=== PATIENT | female | born 1940 | race Caucasian/White ===

== ENCOUNTER 2017-02-15 06:31 | Inpatient (IN) | payer BC, OTHER ==
[2017-01-24 10:45] VITALS: BMI 41.0
--- NOTE | 2017-01-24 11:21 | PAT Medication Instructions ---
Service Date Jan 24, 2017. Current Home Medication List Atorvastatin (Lipitor), 10 MG PO QAM Levothyroxine (Synthroid *), 100 MCG PO QAM Lisinopril (Zestril), 2.5 MG PO QAM Meloxicam (Mobic), 7.5 MG PO QAM Metoprolol Succ (Toprol Xl) (Toprol-Xl), 50 MG PO QAM Warfarin Sod (Coumadin), 2.5 MG PO UD Warfarin Sod (Coumadin), 5 MG PO WED [Pulmicort], 2 PUFFS INH QAM Medication Instructions For Your Scheduled Surgery - Hold the following medications per prescribing physician/surgeon's instructions: Warfarin Sod (Coumadin), 2.5 MG PO UD Warfarin Sod (Coumadin), 5 MG PO WED - Hold the following medications the morning of surgery: Lisinopril (Zestril), 2.5 MG PO QAM Meloxicam (Mobic), 7.5 MG PO QAM - Take the following medications the morning of surgery with a sip of water OTHERWISE NOTHING TO EAT OR DRINK AFTER MIDNIGHT: [Pulmicort], 2 PUFFS INH QAM Metoprolol Succ (Toprol Xl) (Toprol-Xl), 50 MG PO QAM Atorvastatin (Lipitor), 10 MG PO QAM Levothyroxine (Synthroid *), 100 MCG PO QAM If you have any questions please call us at [phone] or [phone] or [phone]
[2017-01-24 12:08] LABS: BASO % 0.4 %; BASO ABS # 0.03 K/uL (0-0.2); COMPLETE YES; EOS % 2.2 %; HEMATOCRIT 43.3 % (37-47); IG% 0.3 %; LYMPH % 18.6 %; LYMPH ABS # 1.26 K/uL (1.2-3.4); MEAN CORPUSCULAR HEMOGLOBIN 32.9 pg (25-34); MEAN CORPUSCULAR HGB CONC 34.6 g/dl (32-36); MEAN PLATELET VOLUME 9.1 fL (7.4-10.4); MONO % 9.5 %; PLATELET COUNT 221 K/uL (130-400); RED BLOOD COUNT 4.56 M/uL (4.2-5.4); WHITE BLOOD COUNT 6.76 K/uL (4.8-10.8)
[2017-01-24 12:23] LABS: INR 2.3 (0.9-1.1); PARTIAL THROMBOPLASTIN RATIO 1.4; PROTHROMBIN TIME (PATIENT) 25.2 SECONDS (9.0-12.0)
[2017-01-24 13:33] LABS: BUN/CREATININE RATIO 16.1 (10-20); C-REACTIVE PROTEIN 0.69 mg/dl (0-0.29); CREATININE 0.69 mg/dl (0.60-1.20); POTASSIUM 4.3 mmol/L (3.5-5.1)
[2017-01-24 13:36] LABS: CALCIUM 9.4 mg/dl (8.5-10.1)
--- NOTE | 2017-02-12 22:54 | HISTORY & PHYSICAL EXAMINATION ---
DATE OF ADMISSION: 02/15/2017 CHIEF COMPLAINT: Right knee pain and discomfort. HISTORY OF PRESENT ILLNESS: A 76-year-old female who is now about 8 months out from a left knee replacement, doing well. She has a long history of bilateral knee pain and discomfort. The left knee is now doing well. She is really being held back by the right knee. She continues to have to use a cane due to right knee pain and discomfort. She has been through extensive conservative treatment by my partner Dr. Godoy without adequate relief. She cannot take anti-inflammatories due to Coumadin use. The shots gave her minimal relief and she would like to proceed with right knee replacement. PAST MEDICAL HISTORY: 1. Atrial fibrillation, followed by Dr. Palumbo, on Coumadin. 2. Elevated cholesterol. 3. Asthma. 4. Obesity with a BMI of 41.8. 5. Hypothyroidism. 6. Endometrial cancer. PAST SURGICAL HISTORY: 1. Hysterectomy. 2. Bilateral cyst excision. 3. Right knee arthroscopy. 4. Tonsillectomy. 5. Skin cancer. 6. Bartholin cyst abscess. 7. Left total knee replacement done on 06/08/2016. ALLERGIES: PENICILLIN WHICH CAUSES RASH. No respiratory problems. CURRENT MEDICINES: 1. Meloxicam 7.5 mg daily. 2. Metoprolol 50 mg a day. 3. Lisinopril 2.5 mg a day. 4. Atorvastatin 10 mg a day. 5. Levothyroxine 100 mcg a day. SOCIAL HISTORY: A 76-year-old white female, lives by herself. Does not smoke. FAMILY HISTORY: Noncontributory. REVIEW OF SYSTEMS: Significant for atrial fibrillation, on Coumadin. Denies any current chest pain or shortness of breath. No bleeding problems. No history of DVT or PE. PHYSICAL EXAMINATION: GENERAL: Reveals a healthy pleasant elderly female. She looks to be in reasonably good health. HEENT: Benign. NECK: Supple. No lymphadenopathy. LUNGS: Clear to auscultation. HEART: Has an irregularly irregular rhythm. ABDOMEN: Soft, nontender, nondistended. EXTREMITIES: Grossly neurovascularly intact except as follows: Examination of the right knee reveals slight varus alignment. She has got bony hypertrophy. Some mild edema distally. Range of motion is 10 degrees short of full extension to 110 degrees of flexion. No instability. No pain with hip motion. Examination of the left knee reveals well-healed incision. Range of motion is just a couple degrees short of full extension to 120 degrees of flexion. No instability. X-RAYS: X-ray of the right knee reviewed. It shows advanced right knee DJD. She has got complete loss of medial joint space. She has loose bodies around the knee. A little bit of tibiofemoral subluxation. ASSESSMENT: A 76-year-old white female 8 months out from a left knee replacement with advanced right knee degenerative joint disease. She has failed conservative treatment and would like to have her right knee replaced. PLAN: We are going to take her to the operating room and do a right total knee replacement. The risks and benefits of this procedure were explained to patient including but not limited to DVT, PE, , infection, neurologic injury, vascular injury, bleeding problems, pain, limited range of motion, stiffness, failure to relieve her symptoms, incomplete relief of symptoms, need for further surgery in the future, fracture, leg length inequality, nerve palsy, etc. The patient understands and desires to proceed. Informed consent was obtained. She knows to stop her Coumadin 5 days preop. She will hold lisinopril the morning of surgery and make sure she takes her metoprolol. We will need to check a PT and INR the morning of surgery. As far as discharge plans, she is hoping to be discharged to home. Her family is going to help and assist in her care as she does live by herself. She states that there will be somebody available for her and living with her 24 hours a day for the first 2 weeks. As far as DVT prophylaxis, we will plan to just use TEDs, SCDs, and Coumadin. We will start her on Coumadin postoperatively immediately. PALAK
[2017-02-15] VITALS (8 sets, daily range): BP systolic 102–157; BP diastolic 67–84; PULSE 70–91; TEMP 36.3–36.8; O2SAT 92–98; Ht 170.2 cm; Wt 121.2 kg
[~2017-02-15] VITALS: Ht 170.2 cm; Wt 121.2 kg
[~2017-02-15 06:31] MED LIST: ACETAMINOPHEN 500 MG TAB PO SCH; ATOR10TA82 PO; BUPIVACAINE 0.5 % 5 MG/1 ML PF 10ML VIAL ONE; BUPIVACAINE LIPOSOME 266 MG, BUPIVACAINE/EPINEPHRINE INJ 50 ML, SODIUM CHLORIDE 0.9% PF... INFIL SCH; BUPIVACAINE/EPINEPHRINE 0.25% 1:200,000 30 ML VIAL ONE; CEFAZOLIN 3000 MG/65 ML D5W 65 ML IV SCH; CLINDAMYCIN 600 MG/54 ML D5W 54 ML IV SCH; CMD25 PO; CMD5 PO; FAMOTIDINE 20 MG TAB PO SCH; GABAPENTIN 300 MG CAP PO SCH; LACTATED RINGER'S 1000ML 1,000 ML IV SCH; LACTATED RINGER'S 1000ML IV SCH; LACTATED RINGER'S 500 ML IV SCH; LISI-789 PO; MELO7.5T5 PO; METO50TA7 PO; METOCLOPRAMIDE HCL 10 MG TAB PO SCH; PULMICORT INH; SCOPOLAMINE 1.5 MG TDSY TD SCH; SYN100 PO; TRAMADOL HCL 50 MG TAB PO SCH; TRANEXAMIC ACID INJ 1,000 MG in SODIUM CHLORIDE 0.9% 100ML 100 ML IV SCH
--- NOTE | 2017-02-15 06:47 | History & Physical Bridge Note ---
H&P Re-Evaluation Bridge Note: I have examined the patient, reviewed the History & Physical and in the interval since the performance of the History & Physical I have noted the following changes of clinical significance: No changes noted
[2017-02-15 07:16] LABS: INR 1.2 (0.9-1.1); PARTIAL THROMBOPLASTIN RATIO 1.2; PROTHROMBIN TIME (PATIENT) 12.6 SECONDS (9.0-12.0)
[2017-02-15] MEDS ORDERED: MIDAZOLAM HCL 1 MG/ML 2ML VIAL ONE ×2 (07:24→09:10)
[2017-02-15] MEDS ORDERED: PROPOFOL IV EMULSION 10 MG/ML 20 ML VIAL IV ONE (07:32)
[2017-02-15] MEDS ORDERED: ATROPINE SULFATE 0.1 MG/ML 5ML SYR IV PRN (07:45)
[2017-02-15] MEDS ORDERED: NALOXONE HCL 0.4 MG/1 ML VIAL/CARP IV PRN (07:45)
[2017-02-15] MEDS ORDERED: FLUMAZENIL 0.1 MG/1 ML 10 ML VIAL IV PRN (07:45)
[2017-02-15] MEDS ORDERED: EpHEDrine SULFATE INJ 50 MG/ML AMP IV PRN (07:45)
[2017-02-15] MEDS ORDERED: LABETALOL HCL IV 5 MG/ML 20ML IV PRN (07:45)
[2017-02-15] MEDS ORDERED: ONDANSETRON INJ 2 MG/ML 2 ML VIAL IV PRN ×2 (07:45→10:45)
[2017-02-15] MEDS ORDERED: MEPERIDINE HCL 25 MG/ML CARP IV PRN (07:45)
[2017-02-15] MEDS ORDERED: PHENYLEPHRINE 100MCG/ML 5ML SYR IV PRN (07:45)
[2017-02-15] MEDS ORDERED: HYDROmorphone INJ 2 MG/ML SYR/VIAL IV PRN (07:45)
[2017-02-15] MEDS ORDERED: FENTANYL CITRATE INJ 50 MCG/1 ML 2 ML VIAL IV PRN (07:45)
[2017-02-15] MEDS ORDERED: BACITRACIN 50000 UNIT VIAL ONE (08:45)
[2017-02-15] MEDS ORDERED: SODIUM CHLORIDE 0.9% PF 50 ML VIAL ONE (08:45)
[2017-02-15] MEDS ORDERED: BUPIVACAINE/EPINEPHRINE 0.25% 1:200,000 30 ML VIAL ONE (08:45)
[2017-02-15] MEDS ORDERED: BUPIVACAINE LIPOSOME 1/3% 266 MG/20 ML VIAL INFIL ONE (08:45)
[2017-02-15] MEDS ORDERED: VANCOMYCIN 1GM/270ML NSS IV ONE (09:45)
--- NOTE | 2017-02-15 10:40 | [facility] Post Operative Brief Note ---
Immediate Operative Summary Operative Date February 15, 2017. Pre-Operative Diagnosis Advanced Right Knee Degenerative Joint Disease Post-Operative Diagnosis Advanced Right Knee Degenerative Joint Disease Procedure(s) Performed Right Total Knee Arthroplasty, Cemented Surgeon Dr. Montague Parachute Folder Surgeon(s) Farooq Black PA-C Estimated Blood Loss 50 mL Findings Right Knee DJD Fluids (cc crystalloids) 1300 cc Specimens A: Right Knee Bone and Tissue Drains None Anesthesia Spinal Complication(s) None Disposition Recovery Room / PACU
[2017-02-15] MEDS ORDERED: BISACODYL 10 MG SUPP PR PRN (10:45)
[2017-02-15] MEDS ORDERED: MAGNESIUM HYDROXIDE SUSP 30 ML UDC PO PRN (10:45)
[2017-02-15] MEDS ORDERED: ZOLPIDEM TARTRATE 5 MG TAB PO PRN (10:45)
[2017-02-15] MEDS ORDERED: HYDROmorphone INJ 1 MG/ML SYR IV PRN (10:45)
[2017-02-15] MEDS ORDERED: METOCLOPRAMIDE HCL INJ 5 MG/ML 2 ML VIAL IV PRN (10:45)
[2017-02-15] MEDS ORDERED: SILVER SULFADIAZINE 1% CR 50 GM JAR EXT PRN (10:45)
[2017-02-15] MEDS ORDERED: ALUMINUM/MAGNESIUM/SIMETH (MAALOX MAX) 30 ML UDC PO PRN (10:45)
--- NOTE | 2017-02-15 11:21 | DIAGNOSTIC IMAGING REPORT ---
RIGHT KNEE 1 OR 2 VIEWS ROUTINE CLINICAL HISTORY: AP/LATERAL IN PACU RIGHT KNEE Right postoperative evaluation COMPARISON: None. DISCUSSION: Anatomic alignment status post total right knee replacement. Surgical drains are in position. There is no evidence for soft tissue swelling. IMPRESSION: Anatomic alignment status post total right knee replacement Electronically signed by: Aroldo Kaba M.D. 02/15/2017 11:20 AM Dictated Date/Time: 02/15/2017 11:20 AM
--- NOTE | 2017-02-15 12:02 | Anesthesiology Progress Note ---
Anesthesia Post Op Note Date & Time February 15, 2017 at 12:02 Vital Signs Pain Intensity: 0 Vital Signs Past 12 Hours Date Time Temp Pulse Resp B/P Pulse Ox O2 Delivery O2 Flow Rate FiO2 02/15/17 11:55 69 19 114/51 97 Nasal Cannula 2 02/15/17 11:45 69 14 113/55 98 Nasal Cannula 2 02/15/17 11:35 70 20 104/55 98 Nasal Cannula 2 02/15/17 11:25 72 17 117/67 97 Nasal Cannula 2 02/15/17 11:15 66 18 128/65 99 Nasal Cannula 2 02/15/17 11:05 71 17 125/51 99 Nasal Cannula 2 02/15/17 10:55 82 17 136/75 97 Nasal Cannula 2 02/15/17 10:47 36.0 83 15 141/74 98 Nasal Cannula 2 02/15/17 07:00 36.8 91 22 157/78 96 Room Air Notes Mental Status: alert / awake / arousable, participated in evaluation Pt Amnestic to Procedure: Yes Nausea / Vomiting: adequately controlled Pain: adequately controlled Airway Patency, RR, SpO2: stable & adequate BP & HR: stable & adequate Hydration State: stable & adequate Neuraxial Anesthesia: was administered, sensory block is resolving Anesthetic Complications: no major complications apparent
[2017-02-15] MEDS: D5W AND 1/2NSS + 20MEQ KCL 1,000 ML IV SCH (14:07)
[2017-02-15] MEDS: ACETAMINOPHEN 500 MG TAB PO SCH ×2 (14:38→21:28)
--- NOTE | 2017-02-15 15:50 | OPERATIVE REPORT ---
DATE OF OPERATION: 02/15/2017 SURGEON: Jovan Montague MD STRATEGIES ANALYST: JESÚS Page PREOPERATIVE DIAGNOSIS: Right knee degenerative joint disease. POSTOPERATIVE DIAGNOSIS: Same. PROCEDURE PERFORMED: Right cemented posterior stabilized total knee arthroplasty. COMPLICATIONS: None. ESTIMATED BLOOD LOSS: 50 mL. FLUID REPLACEMENT: 1300 mL crystalloid fluid replacement. ANESTHESIA: Spinal with adductor canal block. DRAINS: None. SPECIMENS: Right knee sent for pathology. TOURNIQUET TIME: 53 minutes at 300 mmHg. OPERATIVE INDICATIONS: The patient is a 76-year-old female who has had a long history of bilateral knee pain and discomfort. The patient has been through extensive conservative care without adequate relief. She underwent a left knee replacement about 8 months ago and has done extremely well from this. She has elected to proceed with the right knee replacement. OPERATIVE FINDINGS: Operative findings revealed advanced right knee DJD. She had grade 4 [id number] disease in all 3 compartments are pretty extensive. She had a flexion contracture of 10 degrees. Moderate size joint effusion. OPERATIVE IMPLANTS: Operative implants consisted of: 1. Biomet Vanguard size 70 right posterior stabilized femoral component. 2. Biomet size 67 tibial tray. 3. A 10-mm posterior stabilized polyethylene insert. 4. A 31 x 8 all poly patella. OPERATIVE PROCEDURE: The patient taken to the operating room, identified and placed on the operating table in supine position. All contact areas were appropriately padded. IV antibiotics were provided by the anesthesia team. A spinal anesthetic had been implemented in the holding area. Avila catheter was placed in sterile fashion. A right thigh tourniquet was then placed and the right lower extremity was then prepped and draped in usual sterile fashion. The right leg was elevated and exsanguinated with Esmarch and tourniquet was placed at 300 mmHg. An anterior approach to the right knee was then performed through a longitudinal incision centered over the patella. Sharp dissection was carried out through the subcutaneous tissues down to the level of the extensor mechanism. A medial parapatellar arthrotomy incision was made. Some subperiosteal dissection was carried out medially. The fat pad was resected from beneath the patellar tendon. The lateral patellofemoral ligament was released. The patella was everted and knee was flexed. The osteophytes were taken off the distal femur. The ACL was chronically absent. The PCL was released from the distal femur and the tibia subluxated anteriorly. The external tibial alignment jig was then placed in the anterior face of the tibia and adjusted 14 mm medially. Proximal tibial cut was made about a millimeter of bone from the most deficient aspect of the medial tibial plateau. Tibia was then sized to a size 67. Some osteophytes were taken off medial and posteromedially. Attention was then drawn to the femur. The distal femur was entered with a sharp drill bit. Intramedullary canal was suctioned. A right 5 degree valgus cutting guide was placed. Distal femoral cutting block was pinned in place. Distal femoral cut was made to take an additional 3 mm of bone off the distal femur. Femur was then sized to a size 70. We did downsize this almost the whole size. The AP cutting block was pinned parallel to the epicondylar axis, which was 5 degrees of external rotation. The anterior cut, anterior chamfer, posterior cut, posterior chamfer cuts were made. Box cutting guide was placed and adjusted slightly lateral and the box cut was made. The knee was flexed. The remnants of the medial and lateral menisci were excised. The osteophytes were taken off the posterior aspect of the femur. Trial femoral component was placed. Tibial tray was pinned in maximum external rotation. Drill and stem punch were used to create defect in proximal tibia for the tibial tray. The knee was then trialed and the 10-mm insert fit most appropriately. Attention was then drawn to the patella. The patella was cleaned of all soft tissues. Patella thickness measured 22 mm in thickness and was cut down to 13. It was sized to a size 31 patella. Lug holes were drilled for the 31 patella. Lateral osteophyte was removed. Patella button was placed. Knee was taken through range of motion. The patella did track a little bit laterally with the tourniquet up. Once the tourniquet was down, it did track more appropriately. We elected to use these implants. All trial implants were removed. Bone plug was placed in the distal femur plate. A double batch of Palacos G cement was mixed. A right size 70 posterior stabilized femoral component, size 67 tibial tray, a 10-mm posterior stabilized polyethylene insert, and a 31 x 8 all poly patella were then cemented in place. Knee was brought out into full extension until cement hardened. A final cement check was then performed. Pericapsular tissues were injected with 100 mL of a combination of 20 mL of Exparel, 30 mL of normal saline, 50 mL of 0.25% Marcaine. The tourniquet was then let down for a tourniquet time of 53 minutes. Hemostasis was assured with use of electrocautery. The wound was once again irrigated. I then examined the knee again and the patella tracked appropriately with no thumbs test. Attention was then drawn towards closing. The extensor mechanism was then closed with a combination of #1 PDS suture and #1 Vicryl suture in a [id number] fashion. Extensor mechanism was checked and found to be intact. The subcutaneous tissues were then closed with 2-0 Dexon suture in a buried interrupted fashion. Skin was closed with skin tanja. Leg was then cleaned and dried and a sterile dressing of Xeroform, 4 x 4, sterile, cast padding and Kameron bandage was applied. The patient then transferred to the recovery room in stable condition. The patient tolerated the procedure well, no complications. All needle and sponge counts were correct at the end of the operation. I attest to the content of the Intraoperative Record and any orders documented therein. Any exceptio ns are noted below.
[2017-02-15] MEDS ORDERED: WARFARIN SOD 7.5 MG TAB PO ONE (16:00)
[2017-02-15] MEDS: CHECK SCOPOLAMINE PATCH PLACEMENT SCH (16:06)
[2017-02-15] MEDS: KETOROLAC TROMETHAMINE 15 MG/ML VIAL IV. SCH ×2 (16:06→21:27)
[2017-02-15] MEDS: CLINDAMYCIN IV 600 MG in DEXTROSE 5% ADD-VANTAGE 50ML 50 ML IV SCH (18:03)
[2017-02-15] MEDS: FERROUS GLUCONATE 324 MG TAB PO SCH (18:04)
[2017-02-15] MEDS: TRAMADOL HCL 50 MG TAB PO PRN (18:05)
--- NOTE | 2017-02-15 20:10 | PROGRESS NOTE ---
DATE: 02/15/2017 SUBJECTIVE: A 76-year-old white female postop from a right knee replacement. She is having a moderate amount of pain. Denies any chest pain or shortness of breath. Not feeling dizzy or lightheaded. OBJECTIVE: VITAL SIGNS: Temperature is 36.6. Vital signs stable. GENERAL: Reveals a pleasant elderly female. She is lying in bed. Looks reasonably comfortable. EXTREMITIES: Examination of the right leg reveals it to be well aligned. Her dressing is clean, dry and intact. She is neurologically intact. She can dorsiflex and plantarflex her foot appropriately. X-RAYS: X-rays of the right knee from recovery room were reviewed. It shows a right cemented posterior stabilized total knee arthroplasty. Components looked be in good position. No signs of problems. ASSESSMENT: A 76-year-old white female with multiple underlying comorbidities status post a right knee replacement, doing pretty well. Pain is controlled. She is neurologically intact. PLAN: 1. DVT prophylaxis including thigh-high TEDs, SCDs, and will start her back on her Coumadin, which she is on for her heart history. 2. PT/OT. Weightbearing as tolerated. Right total knee protocol. 3. Pain control - doing okay with current pain regimen. We have to be careful to limit narcotics to avoid confusion. 4. IV antibiotics x24 hours. 5. Cardiac issues. Will consult cardiology to manage her cardiac situation. 6. Disposition: She is hoping to be discharged to home with some friends and likely some home health, once adequately recovered. PALAK
[2017-02-15] MEDS: DOCUSATE SODIUM 100 MG CAP PO SCH (21:26)
--- NOTE | 2017-02-15 21:50 | CARDIOLOGY CONSULTATION ---
DATE OF CONSULTATION: 02/15/2017 REFERRING PHYSICIAN: Dr. Jovan Montague. CHIEF COMPLAINT: Atrial fibrillation. HISTORY OF PRESENT ILLNESS: Ms. Arlene Mathews is a 76-year-old woman with a history of paroxysmal atrial fibrillation who underwent right total knee replacement today. We were asked to evaluate the patient in the postoperative period. At the time of the interview, the patient claims to be feeling well, she is immediately postoperative and has an element of sedation. She also claims to have persistent anesthesia involving her legs, which she cannot currently feel. She is not reporting any pain. She states that prior to her surgery, she had some difficulty with activity due to right knee pain. She also had an element of mild exertional dyspnea which is chronic and unchanged. Overall, she denies any sense of palpitations or rapid heartbeats. She claims to have had 3 episodes of atrial fibrillation in the past, all of which appear to be associated with other acute medical problems. She does not have dyspnea at rest, she has no orthopnea or paroxysmal nocturnal dyspnea. She does not report any symptoms consistent with chest discomfort. PAST MEDICAL HISTORY: Significant for CREST syndrome, history of endometrial cancer status post resection, hypertension, hyperlipidemia; aforementioned paroxysmal atrial fibrillation, currently on metoprolol and warfarin; reactive airway disease, restrictive lung disease based on PFTs and a history of diverticulosis. PAST SURGICAL HISTORY: Significant for hysterectomy, adhesiolysis for small bowel obstruction, history of pilonidal cyst removal and tonsillectomy. The patient also had a recent left total knee replacement in May of 2016 and the right total knee replacement today. FAMILY HISTORY: Significant for breast cancer. SOCIAL HISTORY: The patient has a remote history of tobacco abuse, not currently smoking. She denies significant alcohol use. REVIEW OF SYSTEMS: A complete 10-system review of systems was performed and the pertinent positives noted in the history of present illness. The remainder being negative. PHYSICAL EXAMINATION: GENERAL: The patient appeared to be somewhat sleepy, but overall was alert and answered questions appropriately. Mood and affect appeared appropriate. CURRENT VITAL SIGNS: Include blood pressure 140/80 with a pulse of 77. HEENT: Sclerae are anicteric. Pupils are equal, reactive to light and accommodation. Extraocular movements were intact. NECK: Palpation of submandibular region did not reveal any significant lymphadenopathy. The carotids are palpable bilaterally. There are no bruits on auscultation. I did not appreciate any jugular venous distention, although the neck tissues were somewhat redundant. There was no evidence of thyromegaly. LUNGS: Auscultation of the lung apices reveal them to be clear. She had good air movement. There was no expiratory wheezing. She had normal respiratory effort without use of accessory muscles. HEART: Revealed her to be in a regular rhythm. I did not appreciate any murmurs on examination. PMI was not markedly displaced on palpation. EXTREMITIES: Evaluation of both wrists revealed radial pulses that were equal in intensity. There is no evidence of cyanosis or clubbing. Evaluation of lower extremities revealed the right leg to be bandaged. She had SCDs on both legs. There was no evidence of edema; however, she had good perfusion distally. I do not appreciate any rashes on examination today. LABORATORY: There are no laboratory studies for review. EKG is pending. On an outpatient basis, the patient did have an echocardiogram performed which revealed preserved left ventricular systolic function and stage I diastolic dysfunction. ASSESSMENT AND PLAN: 1. Paroxysmal atrial fibrillation: The patient appears to be in sinus rhythm currently. She is relatively asymptomatic with episodes of atrial fibrillation, so she may have occult episodes that are under recognized. She has, however, on metoprolol and generally speaking systemic anticoagulation. While her warfarin was held for several days leading up to her surgery is scheduled to be reintroduced this evening and this can be continued in the outpatient setting. I would not advocate any change in her medical regimen currently for atrial fibrillation. We will review EKG when it is available.
[2017-02-15] MEDS ORDERED: VANCOMYCIN INJ 1,800 MG in SODIUM CHLORIDE 0.9% 500ML 500 ML IV SCH (22:00)
[2017-02-16] MEDS: CHECK SCOPOLAMINE PATCH PLACEMENT SCH ×3 (00:11→16:45)
[2017-02-16] MEDS: D5W AND 1/2NSS + 20MEQ KCL 1,000 ML IV SCH ×2 (00:11→10:03)
[2017-02-16] MEDS: CLINDAMYCIN IV 600 MG in DEXTROSE 5% ADD-VANTAGE 50ML 50 ML IV SCH (01:44)
[2017-02-16 03:00] VITALS: BP 144/80; PULSE 70; TEMP 36.7; O2SAT 92
[2017-02-16] MEDS: KETOROLAC TROMETHAMINE 15 MG/ML VIAL IV. SCH ×2 (03:52→10:03)
[2017-02-16] MEDS: LEVOTHYROXINE 100 MCG TAB PO SCH (05:52)
[2017-02-16] MEDS: ACETAMINOPHEN 500 MG TAB PO SCH ×3 (05:54→21:32)
[2017-02-16 07:02] LABS: HEMATOCRIT 38.5 % (37-47); MEAN CELL VOLUME 97.2 fL (80-100); MEAN CORPUSCULAR HEMOGLOBIN 32.1 pg (25-34); MEAN PLATELET VOLUME 9.3 fL (7.4-10.4); PLATELET COUNT 192 K/uL (130-400); RED BLOOD COUNT 3.96 M/uL (4.2-5.4)
[2017-02-16 07:33] LABS: INR 1.3 (0.9-1.1); PROTHROMBIN TIME (PATIENT) 14.3 SECONDS (9.0-12.0)
[2017-02-16 07:34] VITALS: BP 124/75; PULSE 82; TEMP 36.8; O2SAT 93
[2017-02-16 07:39] LABS: BUN/CREATININE RATIO 19.5 (10-20); CALCIUM 8.2 mg/dl (8.5-10.1); CREATININE 0.6 mg/dl (0.60-1.20); POTASSIUM 4.4 mmol/L (3.5-5.1)
--- NOTE | 2017-02-16 08:15 | Anesthesiology Progress Note ---
Anesthesia Post Op Note Date & Time February 16, 2017 at 08:15 Vital Signs Pain Intensity: 1.0 Vital Signs Past 12 Hours Date Time Temp Pulse Resp B/P Pulse Ox O2 Delivery O2 Flow Rate FiO2 02/16/17 07:34 36.8 82 16 124/75 93 Room Air 02/16/17 03:00 36.7 70 19 144/80 92 Room Air 02/16/17 00:15 Room Air 02/15/17 22:53 36.3 75 16 154/75 92 Room Air Notes Mental Status: alert / awake / arousable, participated in evaluation Pt Amnestic to Procedure: Yes Nausea / Vomiting: adequately controlled Pain: adequately controlled Airway Patency, RR, SpO2: stable & adequate BP & HR: stable & adequate Hydration State: stable & adequate Neuraxial Anesthesia: sensory block resolved Anesthetic Complications: no major complications apparent
[2017-02-16] MEDS: PANTOprazole SOD 40 MG TAB PO SCH (08:23)
[2017-02-16] MEDS: FERROUS GLUCONATE 324 MG TAB PO SCH ×3 (08:23→17:51)
[2017-02-16] MEDS: MULTIVITAMIN TAB PO SCH (08:23)
[2017-02-16] MEDS: ATORVASTATIN 10 MG TAB PO SCH (08:24)
[2017-02-16] MEDS: DOCUSATE SODIUM 100 MG CAP PO SCH ×2 (08:24→21:33)
[2017-02-16] MEDS: LISINOPRIL 2.5 MG TAB PO SCH (08:24)
[2017-02-16] MEDS: BUDESONIDE 90 MCG INH INH SCH (08:25)
[2017-02-16] MEDS: METOPROLOL SUCC 50MG EXT REL TAB PO SCH (08:25)
--- NOTE | 2017-02-16 09:35 | CARDIOLOGY PROGRESS NOTE ---
DATE: 02/16/2017 DATE: 02/16/2017. SUBJECTIVE: Mrs. Mathews is resting comfortably at the bedside without complaints of chest pain, dyspnea, or palpitations. Postoperative pain adequately controlled. OBJECTIVE: VITAL SIGNS: Blood pressure 124/75 with a regular pulse of 82. Respiratory rate is 16. The patient is afebrile at 36.8 degrees Celsius. Saturation 93% on room air. NECK: Supple with full carotid upstrokes. No carotid bruits. Jugular venous pressure is flat at 90 degrees. There is no thyromegaly. CARDIOVASCULAR EXAMINATION: Reveals a regular rhythm with normal S1 and S2. Heart sounds are distant. No obvious murmurs. LUNGS: Clear without rales, rhonchi, or wheezes. ABDOMEN: Obese without bruits. EXTREMITIES: Reveal intact radial artery pulses bilaterally. Right lower extremity is dressed. LABORATORY DATA: CBC notes a hemoglobin of 12.7, hematocrit 38.5, white count 9.1, platelet count 192,000. Electrolytes note a sodium of 132, potassium 4.4, chloride 96, bicarbonate 32, BUN 12, creatinine 0.6, glucose 124. INR is 1.3. MEDICATIONS: 1. Toprol-XL 50 mg per day. 2. Zestril 2.5 mg daily. 3. Lipitor 10 mg at bedtime. 4. Warfarin 7.5 mg x1. 5. Protonix 40 mg per day. 6. Synthroid 0.1 mg daily. 7. Pulmicort 2 puffs q.a.m. 8. Colace 100 mg b.i.d. 9. Iron sulfate 325 mg t.i.d. 10. Toradol 50 mg IV q. 6 hours. IMPRESSION AND PLAN: 1. Status post right total knee replacement per Dr. Montague. 2. Paroxysmal atrial fibrillation -- patient remains in sinus rhythm clinically. Will restart warfarin when able. 3. Hypertension -- controlled. 4. Hypercholesterolemia.
[2017-02-16 11:22] VITALS: BP 117/75; PULSE 76; TEMP 36.9; O2SAT 94
[2017-02-16] MEDS ORDERED: ULT50X PO (12:43)
[2017-02-16] MEDS ORDERED: ACET-1138 PO (12:43)
--- NOTE | 2017-02-16 12:48 | Discharge Instructions ---
Discharge Instructions Date of Service February 16, 2017. Admission Reason for Admission: Right Knee Degenerative Joint Disease Discharge Discharge Diagnosis / Problem: Right Knee Replacement Discharge Goals Goal(s): Decrease discomfort, Improve function, Increase independence, Improve disease control, Therapeutic intervention Activity Recommendations Activity Level: Assistance Required Therapies: Physical Therapy, Occupational Therapy Weightbearing Status: Right weightbearing . Additional Information Patient informed of condition: Yes Advance Directives: No DNR: No Level of Care: Acute Rehab Communicable Disease: No Prognosis: Improving Instructions / Follow-Up Instructions / Follow-Up ACTIVITY RECOMMENDATIONS: Physical Therapy: * You will go to physical therapy three times each week for four to six weeks after your surgery in order to regain your knee range of motion and to retrain your knee to work properly. * It is just as important to make sure you are getting your knee perfectly straight as it is to regain your knee bend. * Taking a pain pill an hour before therapy can help you have a more productive and comfortable therapy session. Home Exercise: * You were shown a series of exercises (heel props, heel slides, etc.) in the hospital. Do these exercises three to four times each day including the exercises you were shown in physical therapy. Walking: * Get up and walk several times each day. For the first four weeks, try not to stand or walk for more than one hour at a time. If you do stand or walk for more than one hour, you will not hurt anything, but your knee and leg will likely swell. * As you feel comfortable, you may change from the walker or crutches to a cane and then to independent walking. MEDICATIONS: New Medicine: * You will likely be taking one or more of these medications: 1. Tramadol - A quick and shorter-acting pain medication. Take one to two tablets every four to six hours to lessen your pain. 2. Coumadin - Thins your blood to lessen the chance of forming a blood clot. * The most common side effects of pain medicine and iron are nausea and constipation. If nausea or constipation is too much of a problem or if you have any questions about your new medicines or doses, call [facility] at [phone]. We will try to help you manage these issues. VERY IMPORTANT TO READ AND REVIEW" Pain: * The immediate post-operative period after knee replacement surgery is often quite painful. * You are given a prescription for pain medicine. You should take it, as directed, when you need it, especially before physical therapy and before going to bed. Pain that interferes with sleep is very common and can last several months. * You will likely need pain medicine for the first four to six weeks. It will not stop all of the pain. The pain will lessen and as you feel better, you may change to milder pain medicine such as Tylenol. * The most common side effects of pain medicine are nausea and constipation, so don't take more than you need. SPECIAL CARE INSTRUCTIONS: TEDs/Elastic Stockings: * The white elastic stockings help limit swelling and prevent blood clots from forming in your legs. The more you wear them, the more they work. * Wear them for six weeks after knee replacement surgery and four weeks after partial knee replacement. Prevention of Infection: * Take antibiotics one hour before any dental cleaning, dental work, urological procedure, gastrointestinal procedure or any invasive surgery in order to prevent your new joint from getting infected. * You may get the antibiotics from the doctor performing the procedure or you may call our office at before and we will call in a prescription to the pharmacy of your choice. Things to Watch For: * Drainage from the incision site that occurs more than one week after your surgery. * Severely increased knee/leg pain or swelling. * Increased redness at the incision site. * Fever above 102 degrees Fahrenheit. * Unusual chest pain or shortness of breath. * Unusual pain or burning with urination. Call [facility] at with any of the above problems or if you have any questions about your medicines or recovery. FOLLOW UP VISIT: Make an appointment to see your doctor for approximately two weeks after surgery for a progress check and staple removal by calling the office at . Current Hospital Diet Patient's current hospital diet: Regular Diet Discharge Diet Recommended Diet: Regular Diet Procedures Procedures Performed: Right Total Knee Arthroplasty, Cemented Pending Studies Studies pending at discharge: no Medical Emergencies . Who to Call and When: Medical Emergencies: If at any time you feel your situation is an emergency, please call [phone] immediately. . Non-Emergent Contact Non-Emergency issues call your: Primary Care Provider, Surgeon . . "Provider Documentation" section prepared by Jovan Montague. . Business Administration Teacher Recommendations Business Administration Teacher Recommendations: Adjust coumadin dose to keep INR between 2.0 and 3.0 Core Measure Problem Core Measures: None
--- NOTE | 2017-02-16 12:54 | PROGRESS NOTE ---
DATE: 02/16/2017 SUBJECTIVE: 76-year-old white female postop day 1 from right knee replacement. She is doing pretty well. Pain is controlled. She does have difficulty getting around without significant assistance. She denies any chest pain or shortness of breath. OBJECTIVE: VITAL SIGNS: Temperature 36.9. Vital signs stable. PHYSICAL EXAMINATION: GENERAL: Pleasant elderly female. She is sitting up in her bedside chair and looks pretty comfortable. EXTREMITIES: Examination of the right leg reveals the dressing to be clean, dry and intact. She can dorsiflex and plantarflex her foot appropriately. She is neurologically intact. LABORATORY DATA: Hemoglobin is 12.7. Hematocrit 38.5. Electrolytes are stable. ASSESSMENT: 76-year-old white female postop day 1 from a left total knee replacement, doing pretty well. She is fairly limited in her physical capacity due to just age and multiple medical issues and deconditioning. PLAN: 1. DVT prophylaxis including thigh-high TEDS, SCDs, and she is back on her Coumadin. Will monitor this with a goal of keeping her INR between 2 and 3. 2. PT and OT. Weight bear as tolerated. Right total knee protocol. 3. Pain control. Doing well with current pain regimen. 4. Disposition: Disposition is pending. She was hoping to go home, but feels now that is unlikely as she is requiring a lot of assistance. We are looking into her rehab/correction facility options for her.
[2017-02-16 15:29] VITALS: BP 145/77; PULSE 83; TEMP 36.7; O2SAT 95
[2017-02-16] MEDS ORDERED: WARFARIN SOD 5 MG TAB PO ONE (16:00)
[2017-02-16] MEDS ORDERED: NURSING VERBAL MED ORDER ONE (16:00)
[2017-02-16 16:10] VITALS: BP 148/83; PULSE 81; TEMP 36.7; O2SAT 94
[2017-02-16 23:40] VITALS: BP 182/97; PULSE 83; TEMP 36.7; O2SAT 92
[2017-02-17] VITALS (7 sets, daily range): BP systolic 110–187; BP diastolic 74–87; PULSE 78–98; TEMP 36.2–37.1; O2SAT 92–97
[2017-02-17] MEDS: CHECK SCOPOLAMINE PATCH PLACEMENT SCH
[2017-02-17 05:59] LABS: PROTHROMBIN TIME (PATIENT) 21.5 SECONDS (9.0-12.0)
[2017-02-17] MEDS: ACETAMINOPHEN 500 MG TAB PO SCH ×3 (06:02→21:41)
[2017-02-17] MEDS: LEVOTHYROXINE 100 MCG TAB PO SCH (06:02)
--- NOTE | 2017-02-17 07:29 | PROGRESS NOTE ---
DATE: 02/17/2017 SUBJECTIVE: 76-year-old white female postop day 2 from right knee replacement. She is doing pretty well. Pain is controlled. She has been a little but mildly confused since surgery. No focal neurological issues. Denies any chest pain or shortness of breath. OBJECTIVE: VITAL SIGNS: Temperature 36.2. Vital signs stable. PHYSICAL EXAMINATION: GENERAL: Reveals a pleasant elderly female. She is lying in bed. She is awake, alert and oriented. EXTREMITIES: Examination of the right leg reveals a little bit of bloody drainage on her dressing. She can dorsiflex and plantarflex her foot appropriately. She is neurologically intact. LABORATORY DATA: INR is 2.0. ASSESSMENT: 76-year-old white female with multiple medical issues postop day 2 from right knee replacement. She has had some mild confusion likely related to surgery, anesthesia, medicines, and foreign environment. There are no focal neurological deficits and she is alert and relatively appropriate this morning. PLAN: 1. DVT prophylaxis including thigh-high TEDs, SCDs, and Coumadin. Her INR is in the therapeutic range. 2. PT/OT. Weightbearing as tolerated. Right total knee protocol. 3. Pain control, doing pretty well with current pain regimen. We are going to limit narcotics to avoid confusion issues. 4. Disposition: She is hoping to be discharged to rehab or penitentiary facility. She was initially planning to go home, but realizes this is less likely. She has multiple medical issues and needs some more assistance.
[2017-02-17] MEDS: BUDESONIDE 90 MCG INH INH SCH (08:29)
[2017-02-17] MEDS: MULTIVITAMIN TAB PO SCH (08:30)
[2017-02-17] MEDS: FERROUS GLUCONATE 324 MG TAB PO SCH ×3 (08:30→17:56)
[2017-02-17] MEDS: METOPROLOL SUCC 50MG EXT REL TAB PO SCH (08:30)
[2017-02-17] MEDS: PANTOprazole SOD 40 MG TAB PO SCH (08:30)
[2017-02-17] MEDS: ATORVASTATIN 10 MG TAB PO SCH (08:30)
[2017-02-17] MEDS: DOCUSATE SODIUM 100 MG CAP PO SCH ×2 (08:32→21:40)
[2017-02-17] MEDS: LISINOPRIL 2.5 MG TAB PO SCH (08:32)
[2017-02-17] MEDS: TRAMADOL HCL 50 MG TAB PO PRN ×2 (09:14→17:59)
--- NOTE | 2017-02-17 09:22 | CARDIOLOGY PROGRESS NOTE ---
DATE: 02/17/2017 SUBJECTIVE: Mrs. Mathews is resting comfortably in bed without complaints of chest pain, dyspnea or palpitations. OBJECTIVE: VITAL SIGNS: Blood pressure is 110/87 with a regular pulse of 86. Respiratory rate is 18. The patient is afebrile at 36.2 degrees Celsius. Saturation is 92% on room air. NECK: Supple with full carotid upstrokes. There are no obvious bruits. Jugular venous pressure is difficult to assess. CARDIOVASCULAR: Reveals a regular rhythm with normal S1 and S2. Heart sounds are distant. No obvious bruits. LUNGS: Clear without rales, rhonchi or wheezes. ABDOMEN: Obese without bruits. EXTREMITIES: Reveal intact radial artery pulses bilaterally. Right lower extremity is dressed. DATA: INR is 2.0. IMPRESSION AND PLAN: 1. Status post right total knee replacement -- per Dr. Montague. 2. Paroxysmal atrial fibrillation -- in sinus rhythm this morning clinically. Was told she had paroxysmal atrial fibrillation overnight. INR is now therapeutic. 3. Hypertension -- adequate control. 4. Hypercholesterolemia.
[2017-02-17] MEDS ORDERED: WARFARIN SOD 3 MG TAB PO ONE (16:00)
[2017-02-18] MEDS: LEVOTHYROXINE 100 MCG TAB PO SCH (05:28)
[2017-02-18] MEDS: ACETAMINOPHEN 500 MG TAB PO SCH ×2 (05:29→13:58)
[2017-02-18 05:45] LABS: INR 2.2 (0.9-1.1); PROTHROMBIN TIME (PATIENT) 23.9 SECONDS (9.0-12.0)
[2017-02-18] MEDS: TRAMADOL HCL 50 MG TAB PO PRN ×3 (05:45→15:23)
[2017-02-18 07:50] VITALS: BP 148/76; PULSE 75; TEMP 36.5; O2SAT 93
--- NOTE | 2017-02-18 08:04 | PROGRESS NOTE ---
DATE: 02/18/2017 DATE: 02/18/2017. SUBJECTIVE: A 76-year-old white female postop day 3 from a right total knee replacement. She is doing pretty well. She is awake, alert and oriented. Having some pain but reasonably controlled. No chest pain or shortness of breath. Not feeling dizzy or lightheaded. OBJECTIVE: VITAL SIGNS: Temperature 36.6. Vital signs stable. PHYSICAL EXAMINATION: GENERAL: Reveals a healthy, pleasant elderly female. She is lying in bed, looks reasonably comfortable. EXTREMITIES: Examination of the right leg reveals some moderate swelling. She does have pretty extensive bruising around her incision and some blistering particularly laterally. A little seeping of the blisters as well. She can dorsiflex and plantarflex her foot appropriately. Her compartments are soft. ASSESSMENT: A 76-year-old white female postop day 3 from a right knee replacement with a history of atrial fibrillation and on Coumadin. She is doing pretty well. Having quite a bit of swelling likely related to her surgery and just Coumadin use and bruising. No signs of compartment issues or other concerns. PLAN: 1. DVT prophylaxis including thigh-high TEDs, SCDs, and Coumadin. She is currently now therapeutic. 2. PT/OT. She can weightbear as tolerated. Right total knee protocol. 3. Pain control. Doing reasonably well with current pain regimen. We have to be careful to avoid narcotics to avoid confusion. 4. Disposition: Plan to discharge to either rehab or long term facility. We will hopefully hear today and transfer her today.
[2017-02-18] MEDS: METOPROLOL SUCC 50MG EXT REL TAB PO SCH (08:25)
[2017-02-18] MEDS: FERROUS GLUCONATE 324 MG TAB PO SCH ×2 (08:26→12:29)
[2017-02-18] MEDS: ATORVASTATIN 10 MG TAB PO SCH (08:26)
[2017-02-18] MEDS: MULTIVITAMIN TAB PO SCH (08:26)
[2017-02-18] MEDS: PANTOprazole SOD 40 MG TAB PO SCH (08:26)
[2017-02-18] MEDS: BUDESONIDE 90 MCG INH INH SCH (08:26)
[2017-02-18] MEDS: DOCUSATE SODIUM 100 MG CAP PO SCH (08:26)
[2017-02-18] MEDS: LISINOPRIL 2.5 MG TAB PO SCH (08:26)
--- NOTE | 2017-02-18 09:40 | CARDIOLOGY PROGRESS NOTE ---
DATE: 02/18/2017 DATE: 02/18/2017. SUBJECTIVE: Mrs. Mathews is resting comfortably in the bedside chair without complaints of chest pain, dyspnea, or palpitations. She is anxious for hospital discharge. Postoperative pain is adequately controlled. OBJECTIVE: VITAL SIGNS: Blood pressure is 125/75. Pulse 75. Respiratory rate is 18. The patient is afebrile at 36.5 degrees Celsius. Saturation 93% on room air. NECK: Supple with full carotid upstrokes. No carotid bruits. Jugular venous pressure is flat at 90 degrees. There is no thyromegaly. CARDIOVASCULAR EXAMINATION: Reveals a regular rhythm with normal S1 and S2. Heart sounds are distant. No obvious murmurs. No S3. LUNGS: Clear without rales, rhonchi, or wheezes. ABDOMEN: Obese without bruits. EXTREMITIES: Reveal intact radial artery pulses bilaterally. Right lower extremity is dressed. LABORATORY DATA: INR is 2.2. IMPRESSION AND PLAN: 1. Status post right total knee replacement, management per Dr. Montague. 2. Paroxysmal atrial fibrillation -- remains in sinus rhythm on physical examination. INR is now therapeutic. 3. Hypertension -- controlled. 4. Hypercholesterolemia. MTDD
[2017-02-18 12:15] VITALS: BP 148/76; PULSE 75; TEMP 36.5; O2SAT 93
[2017-02-18] MEDS ORDERED: WARFARIN SOD 2.5 MG TAB PO SCH (16:00)
--- NOTE | 2017-02-23 16:11 | DISCHARGE SUMMARY ---
ADMITTING PHYSICIAN AND SURGEON: Dr. Montague. ADMITTING DIAGNOSIS: Right knee degenerative joint disease. SURGERY PERFORMED: Right total knee arthroplasty. SECONDARY DIAGNOSES: Include atrial fibrillation, elevated cholesterol, asthma, obesity, hypothyroidism, endometrial cancer. CONSULTS: Dr. Palumbo, postoperative cardiac care. HISTORY AND PHYSICAL EXAMINATION: Well documented in the patient's chart. HOSPITAL COURSE: The patient was admitted on 02/15/2017 and underwent total knee arthroplasty, tolerated the procedure well, there were no complications and transferred to the PACU postoperatively and later to the orthopedic floor for further care. She was given clindamycin for antibiotic prophylaxis, BRIGIDO stockings, SCDs and Coumadin for DVT prophylaxis. Her INR was monitored daily and dosed accordingly. Hemoglobin, hematocrit and vital signs were monitored during her hospital stay and remained stable. She did not require any blood transfusions. She was followed by Dr. Palumbo with cardiology service throughout her hospital stay as well. By postoperative day #3, she was tolerating a general diet, pain was controlled with oral pain medicine. She was participating in physical therapy and had no signs or symptoms of deep vein thrombosis. On postop day #3, she was discharged to a rehab facility. She was given printed discharge instructions including new prescriptions for extra strength Tylenol and tramadol for pain. Continue her home medicines including warfarin, continue physical therapy, weightbearing as tolerated, BRIGIDO stockings and follow up with Dr. Montague in 10-12 days or sooner if there are any problems or concerns.
== END 2017-02-18 15:46 | DRG 470 ==
LOC: ENRESERVDT → ENRESERVTM → C.ACU 06:31 → C.3E 06:45
PROVIDERS: ADMIT Orthopaedic Surgery Sports Medicine; ATTEND Orthopaedic Surgery Sports Medicine
PROC: 0SRC0J9 Replacement of Right Knee Joint with Synthetic Substitute, Cemented, Open Approach (ICD-10-PCS; principal; 2017-02-15 08:50)
DX: M17.11 Unilateral primary osteoarthritis, right knee (principal); Z68.41 Body mass index [BMI] 40.0-44.9, adult; E66.01 Morbid (severe) obesity due to excess calories; I48.91 Unspecified atrial fibrillation; E78.00 Pure hypercholesterolemia, unspecified; J45.909 Unspecified asthma, uncomplicated; E03.9 Hypothyroidism, unspecified; R41.0 Disorientation, unspecified; R53.81 Other malaise; I10 Essential (primary) hypertension; M25.461 Effusion, right knee; Z96.652 Presence of left artificial knee joint; Z79.1 Long term (current) use of non-steroidal anti-inflammatories (NSAID); Z79.01 Long term (current) use of anticoagulants; Z79.899 Other long term (current) drug therapy; Z87.891 Personal history of nicotine dependence; Z85.42 Personal history of malignant neoplasm of other parts of uterus

== ENCOUNTER → 2017-02-21 | Outpatient (CLI) | payer BC ==
[~2017-02-21] MED LIST changes: +ACET-1138 PO; -ACETAMINOPHEN 500 MG TAB PO SCH; -BUPIVACAINE 0.5 % 5 MG/1 ML PF 10ML VIAL ONE; -BUPIVACAINE LIPOSOME 266 MG, BUPIVACAINE/EPINEPHRINE INJ 50 ML, SODIUM CHLORIDE 0.9% PF... INFIL SCH; -BUPIVACAINE/EPINEPHRINE 0.25% 1:200,000 30 ML VIAL ONE; -CEFAZOLIN 3000 MG/65 ML D5W 65 ML IV SCH; -CLINDAMYCIN 600 MG/54 ML D5W 54 ML IV SCH; -FAMOTIDINE 20 MG TAB PO SCH; -GABAPENTIN 300 MG CAP PO SCH; -LACTATED RINGER'S 1000ML 1,000 ML IV SCH; -LACTATED RINGER'S 1000ML IV SCH; -LACTATED RINGER'S 500 ML IV SCH; -METOCLOPRAMIDE HCL 10 MG TAB PO SCH; -SCOPOLAMINE 1.5 MG TDSY TD SCH; -TRAMADOL HCL 50 MG TAB PO SCH; -TRANEXAMIC ACID INJ 1,000 MG in SODIUM CHLORIDE 0.9% 100ML 100 ML IV SCH; +ULT50X PO
[2017-02-21 10:40] LABS: INR 2.2 (0.9-1.1); PROTHROMBIN TIME (PATIENT) 23.9 SECONDS (9.0-12.0)
== END | disposition home or self-care (01) ==
LOC: C.LABVPSUA 10:21
PROVIDERS: ATTEND Internal Medicine Critical Care Medicine
DX: I48.91 Unspecified atrial fibrillation (principal)

== ENCOUNTER 2019-03-30 03:23 | Inpatient (IN) ==
--- OUTSIDE RECORDS SUMMARY | 2019-03-30 03:26 | External Medical Summary | Continuity of Care Document ---
:1940 Author Name Floyd Gaytan, Provider Address Unavailable Unavailable , Care Team Providers Name Role Phone Rayray Villalta [email or web address] Chai VILLALTA M.D. 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) Reactive airway disease (493.90) (J45.909) Encounter for long-term (current) use of medications (V58.69 ) (Z79.899) Hyperlipidemia (272.4) (E78.5) Paroxysmal atrial fibrillation (427.31) (I48.0) Hypertension (401.9) (I10) Muscle weakness (728.87) (M62.81) Left shoulder pain (719.41) (M25.512) Arthritis (716.90) (M19.90) Right ankle pain (719.47) (M25.571) Shortness of breath (786.05) (R06.02) Encounter for long-term (current) use of NSAIDs (V58.64) (Z7 9.1) Elevated antibody levels (795.79) (R76.0) Right knee pain (719.46) (M25.561) Low back pain (724.2) (M54.5) Osteopenia (733.90) (M85.80) Pulmonary function studies abnormal (794.2) (R94.2) History of dermatitis (V13.3) (Z87.2) St atus: Resolved Fatigue (780.79) (R53.83) Hyperglycemia (790.29) (R73.9) Restrictive lung disease (518.89) (J98.4) Hypothyroidism (244.9) (E03.9) Allergies and Adverse Reactions Penicillins (Allergy) Reaction: Rash Medications Meloxicam 7.5 MG Oral Tablet; take 1 tablet by mouth o nce daily Soljacqueline, M.D. Kun. Start: 25-May-2012 Quantity: 90 Refills: 3 Warfarin Sodium 5 MG Oral Tablet; TAKE 1 TABLET BY MOUTH ONCE DAILY DIRECTED. Lucila Palumbo Start: 01-Feb-2013 Quantity: 1 90 Tablet Bottle Refills: 3 Lisinopril 2.5 MG Oral Tablet; TAKE ONE TABLET BY MOUT H DAILY Lucila Villalta Start: 06-May-2015 Quantity: 90 Refills: 3 Atorvastatin Calcium 10 MG Oral Tablet; TAKE 1 TABLET BY MOUTH ONCE DAILY AT BEDTIME. Lucila Villalta Start: 14-Oct-2014 Quantity: 90 Refills: 3 Levothyroxine Sodium 100 MCG Oral Tablet; TAKE ONE TAB LET BY MOUTH DAILY Lucila Villalta Start: 24-Jan-2012 Quantity: 90 Refills: 3 Metoprolol Succinate ER 50 MG Oral Table t Extended Release 24 Hour; TAKE ONE TABLET BY MOUTH DAILY Lucila Villalta Start: 06-May-2015 Quantity: 90 Refills: 3 Fluocinonide 0.05 % External Cream; APPLY TWICE DAILY DIRECTED NEEDED Lucila Villalta 120 GM Tube Quantity: 3 Refills: 6 Pulmicort Flexhaler 180 MCG/ACT Inhalati on Aerosol Powder Breath Activated; USE 2 PUFFS BY MOUTH 2 TIMES A DAY Lucila Villalta Start: 16-Aug-2014 Quantity: 1 Refills: 11 Procedures History of Laparoscopic Lysis Of Intestinal Status: Completed 20-Jan-2010 0:00 Adhesions History of Hysterectomy Status: Complete d 10-Oct-2005 0:00 History of Pilonidal Cyst Resection Stat us: Completed History of Tonsillectomy Status: Complet ed History of Complete Colonoscopy Status: Completed Immunizations Fluzone INJ On: 19-Sep-2012 10:40 Lot #: [id number], [employer] PASTEUR Influenza On: 17-Jul-2013 11:25 Lot #: [id number], [employer]FI PASTEUR Fluzone High-Dose Intramuscular Suspension On: 16-Aug-2014 11 :47 Lot #: [id number], [employer]OFI PASTEUR Fluzone High-Dose Intramuscular Suspension On: 10-Aug-2017 15 :11 Lot #: [id number], SANOFI PASTEUR Family History Mother Family history of Congestive Heart Failure Status: Active Family history of Breast Cancer (V16.3) Status: Active Social History - Smoking Status Former smoker Plan of Treatment Planned Encounters Appointment; Rayray Villalta M.D. Start: 11-Jul-2019 11:[address] Planned Observations Planned Goals not documented Results No Known Results Results not documented Vital Signs 13-Mar-2019 15:54 other 2.5 Comments: INR other [id number] Comments: INR Goal Encounters Appointment; Rashaad Palumbo M.D. 29-Dec-2018 15:15 Encounter Diagnosis: Problem not documented Appointment; Rayray Villalta M.D. 28-Dec-2018 13:30 Encounter Diagnosis: Problem not documented Appointment; Rayray Villalta M.D. 10-Aug-2017 14:45 Encounter Diagnosis: Problem not documented Appointment; [facility] 28-Jul-2017 10:50 Encounter Diagnosis: Problem not documented Appointment; Rashaad Palumbo M.D. 04-Jul-2017 13:45 Encounter Diagnosis: Problem not documented Appointment; Ryaray Villalta M.D. 11-Jul-2019 11:45 Encounter Diagnosis: Problem not documented
[2019-03-30] MEDS ORDERED: ONDANSETRON INJ 2 MG/ML 2 ML VIAL IV STA (03:27)
[2019-03-30] MEDS ORDERED: SODIUM CHLORIDE 0.9% 1000ML 1,000 ML IV SCH (03:30)
[2019-03-30] MEDS ORDERED: PANTOprazole 80 MG in DEXTROSE 5% 100 ML IV STA (03:35)
--- NOTE | 2019-03-30 03:35 | Emergency Department Note ---
Entered by Vinicius Rodríguez acting as a scribe for Hanna Donohue MD History of Present Illness General Chief complaint: GI Bleed Stated complaint: GI BLEED Time Seen by Provider: 03/30/19 03:25 Source: patient History of Present Illness Provider complaint: Bloody emesis Onset (ago): hour(s) less than 1 Location: abdomen Pain Consistency: + intermittent Exacerbated By: + none Associated symptoms: + denies other symptoms, + nausea/vomiting and + other (abdominal hardness) The patient is an 78 y/o female who presents to the emergency department for evaluation of intermittent bloody emesis that occurred prior to arrival. The patient states that she woke up and had blood in her emesis that was a browner color as well as an abdomen that feels hard. She notes that she is on Coumadin for A-Fib. She reports that she takes her INR levels at home once a month, last taken three weeks ago at 2.5. She notes she has had GI issues and abdominal surgeries in the past, as well as had similar symptoms roughly three years ago. The patient denies any other symptoms. Home Medications Home Medications Medication Instructions Recorded Confirmed Type atorvastatin 10 mg PO DAILY 10/28/18 03/30/19 History levothyroxine 100 mg PO DAILY 10/28/18 03/30/19 History lisinopril 2.5 mg PO DAILY 10/28/18 03/30/19 History meloxicam 7.5 mg PO DAILY 10/28/18 03/30/19 History metoprolol succinate 50 mg PO DAILY 10/28/18 03/30/19 History warfarin 2.5 mg PO DAILY 10/28/18 03/30/19 History polyethylene glycol 3350 [Miralax] 17 gm PO DAILY PRN #1 ea 04/01/19 Rx sennosides-docusate sodium [Stool 1 tab PO BID #1 tab 04/01/19 Rx Softener-Stimulant Laxat] Allergies Allergy/AdvReac Type Severity Reaction Status Date / Time Penicillins Allergy Intermediate RASH AND Verified 03/30/19 04:39 ITCHING ON TORSO. FRAGRANCE AdvReac Sneezing Uncoded 03/30/19 04:39 Past Med/Surg History Medical History Endometrial cancer Surgical History S/P partial hysterectomy Family History Other Family history non-contributory Social History Preferred Language: Polish Communication Ability: Effective Baby Stroller Rental Clerk Required: No Beliefs That Will Affect Care: None Current Living Situation: Alone Other Information That Helps Us Care for You: No Feels Safe at Home: Yes Safety Concerns: Feels Safe At This Time Smoking Status: Former smoker Smoking End Date: October 31, 1998 Hx Alcohol Use: Yes Alcohol type: wine Hx Substance Use: No Review of Systems See HPI for pertinent positives & negatives. and A total of 10 systems reviewed and were otherwise negative Physical Exam Vital Signs Vital Signs - 24 hr 03/30/19 03:42 03/30/19 03:43 03/30/19 03:59 Temperature 36.5 C Temperature Source Oral Sepsis Recent Fever Within 48 Hours No Sepsis New/Unexplained Change in Mental Status No Sepsis Action Taken by Nursing No Action Required Pulse Rate 76 76 Pulse Rate [Apical] 74 Pulse Rhythm Irregular Irregular Pulse Rhythm [Apical] Regular Respiratory Rate 18 18 Respiratory Effort / Characteristics Non-Labored Spontaneous Respiratory Depth Normal Normal Respiratory Pattern Regular Blood Pressure 176/108 H Blood Pressure [Left Arm] 138/69 Blood Pressure Mean 130 Blood Pressure Mean [Left Arm] 92 Pulse Oximetry 93 93 91 Oxygen Delivery Method Room Air Room Air Room Air Oxygen Flow Rate 03/30/19 04:45 03/30/19 04:47 03/30/19 05:26 Temperature Temperature Source Sepsis Recent Fever Within 48 Hours Sepsis New/Unexplained Change in Mental Status Sepsis Action Taken by Nursing Pulse Rate Pulse Rate [Apical] 77 72 Pulse Rhythm Pulse Rhythm [Apical] Regular Regular Respiratory Rate 18 18 Respiratory Effort / Characteristics Respiratory Depth Normal Normal Respiratory Pattern Blood Pressure Blood Pressure [Left Arm] 136/69 140/80 Blood Pressure Mean Blood Pressure Mean [Left Arm] 91 100 Pulse Oximetry 85 L 98 98 Oxygen Delivery Method Room Air Nasal Cannula Room Air Oxygen Flow Rate 3 Vital signs reviewed. General: Well-appearing 78 yo female, in no significant distress. HEENT: No scleral icterus, PERRLA, neck supple. Atraumatic. Cardiovascular: Regular rate and rhythm, no extra sounds. Pulmonary: Clear to auscultation bilaterally, normal work of breathing. Abdomen: Soft, nontender, distended abdomen with positive tympany, positive bowel sounds. Musculoskeletal: Atraumatic, no peripheral edema. Neurologic: Patient awake alert and oriented x 3. Skin: Warm, dry, no rash Course 0326: The patient was evaluated in room B02. A complete history and physical e xam was performed. Administered Medications Atorvastatin Calcium (Lipitor) 10 mg PO DAILY SONIDO Stop: 05/01/19 08:59 Last Admin: 04/01/19 09:41 Dose: 10 mg Documented by: [id number] Levothyroxine Sodium (Synthroid) 100 mcg PO DAILYBB SONIDO Stop: 05/01/19 06:29 Last Admin: 04/01/19 05:26 Dose: 100 mcg Documented by: [id number] Lisinopril (Zestril) 2.5 mg PO DAILY SONIDO Stop: 05/01/19 08:59 Last Admin: 04/01/19 09:43 Dose: 2.5 mg Documented by: [id number] Metoprolol Succinate (Toprol Xl) 50 mg PO DAILY SONIDO Stop: 05/01/19 08:59 Last Admin: 04/01/19 09:42 Dose: 50 mg Documented by: [id number] Senna/Docusate Sodium (Senokot S) 1 tab PO BID SONIDO Stop: 04/30/19 20:59 Last Admin: 04/01/19 09:42 Dose: 1 tab Documented by: [id number] Admin: 03/31/19 20:57 Dose: 1 tab Documented by: [id number] Warfarin Sodium (Coumadin) 2.5 mg PO DAILY@1600 SONIDO Stop: 04/30/19 15:59 Last Admin: 03/31/19 17:05 Dose: 2.5 mg Documented by: [id number] Discontinued Medications Bisacodyl (Dulcolax) 10 mg AL NOW STA Stop: 03/31/19 18:20 Last Admin: 03/31/19 18:54 Dose: 10 mg Documented by: [id number] Sodium Chloride (Nss 1000ml) 1,000 mls @ 125 mls/hr IV .Q8H SONIDO Stop: 04/29/19 03:29 Last Infusion: 03/30/19 18:00 Dose: 0 mls/hr Documented by: [id number] Infusion: 03/30/19 09:00 Dose: 0 mls/hr Documented by: [id number] Admin: 03/30/19 03:55 Dose: 125 mls/hr Documented by: [id number] Pantoprazole Sodium 80 mg/ (Dextrose) 120 mls @ 480 mls/hr IV NOW STA Stop: 03/30/19 03:49 Last Infusion: 03/30/19 04:39 Dose: 0 mls/hr Documented by: [id number] Admin: 03/30/19 03:56 Dose: 480 mls/hr Documented by: [id number] Potassium Chloride/Dextrose/Sod Cl (D5nss + 20meq Kcl) 20 meq in 1,000 mls @ 80 mls/hr IV .[id number] SONIDO Stop: 03/30/19 20:55 Last Infusion: 03/30/19 22:55 Dose: 0 mls/hr Documented by: [id number] Admin: 03/30/19 09:30 Dose: 80 mls/hr Documented by: [id number] Levothyroxine Sodium 50 mcg/ (Syringe) 2.5 mls @ 2 mls/min IV DAILY@0900 SONIDO Stop: 04/29/19 08:59 Last Admin: 03/31/19 09:18 Dose: 2 mls/min Documented by: [id number] Admin: 03/30/19 11:56 Dose: 2 mls/min Documented by: [id number] Sodium Chloride (Nss 1000ml) 1,000 mls @ 80 mls/hr IV .[id number] SONIDO Stop: 04/30/19 09:59 Last Infusion: 03/31/19 18:22 Dose: 0 mls/hr Documented by: [id number] Admin: 03/31/19 13:01 Dose: 80 mls/hr Documented by: [id number] Metoprolol Tartrate (Lopressor) 5 mg IV Q8H SONIDO Stop: 04/29/19 15:59 Last Admin: 03/31/19 09:19 Dose: 5 mg Documented by: [id number] Admin: 03/30/19 23:36 Dose: 5 mg Documented by: [id number] Admin: 03/30/19 17:44 Dose: 5 mg Documented by: [id number] Metoprolol Tartrate (Lopressor) 5 mg IV TODAY@0845 SONIDO Stop: 03/30/19 08:46 Last Admin: 03/30/19 11:56 Dose: 5 mg Documented by: [id number] Ondansetron HCl (Zofran) 4 mg IV ONE STA Stop: 03/30/19 03:28 Last Admin: 03/30/19 03:57 Dose: 4 mg Documented by: [id number] Medical Decision Making Differential Diagnosis Differential diagnosis includes: gastroenteritis, food borne illness, infections, appendicitis, diverticulitis, inflammatory bowel disease, obstruction, GI bleed, biliary pathology, as well as others were entertained. Medical Records Attestation: I reviewed the patient's medical records. Home Medications Current Medication List: was personally reviewed by me Laboratory Data Result diagrams: 03/31/19 05:42 04/01/19 05:27 Lab Results 03/30/19 03/30/19 03/30/19 Range/Units 03:35 03:35 03:35 WBC 13.68 H (4.8-10.8) K/uL RBC 4.98 (4.2-5.4) M/uL Hgb 16.5 H (12.0-16.0) g/dL POC Hgb (12.0-16.0) g/dl Hct 47.5 H (37-47) % POC Hct (37-47) % MCV 95.4 (80-100) fL MCH 33.1 (25-34) pg MCHC 34.7 (32-36) g/dL RDW Std Deviation 47.8 H (36.4-46.3) fL RDW Coeff of Elli 13.7 (11.5-14.5) % Plt Count 226 (130-400) K/uL MPV 9.1 (7.4-10.4) fL Immature Gran % (Auto) 0.3 % Neut % (Auto) 77.4 % Lymph % (Auto) 11.6 % Corson % (Auto) 9.0 % Eos % (Auto) 1.5 % Baso % (Auto) 0.2 % Immature Gran # (Auto) 0.04 H (0.00-0.02) K/uL Neut # (Auto) 10.59 H (1.4-6.5) K/uL Lymph # (Auto) 1.59 (1.2-3.4) K/uL Corson # (Auto) 1.23 H (0.11-0.59) K/uL Eos # (Auto) 0.20 (0-0.5) K/uL Baso # (Auto) 0.03 (0-0.2) K/uL PT 23.3 H (9.0-12.0) Seconds INR 2.4 H (0.9-1.1) APTT 35.9 H (21.0-31.0) Seconds PTT Ratio 1.3 POC Sodium (135-144) mEq/L Sodium 133 L (136-145) mmol/L POC Potassium (3.3-5.0) mEq/L Potassium 3.9 (3.5-5.1) mmol/L POC Chloride (101-112) mEq/L Chloride 96 L (98-107) mmol/L Carbon Dioxide 32 (21-32) mmol/L POC Total CO2 (24-31) mEq/l Anion Gap 5.0 (3-11) POC Anion Gap (16-25) mmol/L POC BUN (7-18) mg/dl BUN 14 (7-18) mg/dl Creatinine 0.72 (0.6-1.2) mg/dl POC Creatinine (0.6-1.3) mg/dl Est Cr Clr Drug Dosing 84.3 ml/min Est GFR ( Amer) 91.7 Est GFR (Non-Af Amer) 79.1 BUN/Creatinine Ratio 19.4 (10-20) Glucose 118 H (70-99) mg/dl POC Glucose (other) (70-99) mg/dl Calcium 9.3 (8.5-10.1) mg/dl POC Ioniz Calcium Polina (1.12-1.32) mmol/l Total Bilirubin 0.9 (0.2-1) mg/dl AST 19 (15-37) U/L ALT 20 (12-78) U/L Alkaline Phosphatase 121 H (45-117) U/L Total Protein 7.5 (6.4-8.2) gm/dl Albumin 3.6 (3.4-5.0) gm/dl Globulin 3.9 (2.5-4.0) gm/dl Albumin/Globulin Ratio 0.9 (0.9-2) Blood Type Antibody Screen 03/30/19 03/30/19 Range/Units 03:35 03:40 WBC (4.8-10.8) K/uL RBC (4.2-5.4) M/uL Hgb (12.0-16.0) g/dL POC Hgb 17.3 H (12.0-16.0) g/dl Hct (37-47) % POC Hct 51 H (37-47) % MCV (80-100) fL MCH (25-34) pg MCHC (32-36) g/dL RDW Std Deviation (36.4-46.3) fL RDW Coeff of Elli (11.5-14.5) % Plt Count (130-400) K/uL MPV (7.4-10.4) fL Immature Gran % (Auto) % Neut % (Auto) % Lymph % (Auto) % Corson % (Auto) % Eos % (Auto) % Baso % (Auto) % Immature Gran # (Auto) (0.00-0.02) K/uL Neut # (Auto) (1.4-6.5) K/uL Lymph # (Auto) (1.2-3.4) K/uL Corson # (Auto) (0.11-0.59) K/uL Eos # (Auto) (0-0.5) K/uL Baso # (Auto) (0-0.2) K/uL PT (9.0-12.0) Seconds INR (0.9-1.1) APTT (21.0-31.0) Seconds PTT Ratio POC Sodium 135 (135-144) mEq/L Sodium (136-145) mmol/L POC Potassium 4.1 (3.3-5.0) mEq/L Potassium (3.5-5.1) mmol/L POC Chloride 92 L (101-112) mEq/L Chloride (98-107) mmol/L Carbon Dioxide (21-32) mmol/L POC Total CO2 28 (24-31) mEq/l Anion Gap (3-11) POC Anion Gap 19.0 (16-25) mmol/L POC BUN 15 (7-18) mg/dl BUN (7-18) mg/dl Creatinine (0.6-1.2) mg/dl POC Creatinine 0.7 (0.6-1.3) mg/dl Est Cr Clr Drug Dosing ml/min Est GFR ( Amer) Est GFR (Non-Af Amer) BUN/Creatinine Ratio (10-20) Glucose (70-99) mg/dl POC Glucose (other) 124 H (70-99) mg/dl Calcium (8.5-10.1) mg/dl POC Ioniz Calcium Polina 1.16 (1.12-1.32) mmol/l Total Bilirubin (0.2-1) mg/dl AST (15-37) U/L ALT (12-78) U/L Alkaline Phosphatase (45-117) U/L Total Protein (6.4-8.2) gm/dl Albumin (3.4-5.0) gm/dl Globulin (2.5-4.0) gm/dl Albumin/Globulin Ratio (0.9-2) Blood Type O Positive Antibody Screen NEGATIVE Imaging Data Attestation: I personally reviewed and interpreted this imaging study as follows: My Impression: CXR to my interpretation reveals no evidence of focal consolidation or failure. Radiologist's Impression: CT abd/Pelvis per [facility] reveals partial SBO ECG Data Attestation: I personally reviewed and interpreted this ECG as follows: Indication: vomiting Rate (beats per minute): 85 Rhythm: sinus rhythm Findings: + other (previous inferior and lateral infarction, LVH, ), + 1st degree AV block and + left axis deviation; no acute ischemic change and no ectopy Blood Pressure Blood Pressure Findings: Elevated blood pressure Blood Pressure Disposition: further management by hospitalist MDM Narrative This pt was evaluated and appeared to be in no distress. IV access was obtained and lab work was drawn. Pt was placed on the hospital monitor. IVF were initiated and pt was given IV zofran for nausea. H/H is stable when compared to previous. Pt has had no diarrhea/melana. INR is 2.4. IV protonix was given. CXR is clear. Abd CT per [facility] reveals a partial SBO. Pt states she has a h/o similar. Pt case was d/w Dr Alfredo of [facility] [place] service for further management. Impression & Plan Partial small bowel obstruction Discharge Plan Visit Data *Final* Discharge Date/Time: 03/30/19 07:17 Chief Complaint: GI Bleed Stated Complaint: GI BLEED ED Provider: Hanna Donohue Discharge Problem: Partial small bowel obstruction Patient Disposition: Admitted As Inpatient Condition: Good Discharge Instructions Interventions: ED Discharge Assessment Last Done: 03/30/19 07:17 The scribe's documentation has been prepared under my direction and personally reviewed by me in its entirety. I confirm that the note above accurately reflects all work, treatment, procedures, and medical decision making performed by me.
[2019-03-30 03:43] LABS: Basophils # (auto) 0.03 K/uL (0-0.2); Basophils % (auto) 0.2 %; Eosinophils % (auto) 1.5 %; Hematocrit (blood only) 47.5 % (37-47); Hemoglobin 16.5 g/dL (12.0-16.0); Immature Granulocytes # (auto) 0.04 K/uL (0.00-0.02); Immature Granulocytes % (auto) 0.3 %; Lymphocytes # (auto) 1.59 K/uL (1.2-3.4); Lymphocytes % (auto) 11.6 %; Mean Corpuscular Hgb Conc 34.7 g/dL (32-36); Mean Corpuscular Volume 95.4 fL (80-100); Mean Platelet Volume 9.1 fL (7.4-10.4); Monocytes # (auto) 1.23 K/uL (0.11-0.59); Neutrophils # (auto) 10.59 K/uL (1.4-6.5); Neutrophils % (auto) 77.4 %; Platelet Count 226 K/uL (130-400); RDW Coefficient of Variation 13.7 % (11.5-14.5); RDW Standard Deviation 47.8 fL (36.4-46.3); Red Blood Count 4.98 M/uL (4.2-5.4); White Blood Count 13.68 K/uL (4.8-10.8)
[2019-03-30 03:55] LABS: INR 2.4 (0.9-1.1); Partial Thromboplastin Ratio 1.3; Partial Thromboplastin Time 35.9 Seconds (21.0-31.0); Prothrombin Time 23.3 Seconds (9.0-12.0)
[2019-03-30 03:59] LABS: Albumin Level 3.6 gm/dl (3.4-5.0); BUN Creatinine Ratio 19.4 (10-20); Calcium 9.3 mg/dl (8.5-10.1); Creatinine Clr Calc Pharmacy 84.3 ml/min; Est GFR (African American) 91.7; Est GFR (Non-African American) 79.1; Potassium 3.9 mmol/L (3.5-5.1)
[2019-03-30 04:02] LABS: Albumin Globulin Ratio 0.9 (0.9-2); Bilirubin,Total 0.9 mg/dl (0.2-1); Globulin 3.9 gm/dl (2.5-4.0); Total Protein 7.5 gm/dl (6.4-8.2)
[2019-03-30 04:02] LABS: iSTAT Creatinine 0.7 mg/dl (0.6-1.3); iSTAT Hemoglobin 17.3 g/dl (12.0-16.0); iSTAT Ionized Calcium 1.16 mmol/l (1.12-1.32); iSTAT Potassium 4.1 mEq/L (3.3-5.0)
--- NOTE | 2019-03-30 05:50 | History & Physical Report ---
Date of Service March 30, 2019 Assessment & Plan (1) SBO (small bowel obstruction): 78 y/o F Hx HTN, HLD, PAF, CREST, hypothyroidism. She had spaghetti and meatballs with delicious Ragu sauce and began vomiting later in the evening. The vomit was red in color and she was concerned that she might be having some hematemesis. It was more likely that the color was due to the aforementioned Ragu sauce however. She denies any abdominal pain but does report distention and an unusually firm abdomen. A CT of the abdomen was obtained in the ER and appears to show a partial SBO. Interestingly, her states that he looked up the Ragu sauce on the [employer] website and noted that there had been a recall for pieces of plastic found in some containers. 1) Early or partial SBO - NPO, IVF, antiemetics. Hematemesis is not likely, however, she does take Coumadin so that any emesis should be tested for blood. If she does not improve, consider an NG and a surgery consult. 2) HTN - Can resume Lisinopril, metoprolol as tolerated or an IV sub can be provided in the interim. 3) HLD - resume statin when tolerating PO 4) PAF - cont Metoprolol, Coumadin 5) CREST - not currently treated - she needs a referral to a high worker Full code - Coumadin prophylaxis Total time for this admit including review of labs, meds, imaging, records - discussion with pt and ER attending - 38 min Present on Admission?: Yes History of Present Illness Chief Complaint: GI bleed Primary Care Provider: Rayray Villalta MD 78 y/o F Hx HTN, HLD, PAF, CREST, hypothyroidism. She had spaghetti and meatballs with delicious Ragu sauce and began vomiting later in the evening. The vomit was red in color and she was concerned that she might be having some hematemesis. It was more likely that the color was due to the aforementioned Ragu sauce however. She denies any abdominal pain but does report distention a nd an unusually firm abdomen. A CT of the abdomen was obtained in the ER and appears to show a partial SBO. Interestingly, her states that he looked up the Ragu sauce on the [employer] website and noted that there had been a recall for pieces of plastic found in some containers. PMH: 1) HTN 2) HLD 3) Paroxysmal AF 4) Hypothyroidism 5) History of CREST syndrome 6) Endometrial CA 7) Grade I diastolic dysfunction on echo 2016 8) Obese 9) CREST - not currently being treated. She does state that she was taking steroids in place of Meloxicam by direction of a high worker but had intolerable joint pain. She also reports recent onset of dysphagia or a feeling of fullness in her throat which may be related. Surgical: 1) Hysterectomy 2) BL TKR 2015,2016 3) Lysis of adhesions Social: Does not smoke Drinks wine occasionally Family: Noncontributory Allergies Allergy/AdvReac Type Severity Reaction Status Date / Time Penicillins Allergy Intermediate RASH AND Verified 03/30/19 04:39 ITCHING ON TORSO. FRAGRANCE AdvReac Sneezing Uncoded 03/30/19 04:39 Home Medications Home Medications Medication Instructions Recorded Confirmed Type atorvastatin 10 mg PO DAILY 10/28/18 03/30/19 History levothyroxine 100 mg PO DAILY 10/28/18 03/30/19 History lisinopril 2.5 mg PO DAILY 10/28/18 03/30/19 History meloxicam 7.5 mg PO DAILY 10/28/18 03/30/19 History metoprolol succinate 50 mg PO DAILY 10/28/18 03/30/19 History warfarin 2.5 mg PO DAILY 10/28/18 03/30/19 History Past Med/Surg History Medical History Endometrial cancer Surgical History S/P partial hysterectomy Family History Other Family history non-contributory Social History Preferred Language: Zambian Feels Safe at Home: Yes Smoking Status: Never smoker Review of Systems Review of Systems: Gen: Denies fevers, night sweats, rigors, fatigue, malaise, weight loss/gain ENT: Denies congestion, throat pain, hearing loss - dyphagia reported due to CREST Eyes: Denies acute visual changes CV: Denies CP, palpitations Pulmonary: Denies SOB, cough, wheezing GI: Nausea, vomiting, abdominal distention Neuro: Denies acute or unilateral weakness, acute gait impairment, headache or acute visual changes Musculoskeletal: Denies acute joint pain, inflammation Endocrine: Denies polydipsia, polyuria Skin: Denies acute rashes or ulcers Physical Exam Physical Exam: General: AAO x 3, no distress ENT: No erythema or exudates, no thrush Eyes: JULIAN, EOMI Head and neck: Normocephalic, atraumatic, No JVD, neck is supple. Chest/heart: Nontender, S1,2, RRR, no murmurs, no gallops Lungs: CTAB, no wheezing or crackles Abdomen: Distended, nontender, hypoactive Neuro: AAO x 3, speech is clear, no unilateral weakness or loss of sensation, coordination intact Musculoskeletal: No joint inflammation, muscle tenderness, FROM Skin: No acute rashes or ulcers Extremities: No clubbing, cyanosis, edema Results & Data Vital Signs (Past 12 Hours) Vital Signs Temp Pulse Pulse Resp BP BP Pulse Ox 03/30/19 05:26 72 18 140/80 98 03/30/19 04:47 77 18 136/69 98 03/30/19 04:45 85 L 03/30/19 03:59 74 18 138/69 91 03/30/19 03:43 97.7 F 76 18 176/108 H 93 03/30/19 03:42 76 93 PG Care Time/CCT Total # of Minutes Spent Total Time Spent with Patient: Total time spent is greater than 50% in coordination of care (as documented) at patient's floor/unit and/or counseling patient:
--- NOTE | 2019-03-30 06:28 | XRay Report ---
XR chest 1V portable HISTORY: 78 years-old Female vomiting acute vomiting COMPARISON: CT abdomen and pelvis of same day, chest radiograph 05/11/2016 TECHNIQUE: Portable AP view of the chest. FINDINGS: Cardiac silhouette is enlarged, unchanged. Calcification of the thoracic aortic arch. Mild chronic in terstitial coarsening. No pneumothorax, pleural effusion, overt pulmonary edema or focal airspace con solidation. Degenerative changes of the shoulders and spine. IMPRESSION: Cardiomegaly without acute process. The above report was generated using voice recognition software. It may contain grammatical, syntax o r spelling errors. Electronically signed by: Cuco Osman M.D. 03/30/2019 6:27 AM
--- NOTE | 2019-03-30 08:09 | CT Scan Report ---
CT abd pelvis wo con CLINICAL HISTORY: 78 years-old Female presenting with SBO. TECHNIQUE: Multidetector CT of the abdomen and pelvis was performed without the use of intravenous co ntrast. IV contrast: None. One or more dose lowering techniques were used consistent with the princip les of CHRISTIANO (as low as reasonably achievable), including automatic exposure control, mA or kV adjust ment to individual patient size, and/or use of iterative reconstruction. COMPARISON: 10/28/2018. CT DOSE (mGy.cm): The estimated cumulative dose is 1614.73 mGy.cm. FINDINGS: Supervisor Inspection Department topogram: Unremarkable. Lung bases: Normal heart size. Coronary artery calcification. No pericardial or pleural effusion. No focal infiltrate or nodule at the lung bases. Liver: Normal morphology. Normal density. Biliary: No gross biliary ductal dilatation allowing for noncontrast technique. Normal gallbladder. Pancreas: Mild parenchymal atrophy. Spleen: Normal noncontrast appearance. Adrenal glands: Normal noncontrast appearance. Kidneys and ureters: Normal noncontrast appearance. No nephrolithiasis. No hydronephrosis. Normal ure ters. Bladder: Incompletely evaluated secondary to underdistention. Pelvic organs: Uterus surgically absent. Bowel: Diverticulosis of the proximal to mid sigmoid colon without wall thickening or pericolonic inf lammatory change. Moderate stool burden throughout normal caliber colon. The appendix is normal area no bowel obstruction. Fluid noted throughout the nondistended small bowel and stomach. No significant bowel wall thickening evident. No perienteric inflammatory change. Peritoneal cavity: No free fluid or intraperitoneal gas. Lymph nodes: No gross lymphadenopathy allowing for noncontrast technique. Vasculature: Atherosclerosis of the normal caliber abdominal aorta. IVC patent. Abdominal wall: Diastasis of the rectus abdominis. Prostatic mesh in place in the infraumbilical and periumbilical abdominal wall. There may be small marginal recurrent herniations. No evidence of entra pped or stimulated bowel. No inflammatory change or fluid associated with the prosthetic mesh. Musculoskeletal: Degenerative changes of the spine. IMPRESSION: 1. Allowing for noncontrast technique, no acute intra-abdominal pathology. 2. Fluid throughout the stomach and small bowel, nonspecific though this may suggest a mild gastroen teritis. No bowel obstruction. 3. Diverticulosis coli. No evidence of vasculitis. 4. Prostatic mesh repair of the ventral abdominal wall without evidence of a recurrent significant h erniation. Electronically signed by: Armando Fofana M.D. 03/30/2019 8:07 AM
[2019-03-30] MEDS ORDERED: MoRPHine SULFATE 2 MG/ML CARP IV PRN (08:26)
[2019-03-30] MEDS ORDERED: ONDANSETRON INJ 2 MG/ML 2 ML VIAL IV PRN (08:26)
[2019-03-30] MEDS ORDERED: D5NSS + 20MEQ KCL 20 MEQ/1,000 ML BAG IV SCH (08:26)
[2019-03-30] MEDS ORDERED: METOPROLOL TARTRATE 1 MG/ML VIAL IV SCH (08:45)
[2019-03-30] MEDS: LEVOTHYROXINE SODIUM 50 MCG in SYRINGE 0 ML IV SCH (11:56)
--- NOTE | 2019-03-30 13:55 | Hospitalist Progress Note ---
Date of Service March 30, 2019 Assessment & Plan (1) SBO (small bowel obstruction): - Presented with N/V -- concern for hematemesis (related to PO intake vs. bleed -- does take Mobic at home), fecal occult blood is pending. - Early small bowel obstruction was noted on CT A/P. - Strict NPO; converted home meds to PO if possible. - Continue IV fluids at 80 cc/hr. - Consider general surgery or GI consult if necessary; at this point, patient has not required an NG tube. (2) HTN (hypertension): - Converted home Metoprolol to 5 mg IV q8hr. - Holding home Lisinopril while NPO. - BP has been well controlled, is elevated at times. (3) HLD (hyperlipidemia): - Holding home statin while NPO. (4) Paroxysmal A-fib: - Converted home Metoprolol to IV while NPO. - Holding home Coumadin while NPO -- INR was therapeutic today. - Will hold pharmacologic treatment for possible procedure; monitor INR daily. (5) Hypothyroidism: - Continue Synthroid - converted to IV. - Most recent TSH was 1.1 in December 2018. (6) CREST (calcinosis, Raynaud's phenomenon, esophageal dysfunction, sclerodactyly, telangiectasia): - Not currently receiving treatment. (7) DVT prophylaxis: - SCDs; Holding home Coumadin for possible procedure. Dispo: PCU/telemetry for treatment of partial small bowel obstruction. Supervising Physician Co-Signing Physician Notes Attending Attestation - Chart reviewed, care plan d/w JESÚS May. I agree w/ the [place] components of her documentation. pSBO vs gastroenteritis - clinically improving; no vomiting. Labs acceptable (was hemoconcentrated at presentation). Cont IV fluids; cont conservative measures. Low threshold for gen surg consult if any worsening or failure to improve. Harley Resendez MD Subjective Pt. was doing well this morning -- did not have any further episodes of nausea/vomiting since admission. Has not had any BMs yet. Is currently strict NPO, complains of being thirsty. Review of Systems Review of Systems: All systems reviewed & are unremarkable except as noted in HPI & below Constitutional: no fever, no chills, no fatigue, no weakness and no anorexia Respiratory: no cough, no dyspnea and no dyspnea on exertion Cardiovascular: no chest pain, no palpitations and no edema Gastrointestinal: no abdominal pain, no nausea, no vomiting, no constipation and no diarrhea/loose stools Genitourinary: no difficulty urinating Musculoskeletal: no back pain and no joint pain Allergy / Immunological: no rash Physical Exam Physical Exam: General: Resting comfortably in no apparent distress HEENT: NC/AT; PERRLA with EOMI; [place] conjunctiva, MMM. Dry oral mucosa. Neck: Supple and nontender Cardiac: RRR Lungs: CTA bilaterally Abdomen: Slightly distended; Bowel normoactive X 4; Nontender to palpation Extremities: Warm. No edema present Neuro: No focal weakness Skin: No rash Results & Data Vital Signs (Past 12 Hours) Vital Signs Temp Pulse Pulse Resp BP BP Pulse Ox 03/30/19 12:12 37 C 72 19 92 03/30/19 11:56 78 128/68 03/30/19 07:17 78 16 148/70 H 98 03/30/19 06:28 72 16 165/111 H 98 03/30/19 05:26 72 18 140/80 98 03/30/19 04:47 77 18 136/69 98 03/30/19 04:45 85 L 03/30/19 03:59 74 18 138/69 91 03/30/19 03:43 36.5 C 76 18 176/108 H 93 03/30/19 03:42 76 93 Laboratory Results 03/30/19 03/30/19 03/30/19 Range/Units 11:01 03:40 03:35 WBC (4.8-10.8) K/uL RBC (4.2-5.4) M/uL Hgb 14.6 (12.0-16.0) g/dL POC Hgb 17.3 H (12.0-16.0) g/dl Hct (37-47) % POC Hct 51 H (37-47) % MCV (80-100) fL MCH (25-34) pg MCHC (32-36) g/dL RDW Std Deviation (36.4-46.3) fL RDW Coeff of Elli (11.5-14.5) % Plt Count (130-400) K/uL MPV (7.4-10.4) fL Immature Gran % (Auto) % Neut % (Auto) % Lymph % (Auto) % Emmons % (Auto) % Eos % (Auto) % Baso % (Auto) % Immature Gran # (Auto) (0.00-0.02) K/uL Neut # (Auto) (1.4-6.5) K/uL Lymph # (Auto) (1.2-3.4) K/uL Emmons # (Auto) (0.11-0.59) K/uL Eos # (Auto) (0-0.5) K/uL Baso # (Auto) (0-0.2) K/uL PT (9.0-12.0) Seconds INR (0.9-1.1) APTT (21.0-31.0) Seconds PTT Ratio POC Sodium 135 (135-144) mEq/L Sodium (136-145) mmol/L POC Potassium 4.1 (3.3-5.0) mEq/L Potassium (3.5-5.1) mmol/L POC Chloride 92 L (101-112) mEq/L Chloride (98-107) mmol/L Carbon Dioxide (21-32) mmol/L POC Total CO2 28 (24-31) mEq/l Anion Gap (3-11) POC Anion Gap 19.0 (16-25) mmol/L POC BUN 15 (7-18) mg/dl BUN (7-18) mg/dl Creatinine (0.6-1.2) mg/dl POC Creatinine 0.7 (0.6-1.3) mg/dl Est Cr Clr Drug Dosing ml/min Est GFR ( Amer) Est GFR (Non-Af Amer) BUN/Creatinine Ratio (10-20) Glucose (70-99) mg/dl POC Glucose (other) 124 H (70-99) mg/dl Calcium (8.5-10.1) mg/dl POC Ioniz Calcium Polina 1.16 (1.12-1.32) mmol/l Total Bilirubin (0.2-1) mg/dl AST (15-37) U/L ALT (12-78) U/L Alkaline Phosphatase (45-117) U/L Total Protein (6.4-8.2) gm/dl Albumin (3.4-5.0) gm/dl Globulin (2.5-4.0) gm/dl Albumin/Globulin Ratio (0.9-2) Blood Type O Positive Antibody Screen NEGATIVE 03/30/19 03/30/19 03/30/19 Range/Units 03:35 03:35 03:35 WBC 13.68 H (4.8-10.8) K/uL RBC 4.98 (4.2-5.4) M/uL Hgb 16.5 H (12.0-16.0) g/dL POC Hgb (12.0-16.0) g/dl Hct 47.5 H (37-47) % POC Hct (37-47) % MCV 95.4 (80-100) fL MCH 33.1 (25-34) pg MCHC 34.7 (32-36) g/dL RDW Std Deviation 47.8 H (36.4-46.3) fL RDW Coeff of Elli 13.7 (11.5-14.5) % Plt Count 226 (130-400) K/uL MPV 9.1 (7.4-10.4) fL Immature Gran % (Auto) 0.3 % Neut % (Auto) 77.4 % Lymph % (Auto) 11.6 % Emmons % (Auto) 9.0 % Eos % (Auto) 1.5 % Baso % (Auto) 0.2 % Immature Gran # (Auto) 0.04 H (0.00-0.02) K/uL Neut # (Auto) 10.59 H (1.4-6.5) K/uL Lymph # (Auto) 1.59 (1.2-3.4) K/uL Emmons # (Auto) 1.23 H (0.11-0.59) K/uL Eos # (Auto) 0.20 (0-0.5) K/uL Baso # (Auto) 0.03 (0-0.2) K/uL PT 23.3 H (9.0-12.0) Seconds INR 2.4 H (0.9-1.1) APTT 35.9 H (21.0-31.0) Seconds PTT Ratio 1.3 POC Sodium (135-144) mEq/L Sodium 133 L (136-145) mmol/L POC Potassium (3.3-5.0) mEq/L Potassium 3.9 (3.5-5.1) mmol/L POC Chloride (101-112) mEq/L Chloride 96 L (98-107) mmol/L Carbon Dioxide 32 (21-32) mmol/L POC Total CO2 (24-31) mEq/l Anion Gap 5.0 (3-11) POC Anion Gap (16-25) mmol/L POC BUN (7-18) mg/dl BUN 14 (7-18) mg/dl Creatinine 0.72 (0.6-1.2) mg/dl POC Creatinine (0.6-1.3) mg/dl Est Cr Clr Drug Dosing 84.3 ml/min Est GFR ( Amer) 91.7 Est GFR (Non-Af Amer) 79.1 BUN/Creatinine Ratio 19.4 (10-20) Glucose 118 H (70-99) mg/dl POC Glucose (other) (70-99) mg/dl Calcium 9.3 (8.5-10.1) mg/dl POC Ioniz Calcium Polina (1.12-1.32) mmol/l Total Bilirubin 0.9 (0.2-1) mg/dl AST 19 (15-37) U/L ALT 20 (12-78) U/L Alkaline Phosphatase 121 H (45-117) U/L Total Protein 7.5 (6.4-8.2) gm/dl Albumin 3.6 (3.4-5.0) gm/dl Globulin 3.9 (2.5-4.0) gm/dl Albumin/Globulin Ratio 0.9 (0.9-2) Blood Type Antibody Screen PG Care Time/CCT Total # of Minutes Spent Total Time Spent with Patient: Total time spent is greater than 50% in coordination of care (as documented) at patient's floor/unit and/or counseling patient:
[2019-03-30] MEDS: METOPROLOL TARTRATE 1 MG/ML VIAL IV SCH ×2 (17:44→23:36)
[2019-03-31 06:06] LABS: Basophils # (auto) 0.01 K/uL (0-0.2); Basophils % (auto) 0.1 %; Eosinophils # (auto) 0.27 K/uL (0-0.5); Eosinophils % (auto) 3.7 %; Hematocrit (blood only) 42.6 % (37-47); Immature Granulocytes # (auto) 0.02 K/uL (0.00-0.02); Immature Granulocytes % (auto) 0.3 %; Lymphocytes # (auto) 1.51 K/uL (1.2-3.4); Lymphocytes % (auto) 20.8 %; Mean Corpuscular Hgb Conc 32.9 g/dL (32-36); Mean Corpuscular Volume 97.9 fL (80-100); Mean Platelet Volume 9.2 fL (7.4-10.4); Monocytes # (auto) 0.82 K/uL (0.11-0.59); Monocytes % (auto) 11.3 %; Neutrophils # (auto) 4.62 K/uL (1.4-6.5); Neutrophils % (auto) 63.8 %; Platelet Count 192 K/uL (130-400); RDW Coefficient of Variation 13.9 % (11.5-14.5); RDW Standard Deviation 49.9 fL (36.4-46.3); Red Blood Count 4.35 M/uL (4.2-5.4); White Blood Count 7.25 K/uL (4.8-10.8)
[2019-03-31 06:43] LABS: BUN Creatinine Ratio 17.9 (10-20); Calcium 8.2 mg/dl (8.5-10.1); Creatinine Clr Calc Pharmacy 109.6 ml/min; Est GFR (African American) 102.1; Est GFR (Non-African American) 88.1; Potassium 4.3 mmol/L (3.5-5.1)
[2019-03-31 06:46] LABS: INR 2.3 (0.9-1.1); Prothrombin Time 22.1 Seconds (9.0-12.0)
[2019-03-31] MEDS: LEVOTHYROXINE SODIUM 50 MCG in SYRINGE 0 ML IV SCH (09:18)
[2019-03-31] MEDS: METOPROLOL TARTRATE 1 MG/ML VIAL IV SCH (09:19)
[2019-03-31] MEDS ORDERED: SODIUM CHLORIDE 0.9% 1000ML 1,000 ML IV SCH (10:00)
--- NOTE | 2019-03-31 11:56 | Hospitalist Progress Note ---
Date of Service March 31, 2019 Assessment & Plan (1) SBO (small bowel obstruction): - Presented with N/V -- concern for hematemesis, fecal occult blood is pending but pt. has not had a BM. - No further episodes of nausea/vomiting; denies abd pain, is passing gas but has not had a BM. - Possible early small bowel obstruction was noted on CT A/P. - Advance to sips and ice chips; will resume home PO meds. - Continue IV fluids at 80 cc/hr. - Consider general surgery or GI consult if necessary. (2) HTN (hypertension): - Converted home Metoprolol to 5 mg IV q8hr. - Holding home Lisinopril & Metoprolol, will resume on 04/01. (3) HLD (hyperlipidemia): - Holding home statin, will resume on 04/01. (4) Paroxysmal A-fib: - Converted home Metoprolol to IV; resume PO beta britney on 04/01. - Held home Coumadin at admission while NPO -- will resume this evening at 2.5 mg daily. - Monitor INR levels daily - therapeutic this morning. (5) Hypothyroidism: - Continue Synthroid - converted to IV. - Most recent TSH was 1.1 in December 2018. (6) CREST (calcinosis, Raynaud's phenomenon, esophageal dysfunction, sclerodactyly, telangiectasia): - Not currently receiving treatment. (7) DVT prophylaxis: - SCDs; Resume Coumadin this evening. Dispo: Inpt for treatment of small bowel obstruction. Supervising Physician Co-Signing Physician Notes Attending Attestation - Chart reviewed, care plan d/w JESÚS May. I agree w/ the [place] components of her documentation. pSBO vs gastroenteritis - clinically improving/resolving; +flatus, no nausea/emesis. Repeat x-rays today - no evidence of SBO. Considerable distal stool. Dulcolax suppos x1. Allow clear liquid diet. Cont IV fluids. Labs am. Harley Resendez MD Subjective Pt. is doing well overall. She is passing gas, has not had a BM. Denies nausea/vomiting, chest pain, SOB, LE edema. Complains of a dry mouth -- will start sips and chips. Review of Systems Review of Systems: All systems reviewed & are unremarkable except as noted in HPI & below Constitutional: no fever, no chills, no fatigue, no weakness and no anorexia Respiratory: no cough, no dyspnea, no dyspnea on exertion and no wheezing Cardiovascular: no chest pain, no palpitations, no lightheadedness and no edema Gastrointestinal: + constipation; no abdominal pain, no nausea, no vomiting and no diarrhea/loose stools Genitourinary: no difficulty urinating Musculoskeletal: no back pain and no joint pain Integumentary: no non-healing lesions Physical Exam Physical Exam: General: Resting comfortably in no apparent distress HEENT: NC/AT; PERRLA with EOMI; [place] conjunctiva, MMM. Dry oral mucosa. Neck: Supple and nontender Cardiac: RRR Lungs: CTA bilaterally Abdomen: No distention noted; Bowel hypoactive X 4; Nontender to palpation Extremities: Warm. No edema present Neuro: No focal weakness Skin: No rash Results & Data Vital Signs (Past 12 Hours) Vital Signs Temp Pulse Pulse Pulse Resp BP BP 03/31/19 11:39 37.2 C 79 20 138/64 03/31/19 09:19 84 169/74 H 03/31/19 07:23 37.0 C 84 20 132/64 03/31/19 03:34 36.9 C 86 20 98/76 L 03/31/19 00:14 82 Pulse Ox 03/31/19 11:39 91 03/31/19 09:19 03/31/19 07:23 91 03/31/19 03:34 93 03/31/19 00:14 Laboratory Results 03/31/19 03/31/19 03/31/19 Range/Units 05:42 05:42 05:42 WBC 7.25 (4.8-10.8) K/uL RBC 4.35 (4.2-5.4) M/uL Hgb 14.0 (12.0-16.0) g/dL Hct 42.6 (37-47) % MCV 97.9 (80-100) fL MCH 32.2 (25-34) pg MCHC 32.9 (32-36) g/dL RDW Std Deviation 49.9 H (36.4-46.3) fL RDW Coeff of Elli 13.9 (11.5-14.5) % Plt Count 192 (130-400) K/uL MPV 9.2 (7.4-10.4) fL Immature Gran % (Auto) 0.3 % Neut % (Auto) 63.8 % Lymph % (Auto) 20.8 % Robertson % (Auto) 11.3 % Eos % (Auto) 3.7 % Baso % (Auto) 0.1 % Immature Gran # (Auto) 0.02 (0.00-0.02) K/uL Neut # (Auto) 4.62 (1.4-6.5) K/uL Lymph # (Auto) 1.51 (1.2-3.4) K/uL Robertson # (Auto) 0.82 H (0.11-0.59) K/uL Eos # (Auto) 0.27 (0-0.5) K/uL Baso # (Auto) 0.01 (0-0.2) K/uL PT 22.1 H (9.0-12.0) Seconds INR 2.3 H (0.9-1.1) Sodium 137 (136-145) mmol/L Potassium 4.3 (3.5-5.1) mmol/L Chloride 103 (98-107) mmol/L Carbon Dioxide 32 (21-32) mmol/L Anion Gap 2.0 L (3-11) BUN 10 (7-18) mg/dl Creatinine 0.56 L (0.6-1.2) mg/dl Est Cr Clr Drug Dosing 109.6 ml/min Est GFR ( Amer) 102.1 Est GFR (Non-Af Amer) 88.1 BUN/Creatinine Ratio 17.9 (10-20) Glucose 98 (70-99) mg/dl Calcium 8.2 L (8.5-10.1) mg/dl Magnesium 2.0 (1.8-2.4) mg/dl PG Care Time/CCT Total # of Minutes Spent Total Time Spent with Patient: Total time spent is greater than 50% in coordination of care (as documented) at patient's floor/unit and/or counseling patient:
[2019-03-31] MEDS ORDERED: WARFARIN SOD 2.5 MG TAB PO SCH (16:00)
--- NOTE | 2019-03-31 18:11 | XRay Report ---
[facility] CLINICAL HISTORY: Rule out obstruction COMPARISON STUDY: CT of the abdomen and pelvis March 30, 2019. FINDINGS: There is no radiographic evidence for a bowel obstruction. A moderate amount stool within t he colon and rectum is noted. Paucity of small bowel gas is noted. IMPRESSION: No radiographic evidence for a bowel obstruction although fluid-filled small bowel loops may be occult by radiography. Electronically signed by: Kwadwo Nogueira M.D. 03/31/2019 6:10 PM
[2019-03-31] MEDS ORDERED: BISACODYL 10 MG SUPP PR STA (18:19)
[2019-03-31] MEDS ORDERED: MICONAZOLE NITRATE POWDER 43 GM EXT PRN (19:16)
[2019-03-31] MEDS: DOCUSATE SODIUM/SENNA 50/8.6MG TAB PO SCH (20:57)
[2019-04-01 06:01] LABS: INR 1.9 (0.9-1.1); Prothrombin Time 18.5 Seconds (9.0-12.0)
[2019-04-01 06:16] LABS: Est GFR (African American) 97.7; Est GFR (Non-African American) 84.3; Potassium 3.9 mmol/L (3.5-5.1)
[2019-04-01 06:17] LABS: BUN Creatinine Ratio 13.5 (10-20); Calcium 8.6 mg/dl (8.5-10.1); Creatinine Clr Calc Pharmacy 95.9 ml/min
[2019-04-01] MEDS ORDERED: LEVOTHYROXINE SODIUM 100 MCG TABLET PO SCH (06:30)
[2019-04-01] MEDS ORDERED: METOPROLOL SUCC 50MG EXT REL TAB PO SCH (09:00)
[2019-04-01] MEDS ORDERED: LISINOPRIL 2.5 MG TAB PO SCH (09:00)
[2019-04-01] MEDS ORDERED: ATORVASTATIN 10 MG TAB PO SCH (09:00)
[2019-04-01] MEDS: DOCUSATE SODIUM/SENNA 50/8.6MG TAB PO SCH (09:42)
[2019-04-01] MEDS ORDERED: MELOXICAM 7.5 MG TAB PO SCH (10:30)
--- NOTE | 2019-04-01 13:40 | Discharge Summary ---
Date of Service April 01, 2019 Admission HPI Per Admitting Provider 78 y/o F Hx HTN, HLD, PAF, CREST, hypothyroidism. She had spaghetti and meatballs with delicious Ragu sauce and began vomiting later in the evening. The vomit was red in color and she was concerned that she might be having some hematemesis. It was more likely that the color was due to the aforementioned Ragu sauce however. She denies any abdominal pain but does report distention and an unusually firm abdomen. A CT of the abdomen was obtained in the ER and appears to show a partial SBO. Interestingly, her states that he looked up the Ragu sauce on the [employer] website and noted that there had been a recall for pieces of plastic found in some containers. Admission Exam Per Admitting Provider General: AAO x 3, no distress ENT: No erythema or exudates, no thrush Eyes: JULIAN, EOMI Head and neck: Normocephalic, atraumatic, No JVD, neck is supple. Chest/heart: Nontender, S1,2, RRR, no murmurs, no gallops Lungs: CTAB, no wheezing or crackles Abdomen: Distended, nontender, hypoactive Neuro: AAO x 3, speech is clear, no unilateral weakness or loss of sensation, coordination intact Musculoskeletal: No joint inflammation, muscle tenderness, FROM Skin: No acute rashes or ulcers Extremities: No clubbing, cyanosis, edema Principal Diagnosis Partial Small Bowel Obstruction Discharge Exam General: Resting comfortably in no apparent distress HEENT: NC/AT; PERRLA with EOMI; [place] conjunctiva, MMM. Neck: Supple and nontender Cardiac: RRR Lungs: CTA bilaterally Abdomen: Bowel normoactive X 4; Nontender to palpation Extremities: Warm. No edema present Neuro: No focal weakness Skin: No rash Discharge Data Allergies Allergy/AdvReac Type Severity Reaction Status Date / Time Penicillins Allergy Intermediate RASH AND Verified 03/30/19 04:39 ITCHING ON TORSO. FRAGRANCE AdvReac Sneezing Uncoded 03/30/19 04:39 Consultations 03/30/19 06:10 ED Decision to Admit Stat Ordered Studies 03/30/19 03:29 CT abd pelvis wo con Urgent Hospital Course (1) SBO (small bowel obstruction): Presented with N/V -- concern for hematemesis, no further episodes. No further episodes of nausea/vomiting; had multiple BMs after Dulcolax suppository. Possible early small bowel obstruction was noted on CT A/P. Follow up [facility] on 03/31 showed moderate stool, no obstruction. Was tolerating regular diet prior to discharge. (2) HTN (hypertension): Received Metoprolol IV while NPO -- resumed PO meds on 04/01. (3) HLD (hyperlipidemia): Continued home statin. (4) Paroxysmal A-fib: Held Coumadin for one night due to NPO status; resumed on 03/31. INR was 1.9 on day of discharge -- will need f/u INR monitoring. (5) Hypothyroidism: Continued Synthroid. (6) CREST (calcinosis, Raynaud's phenomenon, esophageal dysfunction, sclerodactyly, telangiectasia): Not currently receiving treatment. (7) DVT prophylaxis: SCDs; resumed Coumadin on 03/31. Stable for discharge on 04/01. Will need f/u PT/INR monitoring and f/u with PCP in 1-2 weeks. Total Time Total Time Spent Total Time Spent (In Minutes): >30 minutes Total Time Includes: Examination of the Patient, Discharge Planning, Medication Reconciliation, Communication With Other Providers and Other Discharge Plan Discharge Items Patient Disposition: Home - Self-Care Reason For Visit: SBO Discharge Diagnosis: Partial Small Bowel Obstruction Condition: Good Discharge Goals: Decrease discomfort, Improve disease control, Improve function, Increase independence, Improve nutritional status and Prevent disease Activity: As commented below Exercise/Sports: Gradually increase as tolerated Non-emergency contact: Primary Care Provider Call non-emergency contact if: you have any medication questions, your symptoms worsen, your pain is not controlled, your pain is worsening, your pain is unusual for you, your pain is concerning for you and you have a fever Follow-up/Referrals: Rayray Villalta MD [Primary Care Provider] - Diet: Regular Addtl Provider Instructions: 1. Partial Small Bowel Obstruction * Please continue regular diet as tolerated. * Drink plenty of fluids at home to avoid dehydration. * Continue bowel regimen as follows to avoid constipation: - Over the counter Senokot twice daily scheduled with Miralax as needed for constipation. 2. Paroxysmal A. Fib * Please continue Coumadin 2.5 mg daily. * Please have a follow up INR collected in 2-3 days to monitor levels -- dose will need to be adjusted if necessary. 3. Please follow up with your primary care provider in 1-2 weeks. Prescriptions: New sennosides-docusate sodium [Stool Softener-Stimulant Laxat] 8.6-50 mg tablet 1 tab PO BID Qty: 1 RF: 0 polyethylene glycol 3350 [Miralax] 17 gram powder in packet 17 gm PO DAILY PRN (Reason: constipation) Qty: 1 RF: 0 Continued warfarin 2.5 mg Tablet 2.5 mg PO DAILY RF: 0 meloxicam 7.5 mg tablet 7.5 mg PO DAILY RF: 0 metoprolol succinate 50 mg tablet extended release 24 hr 50 mg PO DAILY RF: 0 lisinopril 2.5 mg tablet 2.5 mg PO DAILY RF: 0 atorvastatin 10 mg tablet 10 mg PO DAILY RF: 0 levothyroxine 100 mcg tablet 100 mg PO DAILY RF: 0 Stand-Alone Forms: [facility] Discharge Orders: Discharge Order (Routine); Ordered 04/01/19 Ordered By: Dayana May Admission Data Admit Date/Time: 04/01/19 11:18 Attending Provider: Andrew Brooks Admit Provider: José Miguel Alfredo Primary Care Provider: Rayray Villalta Other Providers: José Miguel Alfredo Service: Medical Other Interventions: Discharge Summary Assessment (RN) Last Done: 04/01/19 13:33 Pending Studies at Discharge: No DC Date/Time DO NOT enter until pt leaves facility: 04/01/19 16:08 Supervising Physician Co-Signing Physician Notes Attending note: patient seen and examined with Dayana May PA-C. I agree with her discharge summary. Patient feeling much better. Abdomen is no longer distended. She is tolerating diet, moving her bowels. - SMALL BOWEL OBSTRUCTION: resolved with conservative measures continue to advance diet slowly at home abdomen is soft, NT, ND with active bowel sounds follow up with PCP
== END 2019-04-01 16:08 | disposition home or self-care (01) | DRG 389 ==
LOC: 2E 03:23 → ED 03:23 → SUATTDRO 06:51 → 2E 07:17 → 2N 03-31 11:46

== ENCOUNTER 2020-09-05 18:03 | Inpatient (IN) ==
[2020-09-05] MEDS ORDERED: ATROPINE SULFATE 0.1 MG/ML 10ML SYR IV STA ×3 (18:07→19:25)
--- NOTE | 2020-09-05 18:21 | Emergency Department Note ---
Impression & Plan Third degree heart block, Syncope, Alcohol use ED Provider Note NAME: NAT ASIF AGE: 79 SEX: F : 1940 ARRIVES VIA: Ambulance INFORMANT: Patient, ED PROVIDER(S): Jean Garcia MD Chief Complaint: Syncope, bradycardia HPI: Patient does present from home via EMS due to concern for syncopal event and lower heart rate. The patient reportedly was watching television and had an episode of rolling her head back approximately 2 times. Patient did not have a blood glucose check prior to arrival. Patient does complain of some shortness of breath but denies any chest pains. Patient has fevers, chills. The patient states that she has been compliant with her medications. The patient does not use tobacco but did drink 5 glasses of wine last evening. The patient denies any change in lower extremity swelling. Patient does have a history of atrial fibrillation for which she does take metoprolol and Coumadin. The patient does see Dr. Palumbo as an outpatient. ROS: See HPI for pertinent positives and negatives. A total of 10 systems were reviewed and otherwise negative. Past medical history: See below Surgical history: See below Social history: See below Physical Exam: GENERAL: Moderate distress, wearing a mask. EYE EXAM: Normal conjunctiva. PERRL, no anisocoria and EOM's grossly intact w/o pain. NECK: Supple, no nuchal rigidity, no adenopathy, non-tender. No signs of meningismus. LUNGS: Clear to auscultation. Normal chest wall mechanics. HEART: NSR, no MRG. ABDOMEN: Abdomen soft, non-tender, normo-active bowel sounds, no masses, no rebound or guarding. BACK: No CVA TTP. SKIN: No rashes and no bruising. UPPER EXTREMITIES: Upper extremities are grossly normal. LOWER EXTREMITIES: Grossly normal, no edema. NEURO EXAM: A&O x3, cranial nerves II-XII grossly intact, normal speech, moves all 4 extremities on command w/o issue. Differential diagnoses: Vasovagal event, dehydration, infection, hypoglycemia, electrolyte abnormalities, cardiac sources, intracerebral event, pulmonary embolism, seizure, toxicologic, neurologic, as well as other pathologies. Course: Patient was seen and evaluated the bedside. Full history physical exam was performed. EKG: Indication: Syncope Likely third-degree heart block with intermittent P waves with ventricular rate of 40, wide QRS, PVCs noted. Q waves present. Repeat EKG Accelerated junctional rhythm rate of 103 normal QRS, left axis deviation, Q waves throughout. Change in rate from prior. Repeat EKG Possible junctional escape rhythm with P waves noted, ventricular conduction is noted but not necessarily tied to the P wave. Rate of 26, wide QRS, significant change in rate from prior. Imaging Studies: Radiology results as stated below per my review in the radiologist's interpretation: SINGLE VIEW CHEST CLINICAL HISTORY: Generalized weakness. FINDINGS: 2 AP, portable, upright chest radiographs are compared to study dated 03/30/2019 and correlated with chest CT dated 07/31/2014. The examination is significantly degraded by portable technique, large body habitus, apical lordotic positioning, and patient rotation. The heart is markedly enlarged noting atherosclerotic calcification of the thoracic aorta. There is pulmonary vascular congestion. Chronic interstitial thickening is similar to previous. No airspace consolidation or large pleural effusion is identified. No pneumothorax is seen. The skeletal structures are osteopenic. The bony thorax is grossly intact. IMPRESSION: Cardiomegaly with evidence of congestive failure. ACT 112: Negative or not required by law. Electronically signed by: Steven Yip M.D. 09/05/2020 6:36 PM Dictated: 09/05/201833Transcribed: 09/05/201833 Cardiac monitoring: An order was placed for continuous cardiac monitoring. The monitor shows a rate of 40 with heart block rhythm. Procedures: TRANSCUTANEOUS PACEMAKER PROCEDURE NOTE: Transcutaneous Pacemaker Performed by: Dr. Garcia Indication: Third-degree heart block with pauses causing syncope Procedure: The patient was noted to be in a cardiac rhythm requiring pacing. External transcutaneous pacing electrode pads were applied. Pacing electrical amplitude was increased to the point of capture, verified by resulting QRS complex. Hemodynamic response to pacing was monitored. Patient was set at a rate of 50 at an amplitude of 20. The patient did require an increase to 60 and 50 respectively. Complications: None MDM: Patient did present with concern for syncope did present and likely heart block. The patient subsequently did have an accelerated junctional rhythm. BSG was 92 I did speak with the on-call layout designer Dr. Montserrat MD. He did review the EKGs and was concerned that the patient had intermittent heart block. He did think that the second EKG was a likely first-degree AV block with a very prolonged MD and trifascicular block. He did not recommend any additional intravenous medication drips but stated could continues to atropine. He did state he would try and avoid a temporary pacemaker if possible. The patient did have a subsequent drop to where the patient may have had a very prolonged pause to where she passed out again and subsequently regained consciousness. The CODE BLUE had been called given this brief episode but the patient did regain consciousness. The patient did not require CPR. Additional atropine was ordered. The patient's rate was in the 20s and 30s. I did speak to on-call layout designer Dr. Mariano again. He did recommend temporary pacemaker. A heart alert was called. The patient did have a subsequent episode and the patient was transcutaneously paced. Patient states it was mildly uncomfortable but the patient was tolerating this. I did speak with Dr. Mcgill with interventional cardiology who consented the patient for a temporary pacemaker. I subsequently did speak with the on-call hospitalist Dr. Perry. The patient was admitted to the medicine service. Patient received a total of 1 atropine prior to arrival and 3 rounds of atropine in the department. Patient did have a supratherapeutic INR of 4. Rapid Covid was negative. The patient had a mild white count of 13 with a normal H&H and platelet count kidney function unremarkable. Critical Care: I have personally spent 122 minutes of critical care time in direct management of this patient. This includes bedside care, interpretation of diagnostic studies, and testing, discussion with consultants, patient, and family members, and other require inpatient management activities. This 122 minutes is in excess of all separately billable procedures. Past Med/Surg History Medical History (Updated 09/05/20 @ 20:31 by Jean Garcia MD) Endometrial cancer Hx of pilonidal cyst resection [facility] (current) use of anticoagulants Paroxysmal A-fib Surgical History H/O colonoscopy History of hysterectomy S/P partial hysterectomy S/P tonsillectomy Family History Father No problems noted. Mother Congestive heart failure Breast cancer Other Family history non-contributory Social History Smoking Status: Former smoker Hx Alcohol Use: Yes Alcohol type: wine Hx Substance Use: No Preferred Language: Lithuanian Communication Ability: Effective Reject Opener And Filler Required: No Beliefs That Will Affect Care: None Current Living Situation: Alone Feels Safe at Home: Yes Assistive Devices: Walker Allergies Allergies Allergy/AdvReac Type Severity Reaction Status Date / Time Penicillins Allergy Intermediate RASH AND Verified 09/05/20 19:48 ITCHING ON TORSO. FRAGRANCE AdvReac Unknown Sneezing Uncoded 09/05/20 19:48 Home Meds Home Medications Medication Instructions Recorded Confirmed budesonide 2 inh INH BID 09/05/20 09/05/20 Previous Rx's Medication Instructions Recorded metoprolol succinate 50 mg 50 mg PO DAILY #90 tab 07/11/19 tablet,extended release 24 hr atorvastatin 10 mg tablet 10 mg PO DAILY #90 tab 05/26/20 levothyroxine 100 mcg tablet 100 mcg PO DAILY #90 tab 07/28/20 lisinopril 2.5 mg tablet 2.5 mg PO DAILY #90 tab 08/21/20 meloxicam 7.5 mg tablet 7.5 mg PO DAILY #90 tab 08/21/20 warfarin 2.5 mg tablet 2.5 mg PO DAILY #100 tab 08/21/20 Results & Data (ED) Vital Signs Vital Signs - 24 hr 09/05/20 18:05 09/05/20 18:12 09/05/20 18:34 Temperature 36.7 C Temperature Source Oral Pulse Rate 36 L 108 H Pulse Rate from SpO2 Sensor Respiratory Rate 20 24 Blood Pressure 180/84 H 180/84 H Blood Pressure Mean 116 132 Pulse Oximetry 95 96 95 Oxygen Delivery Method Room Air Room Air Room Air Oxygen Flow Rate Sepsis Recent Fever Within 48 Hours No Sepsis New/Unexplained Change in Mental Status No Sepsis Action Taken by Nursing No Action Required 09/05/20 18:49 09/05/20 18:50 09/05/20 19:00 Temperature Temperature Source Pulse Rate 86 94 H 93 H Pulse Rate from SpO2 Sensor Respiratory Rate 22 20 21 Blood Pressure 172/92 H Blood Pressure Mean 115 Pulse Oximetry 96 96 95 Oxygen Delivery Method Room Air Oxygen Flow Rate Sepsis Recent Fever Within 48 Hours Sepsis New/Unexplained Change in Mental Status Sepsis Action Taken by Nursing 09/05/20 19:01 09/05/20 19:15 09/05/20 19:30 Temperature Temperature Source Pulse Rate 94 H 42 L 50 L Pulse Rate from SpO2 Sensor Respiratory Rate 20 19 27 H Blood Pressure 153/93 H Blood Pressure Mean 127 Pulse Oximetry 95 Oxygen Delivery Method Oxygen Flow Rate Sepsis Recent Fever Within 48 Hours Sepsis New/Unexplained Change in Mental Status Sepsis Action Taken by Nursing 09/05/20 19:38 09/05/20 19:45 Temperature Temperature Source Pulse Rate 50 L 60 Pulse Rate from SpO2 Sensor 37 L 52 L Respiratory Rate 28 H 18 Blood Pressure 153/133 H 169/155 H Blood Pressure Mean 141 161 Pulse Oximetry 98 97 Oxygen Delivery Method Nasal Cannula Nasal Cannula Oxygen Flow Rate 2 2 Sepsis Recent Fever Within 48 Hours Sepsis New/Unexplained Change in Mental Status Sepsis Action Taken by [facility] Medications Current Medication List: was personally reviewed by me Laboratory Data Attestation: I reviewed the patient's lab results. Result diagrams: 09/05/20 18:44 09/05/20 18:44 Lab Results 09/05/20 09/05/20 09/05/20 Range/Units 18:17 18:44 18:44 WBC 13.03 H (4.8-10.8) K/uL RBC 4.73 (4.2-5.4) M/uL Hgb 15.7 (12.0-16.0) g/dL Hct 47.0 (37-47) % MCV 99.4 (80-100) fL MCH 33.2 (25-34) pg MCHC 33.4 (32-36) g/dL RDW Std Deviation 51.7 H (36.4-46.3) fL RDW Coeff of Elli 14.2 (11.5-14.5) % Plt Count 224 (130-400) K/uL MPV 9.7 (7.4-10.4) fL Immature Gran % (Auto) 0.2 % Neut % (Auto) 76.2 % Lymph % (Auto) 11.5 % [place] % (Auto) 8.8 % Eos % (Auto) 3.1 % Baso % (Auto) 0.2 % Neut # (Auto) 9.94 H (1.4-6.5) K/uL Lymph # (Auto) 1.50 (1.2-3.4) K/uL [place] # (Auto) 1.15 H (0.11-0.59) K/uL Eos # (Auto) 0.40 (0-0.5) K/uL Baso # (Auto) 0.02 (0-0.2) K/uL Immature Gran # (Auto) 0.02 (0.00-0.02) K/uL PT (9.0-12.0) Seconds INR (0.9-1.1) APTT (21.0-31.0) Seconds PTT Ratio Sodium 136 (136-145) mmol/L Potassium 4.7 (3.5-5.1) mmol/L Chloride 102 (98-107) mmol/L Carbon Dioxide 29 (21-32) mmol/L Anion Gap 6.0 (3-11) BUN 18 (7-18) mg/dl Creatinine 0.64 (0.6-1.2) mg/dl Est Cr Clr Drug Dosing 95.6 ml/min Est GFR ( Amer) 97.0 Est GFR (Non-Af Amer) 83.7 BUN/Creatinine Ratio 28.2 H (10-20) Glucose 99 (70-99) mg/dl POC Glucose 92 (70-99) mg/dl Calcium 8.9 (8.5-10.1) mg/dl Phosphorus 3.1 (2.5-4.9) mg/dl Magnesium 1.8 (1.8-2.4) mg/dl Total Bilirubin 0.5 (0.2-1) mg/dl AST 39 H (15-37) U/L ALT 30 (12-78) U/L Alkaline Phosphatase 123 H (45-117) U/L Total Protein 6.7 (6.4-8.2) gm/dl Albumin 3.2 L (3.4-5.0) gm/dl Globulin 3.5 (2.5-4.0) gm/dl Albumin/Globulin Ratio 0.9 (0.9-2) TSH 2.840 (0.300-4.500) uIu/ml Urine Color Urine Appearance (Clear) Urine pH (4.5-7.5) Ur Specific [place] (1.000-1.030) Urine Protein (Negative) Urine Glucose (UA) (Negative) Urine Ketones (Negative) Urine Blood (Negative) Urine Nitrite (Negative) Urine Bilirubin (Negative) Urine Urobilinogen (Negative) Ur Leukocyte Esterase (Negative) Urine WBC (Auto) (0-5) /hpf Urine RBC (Auto) (0-4) /hpf U Hyaline Cast (Auto) (0-5) /lpf U Epithel Cells (Auto) (0-5) /lpf Urine Bacteria (Auto) (Negative) Ur Renal Epithelial Cell Lyme Disease IgG Ab (Negative) Lyme Disease IgM Ab (Negative) SARS-CoV-2 Ag (Rapid) (Negative) 09/05/20 09/05/20 09/05/20 Range/Units 18:44 19:36 19:58 WBC (4.8-10.8) K/uL RBC (4.2-5.4) M/uL Hgb (12.0-16.0) g/dL Hct (37-47) % MCV (80-100) fL MCH (25-34) pg MCHC (32-36) g/dL RDW Std Deviation (36.4-46.3) fL RDW Coeff of Elli (11.5-14.5) % Plt Count (130-400) K/uL MPV (7.4-10.4) fL Immature Gran % (Auto) % Neut % (Auto) % Lymph % (Auto) % [place] % (Auto) % Eos % (Auto) % Baso % (Auto) % Neut # (Auto) (1.4-6.5) K/uL Lymph # (Auto) (1.2-3.4) K/uL [place] # (Auto) (0.11-0.59) K/uL Eos # (Auto) (0-0.5) K/uL Baso # (Auto) (0-0.2) K/uL Immature Gran # (Auto) (0.00-0.02) K/uL PT 38.7 H (9.0-12.0) Seconds INR 4.0 H (0.9-1.1) APTT 44.7 H (21.0-31.0) Seconds PTT Ratio 1.6 Sodium (136-145) mmol/L Potassium (3.5-5.1) mmol/L Chloride (98-107) mmol/L Carbon Dioxide (21-32) mmol/L Anion Gap (3-11) BUN (7-18) mg/dl Creatinine (0.6-1.2) mg/dl Est Cr Clr Drug Dosing ml/min Est GFR ( Amer) Est GFR (Non-Af Amer) BUN/Creatinine Ratio (10-20) Glucose (70-99) mg/dl POC Glucose (70-99) mg/dl Calcium (8.5-10.1) mg/dl Phosphorus (2.5-4.9) mg/dl Magnesium (1.8-2.4) mg/dl Total Bilirubin (0.2-1) mg/dl AST (15-37) U/L ALT (12-78) U/L Alkaline Phosphatase (45-117) U/L Total Protein (6.4-8.2) gm/dl Albumin (3.4-5.0) gm/dl Globulin (2.5-4.0) gm/dl Albumin/Globulin Ratio (0.9-2) TSH (0.300-4.500) uIu/ml Urine Color Yellow Urine Appearance Cloudy A (Clear) Urine pH 8.0 H (4.5-7.5) Ur Specific [place] 1.014 (1.000-1.030) Urine Protein 2+ H (Negative) Urine Glucose (UA) Negative (Negative) Urine Ketones Negative (Negative) Urine Blood Negative (Negative) Urine Nitrite Positive A (Negative) Urine Bilirubin Negative (Negative) Urine Urobilinogen Negative (Negative) Ur Leukocyte Esterase Trace H (Negative) Urine WBC (Auto) 10-30 H (0-5) /hpf Urine RBC (Auto) 0-4 (0-4) /hpf U Hyaline Cast (Auto) 1-5 (0-5) /lpf U Epithel Cells (Auto) >30 H (0-5) /lpf Urine Bacteria (Auto) 4+ H (Negative) Ur Renal Epithelial Cell Not Reportable Lyme Disease IgG Ab Negative (Negative) Lyme Disease IgM Ab Negative (Negative) SARS-CoV-2 Ag (Rapid) (Negative) 09/05/20 Range/Units Unknown WBC (4.8-10.8) K/uL RBC (4.2-5.4) M/uL Hgb (12.0-16.0) g/dL Hct (37-47) % MCV (80-100) fL MCH (25-34) pg MCHC (32-36) g/dL RDW Std Deviation (36.4-46.3) fL RDW Coeff of Elli (11.5-14.5) % Plt Count (130-400) K/uL MPV (7.4-10.4) fL Immature Gran % (Auto) % Neut % (Auto) % Lymph % (Auto) % [place] % (Auto) % Eos % (Auto) % Baso % (Auto) % Neut # (Auto) (1.4-6.5) K/uL Lymph # (Auto) (1.2-3.4) K/uL [place] # (Auto) (0.11-0.59) K/uL Eos # (Auto) (0-0.5) K/uL Baso # (Auto) (0-0.2) K/uL Immature Gran # (Auto) (0.00-0.02) K/uL PT (9.0-12.0) Seconds INR (0.9-1.1) APTT (21.0-31.0) Seconds PTT Ratio Sodium (136-145) mmol/L Potassium (3.5-5.1) mmol/L Chloride (98-107) mmol/L Carbon Dioxide (21-32) mmol/L Anion Gap (3-11) BUN (7-18) mg/dl Creatinine (0.6-1.2) mg/dl Est Cr Clr Drug Dosing ml/min Est GFR ( Amer) Est GFR (Non-Af Amer) BUN/Creatinine Ratio (10-20) Glucose (70-99) mg/dl POC Glucose (70-99) mg/dl Calcium (8.5-10.1) mg/dl Phosphorus (2.5-4.9) mg/dl Magnesium (1.8-2.4) mg/dl Total Bilirubin (0.2-1) mg/dl AST (15-37) U/L ALT (12-78) U/L Alkaline Phosphatase (45-117) U/L Total Protein (6.4-8.2) gm/dl Albumin (3.4-5.0) gm/dl Globulin (2.5-4.0) gm/dl Albumin/Globulin Ratio (0.9-2) TSH (0.300-4.500) uIu/ml Urine Color Urine Appearance (Clear) Urine pH (4.5-7.5) Ur Specific [place] (1.000-1.030) Urine Protein (Negative) Urine Glucose (UA) (Negative) Urine Ketones (Negative) Urine Blood (Negative) Urine Nitrite (Negative) Urine Bilirubin (Negative) Urine Urobilinogen (Negative) Ur Leukocyte Esterase (Negative) Urine WBC (Auto) (0-5) /hpf Urine RBC (Auto) (0-4) /hpf U Hyaline Cast (Auto) (0-5) /lpf U Epithel Cells (Auto) (0-5) /lpf Urine Bacteria (Auto) (Negative) Ur Renal Epithelial Cell Lyme Disease IgG Ab (Negative) Lyme Disease IgM Ab (Negative) SARS-CoV-2 Ag (Rapid) Negative (Negative) Administered Medications Discontinued Medications Atropine Sulfate (Atropine Sulfate 0.1 Mg/Ml 10ml Syr) 0.5 mg IV NOW STA Stop: 09/05/20 18:08 Last Admin: 09/05/20 19:15 Dose: 0.5 mg Documented by: [id number] Atropine Sulfate (Atropine Sulfate 0.1 Mg/Ml 10ml Syr) 0.5 mg IV NOW STA Stop: 09/05/20 19:19 Last Admin: 09/05/20 19:24 Dose: 0.5 mg Documented by: [id number] Atropine Sulfate (Atropine Sulfate 0.1 Mg/Ml 10ml Syr) 0.5 mg IV NOW STA Stop: 09/05/20 19:26 Last Admin: 09/05/20 19:35 Dose: 0.5 mg Documented by: [id number] Discharge Plan Visit Data Chief Complaint: Cardiac Assessment ED Provider: Jean Garcia Discharge Problem: Third degree heart block, Syncope, Alcohol use Patient Disposition: Still a Patient Discharge Instructions Interventions: ED Discharge Assessment Last Done: 09/05/20 19:55 Discharge Problem: Syncope Qualifiers: Syncope type: unspecified Qualified Code(s): R55 - Syncope and collapse
--- NOTE | 2020-09-05 18:37 | XRay Report ---
SINGLE VIEW CHEST CLINICAL HISTORY: Generalized weakness. FINDINGS: 2 AP, portable, upright chest radiographs are compared to study dated 03/30/2019 and correla mauro with chest CT dated 07/31/2014. The examination is significantly degraded by portable technique, large body habitus, apical lordotic positioning, and patient rotation. The heart is markedly enlarge d noting atherosclerotic calcification of the thoracic aorta. There is pulmonary vascular congestion. Chronic interstitial thickening is similar to previous. No airspace consolidation or large pleural e ffusion is identified. No pneumothorax is seen. The skeletal structures are osteopenic. The bony thor ax is grossly intact. IMPRESSION: Cardiomegaly with evidence of congestive failure. ACT 112: Negative or not required by law. Electronically signed by: Steven Yip M.D. 09/05/2020 6:36 PM
[2020-09-05 18:58] LABS: Basophils # (auto) 0.02 K/uL (0-0.2); Basophils % (auto) 0.2 %; Eosinophils % (auto) 3.1 %; Hemoglobin 15.7 g/dL (12.0-16.0); Immature Granulocytes # (auto) 0.02 K/uL (0.00-0.02); Immature Granulocytes % (auto) 0.2 %; Lymphocytes % (auto) 11.5 %; Mean Corpuscular Hemoglobin 33.2 pg (25-34); Mean Corpuscular Hgb Conc 33.4 g/dL (32-36); Mean Corpuscular Volume 99.4 fL (80-100); Mean Platelet Volume 9.7 fL (7.4-10.4); Monocytes # (auto) 1.15 K/uL (0.11-0.59); Monocytes % (auto) 8.8 %; Neutrophils # (auto) 9.94 K/uL (1.4-6.5); Neutrophils % (auto) 76.2 %; Platelet Count 224 K/uL (130-400); RDW Coefficient of Variation 14.2 % (11.5-14.5); RDW Standard Deviation 51.7 fL (36.4-46.3); Red Blood Count 4.73 M/uL (4.2-5.4); White Blood Count 13.03 K/uL (4.8-10.8)
[2020-09-05 19:14] LABS: Albumin Level 3.2 gm/dl (3.4-5.0); BUN Creatinine Ratio 28.2 (10-20); Calcium 8.9 mg/dl (8.5-10.1); Creatinine Clr Calc Pharmacy 95.6 ml/min; Est GFR (Non-African American) 83.7; Magnesium 1.8 mg/dl (1.8-2.4); Potassium 4.7 mmol/L (3.5-5.1)
[2020-09-05 19:25] LABS: Albumin Globulin Ratio 0.9 (0.9-2); Bilirubin,Total 0.5 mg/dl (0.2-1); Globulin 3.5 gm/dl (2.5-4.0); Phosphorus 3.1 mg/dl (2.5-4.9); Thyroid Stimulating Hormone 2.84 uIu/ml (0.300-4.500); Total Protein 6.7 gm/dl (6.4-8.2)
[2020-09-05 20:01] LABS: Lyme Ab IgG w/WB Rflx Negative (Negative); Lyme Ab IgM w/WB Rflx Negative (Negative)
[2020-09-05] MEDS ORDERED: DOPamine 400MG / 250ML D5W (Cath Lab Use ONLY) ONE (20:06)
[2020-09-05 20:09] LABS: Appearance Urine Cloudy (Clear); Bacteria Urine Automated 4+ (Negative); Bilirubin Urine Negative (Negative); Blood Urine Negative (Negative); Color Urine Yellow; Epithelial Cell Urine Auto >30 /lpf (0-5); Glucose Urine UA Negative (Negative); Ketones Urine Negative (Negative); Leukocyte Esterase Urine Trace (Negative); Nitrite Urine Positive (Negative); Specific Gravity Urine 1.014 (1.000-1.030); Urobilinogen Urine Negative (Negative)
[2020-09-05 20:09] LABS: Partial Thromboplastin Ratio 1.6; Partial Thromboplastin Time 44.7 Seconds (21.0-31.0); Prothrombin Time 38.7 Seconds (9.0-12.0)
[2020-09-05 20:13] LABS: Protein Urine 2+ (Negative)
[2020-09-05 20:16] LABS: Sulfosalicylic Acid Urine Positive (Negative)
[2020-09-05 20:18] LABS: RBC Urine Automated 0-4 /hpf (0-4)
[2020-09-05] MEDS ORDERED: ICU PROTOCOL FOR HYPERGLYCEMIA PRN (20:55)
--- NOTE | 2020-09-05 20:55 | Post Anesthesia Assessment ---
Date of Service September 05, 2020 Post Sedation Assessment Vital Signs Temp Pulse Resp BP Pulse Ox 09/05/20 19:45 60 18 169/155 H 97 09/05/20 19:38 50 L 28 H 153/133 H 98 09/05/20 19:30 50 L 27 H 09/05/20 19:15 42 L 19 09/05/20 19:01 94 H 20 153/93 H 95 09/05/20 19:00 93 H 21 95 09/05/20 18:50 94 H 20 96 09/05/20 18:49 86 22 172/92 H 96 09/05/20 18:34 95 09/05/20 18:12 108 H 24 180/84 H 96 09/05/20 18:05 98.1 F 36 L 20 180/84 H 95 Recovery Score Activity: Moves 4 extremities Respiration: Deep Breath/Cough Circulation: +/-20% PreAnes Value Consciousness: Fully Awake Oxygen Saturation: O2 needed for >90% Discharge Sedation Level of Care: Fast Track Phase II Post Sedation Plan On clinical assessment, the patient appears to have tolerated the sedation without complications. Patient is recovering as anticipated. Patient will continue to be monitored by nursing and may be discharged when sedation discharge criteria are met per below protocol. Upon Completions of procedure up to 15 minutes continue every 5 minute vital signs and the P.A.R. score; then discharge to a Phase I or Fast Track to Phase II per the following guidelines: * Discharge Patient to appropriate Phase II area if PAR is 8 or greater or return to pre- procedure baseline. The post - procedure orders will be as directed. * If PAR score is less than 8 or not return to pre-procedure baseline then patient will follow Phase I monitoring till PAR is reached for Phase II. The Phase I may be done in procedure room or may call to secure a Phase I area. * If naloxone or flumazenil are used for reversal, hold in Phase I for continued monitoring from when last reversal dose was given for a minimum of 60 minutes or longer pending the nurse and/or physician discretion of patient condition before discharge to Phase II. Please call the Sedation Physician to re-evaluate and complete post-note for discharge to Phase II area. Do NOT discharge from procedure sedation or Phase 1 until post- sedation evaluation note is complete by procedure /sedation MD Sedation Discharge Instructions to be given to the patient at discharge to home.
--- NOTE | 2020-09-05 20:55 | Pre Anesthesia Assessment ---
Date of Service September 05, 2020 Pre Sedation Assessment Vital Signs Temp Pulse Resp BP Pulse Ox 09/05/20 19:45 60 18 169/155 H 97 09/05/20 19:38 50 L 28 H 153/133 H 98 09/05/20 19:30 50 L 27 H 09/05/20 19:15 42 L 19 09/05/20 19:01 94 H 20 153/93 H 95 09/05/20 19:00 93 H 21 95 09/05/20 18:50 94 H 20 96 09/05/20 18:49 86 22 172/92 H 96 09/05/20 18:34 95 09/05/20 18:12 108 H 24 180/84 H 96 09/05/20 18:05 98.1 F 36 L 20 180/84 H 95 Cardiovascular + bradycardic Respiratory + labored breathing Pre-Sedation Airway Assessment Smoking Status: Former smoker Hx Sleep Apnea: Yes Hx Difficult Intubation: No Short, Thick Neck: Yes Thyromental Distance: < 3.5 Finger Breadths Oral Cavity: + Dental Abnormalities Mallampati Class: IV ASA: ASA3 Procedure Planning Contraindications for Sedation: none Current Medications Reviewed: Yes Notes The planned sedation has been discussed with the patient. Informed Consent was obtained. I have identified the patient, determined the appropriateness of sedation and have assessed the patient immediately prior to the procedure. All medicine(s) and interventions are by my order.
--- NOTE | 2020-09-05 21:05 | Critical Care Consultation ---
Date of Consultation September 05, 2020 Assessment & Plan (1) Admitted to intensive care unit: Reason Critically Ill: 79-year-old female with complete heart block resulting in syncope x3 who underwent emergent placement of transvenous pacemaker. Requiring close hemodynamic monitoring status post transvenous placement. NEURO - * CAM ICU: NEGATIVE * Syncope: * Episode appreciated in the ED while bradycardic. * Likely 2/2 cardiac s/s. * No focal neurological findings otherwise. CARDIAC/VASCULAR - * Complete Heart Block: * s/p Transvenous pacemaker placement. * Settings: 60bpm, 5 mA * Lyme titers Negative. * Appreciate Cardiology (EP) recommendations. * Monitor on telemetry. RESPIRATORY - * Restrictive Lung Disease/Reactive Airway Disease: * Continue home Rx as needed. * Supplemental O2 PRN. GI/NUTRITION - * Progress diet as tolerated. * Heart Healthy Diet. RENAL/LYTES - * No significant electrolyte derangements. * IVF: Hold on IVF as patient tolerating PO now. - * Urinalysis concerning for UTI: * Patient reports h/o UTIs in the past. * No c/o s/s at this time. * Repeat clean Cath urine specimen. ENDO - * No h/o DM * BSGs per unit protocol. ISS --> gtt per unit policy. * Hypothyroidism: * TSH wnl. * Continue home Rx HEME - * Stable H&H * INR 4.0 - on Coumadin. * Will hold and repeat INR w/ anticipation of likely pacer placement. ID - * UTI: * Repeat cath urine specimen concerning for UTI. * Will add Rocephin for now to minimize chances of translocation which may prolong patient's stay for likely eventual permanent pacer placement. LINES/IV ACCESS - * PIVs x2 * RIGHT IJ Transvenous Pacer DVT PROPHYLAXIS - * Hold on home Coumadin for now pending ??permanent pacer placement. * SCDs I have personally spent 45 minutes of critical care time in the direct management of this patient. This is a life/limb threatening event. This includes time spent evaluating patient, direct bedside care, chart review, placing orders, interpretation of diagnostic studies, discussion with consultants, patient, and family members, as well as other required patient management activities. This time is exclusive of all separately billable procedures, and teaching time and separate from and in addition to any other critical care service time. Thank you for allowing us to participate in the care of this patient. Please refer to my attending physician's documentation for any further recommendations. (2) Third degree heart block: (3) Syncope: (4) assisted (current) use of anticoagulants: (5) Restrictive lung disease: (6) Reactive airway disease: (7) Hyperglycemia: (8) CREST variant of scleroderma: (9) Hypothyroidism: (10) CREST (calcinosis, Raynaud's phenomenon, esophageal dysfunction, sclerodactyly, telangiectasia): (11) Paroxysmal A-fib: (12) HLD (hyperlipidemia): (13) HTN (hypertension): (14) UTI (urinary tract infection): Supervising Physician Co-Signing Physician Notes seen and examined. discussed with GAEL and agree with A?P as noted. Refer to my PN from 09/06 for additional details. History of Present Illness Attending Physician: Rashad Mcgill MD Patient is an 79-year-old female with a significant past medical history of CREST, restrictive lung disease, paroxysmal A. fib anticoagulated on Coumadin, hypertension, hyperlipidemia, hypothyroidism. She presented to the emergency department after syncopal episode x3. Patient reports that at approximately 4 PM she noticed feeling dizzy and lightheaded. Eventually, upon arrival to the emergency department, the patient was found to be in accelerated junctional rhythm. She transiently dropped her heart rate into the 20s and a CODE BLUE was called, however no compressions were instituted. Heart alert was called as the patient had been discussed with interventional cardiology. She was taken to the catheterization suite where she underwent emergent placement of transvenous pacemaker. Upon arrival in the ICU, the patient is awake, alert, and oriented. She reports feeling much better at this time. She denies any complaints of pain. Patient denies any complaints of headaches, dizziness, lightheadedness, chest pain, palpitations, shortness of breath, recent fevers, or recent COVID-19 contacts. Allergies Allergy/AdvReac Type Severity Reaction Status Date / Time Penicillins Allergy Intermediate RASH AND Verified 09/05/20 19:48 ITCHING ON TORSO. FRAGRANCE AdvReac Unknown Sneezing Uncoded 09/05/20 19:48 Home Medications Medication Instructions Recorded Confirmed Type metoprolol succinate 50 mg 50 mg PO DAILY #90 tab 07/11/19 09/05/20 Rx tablet,extended release 24 hr atorvastatin 10 mg tablet 10 mg PO DAILY #90 tab 05/26/20 09/05/20 Rx levothyroxine 100 mcg tablet 100 mcg PO DAILY #90 tab 07/28/20 09/05/20 Rx lisinopril 2.5 mg tablet 2.5 mg PO DAILY #90 tab 08/21/20 09/05/20 Rx meloxicam 7.5 mg tablet 7.5 mg PO DAILY #90 tab 08/21/20 09/05/20 Rx warfarin 2.5 mg tablet 2.5 mg PO DAILY #100 tab 08/21/20 09/05/20 Rx budesonide 2 inh INH BID 09/05/20 09/05/20 History Patient History Medical History (Updated 09/06/20 @ 05:14 by Andrew Morrow PA-C) Endometrial cancer 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 All else were negative. Physical Exam Physical Exam: VITAL SIGNS - Vital signs and nursing notes were reviewed. GENERAL - 79-year-old female appearing her stated age who is in no acute distress. Communicates well with provider and answers questions appropriately. HEAD - NC/AT. EYES - PERRL with EOMI bilaterally. Sclera anicteric. EARS - No deformities of external structures noted on gross examination bilaterally. NOSE - Midline and without cyanosis. No epistaxis or purulent drainage noted. MOUTH/OROPHARYNX - Without perioral cyanosis. Buccal mucosa pink and moist and without leukoplakia. Tongue midline with equal elevation of palate bilaterally. NECK - RIGHT sided IJ transvenous pacer in place. Neck with FROM. Supple to palpation. LUNGS - Chest wall symmetric without accessory muscle use, intercostals retractions, or central cyanosis. Normal vesicular breath sounds CTA B/L. No wheezes, rales, or rhonchi appreciated. CARDIAC - RRR with S1/S2. No murmur, rubs, or gallops appreciated. No reproducible tenderness to palpation appreciated over the anterior chest wall. ABDOMEN - Abdominal contour obese without pulsations or visible masses. BS normoactive all four quadrants. No tenderness, palpable masses, hepatosplenomegaly, or ascites noted. EXTREMITIES - No clubbing or peripheral cyanosis. Moderate venous stasis changes noted to the bilateral lower extremities below the knee. +3/5 radial and dorsalis pedis pulses palpated throughout. +5/5 strength noted in UE/LE bilaterally. NEUROLOGIC - Cranial nerves II through XII grossly intact. Sensory intact to light touch throughout. PSYCH - A&Ox3 and cooperates fully with examiner. Pt is very pleasant and interacts well with examiner. Results & Data Results & Data ([facility]) Vital Signs (Past 12 Hours) Vital Signs Temp Pulse Resp BP Pulse Ox 09/05/20 19:45 60 18 169/155 H 97 09/05/20 19:38 50 L 28 H 153/133 H 98 09/05/20 19:30 50 L 27 H 09/05/20 19:15 42 L 19 09/05/20 19:01 94 H 20 153/93 H 95 09/05/20 19:00 93 H 21 95 09/05/20 18:50 94 H 20 96 09/05/20 18:49 86 22 172/92 H 96 09/05/20 18:34 95 09/05/20 18:12 108 H 24 180/84 H 96 09/05/20 18:05 36.7 C 36 L 20 180/84 H 95 Coding Level of Care Code Critical Care 1st 30-74 mins Diagnoses Admitted to intensive care unit Z78.9 Third degree heart block I44.2 Syncope R55 Syncope type: unspecified 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
--- NOTE | 2020-09-05 21:09 | Cardiology Consultation ---
Date of Consultation September 05, 2020 Assessment & Plan (1) Third degree heart block: Patient here with recurrent syncope in the setting of complete heart block with variable ventricular response. She has continued to have syncopal spells in the ED with incomplete capture of transcutaneous pacer. Plan to proceed with transvenous temporary pacemaker placement. History of Present Illness Attending Physician: Rashad Mcgill MD History of Present Illness Mrs. Mathews is an 79-year-old woman with a history of paroxysmal atrial fibrillation, hypertension, dyslipidemia seen emergently in the ED for complete heart block. She is followed by Dr. Palumbo for her cardiac care. Today was in her usual state of health earlier in the day. While watching TV this evening had 2 episodes were became unresponsive with her eyes rolling back. Brought to the ED where he was noted to have intermittent episodes of complete heart block with variable ventricular escape rhythm. Given multiple rounds of atropine but continued to have intermittent episodes of unresponsiveness in the setting of ventricular rates in the 20s. Transcutaneous pacing started with intermittent capture. Allergies Allergy/AdvReac Type Severity Reaction Status Date / Time Penicillins Allergy Intermediate RASH AND Verified 09/05/20 19:48 ITCHING ON TORSO. FRAGRANCE AdvReac Unknown Sneezing Uncoded 09/05/20 19:48 Home Medications Medication Instructions Recorded Confirmed Type metoprolol succinate 50 mg 50 mg PO DAILY #90 tab 07/11/19 09/05/20 Rx tablet,extended release 24 hr atorvastatin 10 mg tablet 10 mg PO DAILY #90 tab 05/26/20 09/05/20 Rx levothyroxine 100 mcg tablet 100 mcg PO DAILY #90 tab 07/28/20 09/05/20 Rx lisinopril 2.5 mg tablet 2.5 mg PO DAILY #90 tab 08/21/20 09/05/20 Rx meloxicam 7.5 mg tablet 7.5 mg PO DAILY #90 tab 08/21/20 09/05/20 Rx warfarin 2.5 mg tablet 2.5 mg PO DAILY #100 tab 08/21/20 09/05/20 Rx budesonide 2 inh INH BID 09/05/20 09/05/20 History Patient History Medical History (Updated 09/05/20 @ 20:31 by Jean Garcia MD) Endometrial cancer Hx of pilonidal cyst resection intermediate (current) use of anticoagulants Paroxysmal A-fib Surgical History H/O colonoscopy History of hysterectomy S/P partial hysterectomy S/P tonsillectomy Family History Father No problems noted. Mother Congestive heart failure Breast cancer Other Family history non-contributory Social History Smoking Status: Former smoker Hx Alcohol Use: Yes Alcohol type: wine Hx Substance Use: No Preferred Language: Vietnamese Communication Ability: Effective Cuff Slitter Required: No Beliefs That Will Affect Care: None Current Living Situation: Alone Feels Safe at Home: Yes Assistive Devices: Walker Review of Systems Review of Systems: Unobtainable due to reduced consciousness Not obtained Physical Exam Constitutional: + acute distress and + obese Eyes: + scleral abnormality Neck: + thick neck Respiratory: + labored breathing Cardiovascular: Rate/Rhythm: + bradycardic and + irregularly irregular Gastrointestinal (Abdomen): Inspection/Auscultation: + significant pannus Skin: + dry skin Purple in color Psychiatric: Orientation: alert (Intermittently alert) Results & Data ([facility]) Vital Signs (Past 12 Hours) Vital Signs Temp Pulse Resp BP Pulse Ox 09/05/20 19:45 60 18 169/155 H 97 09/05/20 19:38 50 L 28 H 153/133 H 98 09/05/20 19:30 50 L 27 H 09/05/20 19:15 42 L 19 09/05/20 19:01 94 H 20 153/93 H 95 09/05/20 19:00 93 H 21 95 09/05/20 18:50 94 H 20 96 09/05/20 18:49 86 22 172/92 H 96 09/05/20 18:34 95 09/05/20 18:12 108 H 24 180/84 H 96 09/05/20 18:05 98.1 F 36 L 20 180/84 H 95 PG Care Time/CCT Total # of Minutes Spent Total Time Spent with Patient: Total time spent is greater than 50% in coordination of care (as documented) at patient's floor/unit and/or counseling patient: Coding Level of Care Code 20579 Initial Inpt Care Lvl 3 Diagnoses Third degree heart block I44.2
--- NOTE | 2020-09-05 21:12 | Cardiac Catheterization ---
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 Cardiac Status Clinical evaluation leading to the procedure CAD Presenation: Sx unlikely to be ischemic Anginal Classification: No Symptoms Heart Failure: No Cardiogenic Shock within 24 Hours: Yes Cardiac Arrest within 24 Hours: No Imaging Studies Past 6 Months: No Stress Studies Past 6 Months: No Diagnostic Physicians Name: Rashad Mcgill MD Status: Emergency Closure Device Percutaneous Entry Location: Jugular vein Recommendations: Management Recommendatons (Permanent pacemaker placement) Intraprocedure Events Significant Disection: No Perforation: No Cardiac Cath Procedure Full Procedure Date September 05, 2020 Pre-Procedure Diagnosis Pre-Procedure Diagnosis: Arrhythmia (Complete heart block) AUC Score AUC Score: 8 Post-Procedure Diagnosis Post-Procedure Diagnosis: Cardiothoracic Finding (Complete heart block) Procedure(s) Performed Procedure(s) Performed: Temporary Pacemaker and Ultrasound Guided Vascular Access 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 Successful placement of transvenous temporary pacemaker for complete heart block. Recommendations: Admit to ICU Hold beta-britney. Evaluate for CHB reversible causes. Discuss with EP regarding timing of permanent pacemaker placement Hemodynamics Rest Ao:: -- Final Ao: -- LV: -- Recommendations Recommendations: Management Recommendatons (Permanent pacemaker placement) Specimens Specimens: None Radiation Exposure (mGy) 281 Contrast (mls) -- Anesthesia local Procedural Complication(s) None Disposition ICU I attest to the content of the Intraoperative Record and any orders documented therein. Any exceptions are noted below. [facility] Card Cath Procedure Codes Therapeutic Services & Ancillary Proc Procedure 1: Cardiovascular Tx and Anc Procedures: 79421 Ultrasonic Guidance Vascular Access Procedure 2: Cardiovascular Tx and Anc Procedures: 19775 Temp Pacer Insert PG Care Time/CCT Total # of Minutes Spent Total Time Spent with Patient: Total time spent is greater than 50% in coordination of care (as documented) at patient's floor/unit and/or counseling patient:
[2020-09-05 22:23] LABS: Appearance Urine Clear (Clear); Bacteria Urine Automated 4+ (Negative); Bilirubin Urine Negative (Negative); Blood Urine Negative (Negative); Color Urine Yellow; Epithelial Cell Urine Auto >30 /lpf (0-5); Glucose Urine UA Negative (Negative); Ketones Urine Negative (Negative); Leukocyte Esterase Urine Negative (Negative); Nitrite Urine Positive (Negative); Protein Urine 2+ (Negative); RBC Urine Automated 0-4 /hpf (0-4); Urobilinogen Urine Negative (Negative); pH Urine 6.5 (4.5-7.5)
[2020-09-05] MEDS: cefTRIAXone SODIUM 2,000 MG in DEXTROSE 5% 50 ML IV SCH (23:58)
--- NOTE | 2020-09-06 00:18 | History & Physical Report ---
Date of Service September 06, 2020 Assessment & Plan (1) Third degree heart block: Arlene Mathews is a 79 y/o female with past medical hx of paroxysmal afib on coumadin, HTN, HLD, hypothyroidism, CREST, reactive airway disease, former smoker, who presented to [facility] via EMS for syncopal episodes at home today. - Symptoms of recurrent syncope in the setting of complete heart block with variable ventricular response. Also with syncopal spells in the ED with incomplete capture of transcutaneous pacer. - Now s/p transvenous temporary pacemaker placement. Currently hemodynamically stable. - Consults currently include staffing analyst and Cardiology. - Hold coumadin in setting of supratherapeutic INR - Look for reversible causes, Lyme was negative. - Suspect will most likely require permanent pacemaker. - Is and Os. Cardiac monitoring. - Home meds were restarted by courtesy of night staffing analyst, including Lisinopril 2.5mg daily, Toprol XL 50mg daily. Code Status: Full DVT ppx: On Coumadin at home, currently held as supratherapeutic FENGI: Heart healthy diet Dispo: Full admit, currently in ICU s/p cardiac intervention, transfer to tele when clinically appropriate. (2) technician terminal and repeater (current) use of anticoagulants: On Warfarin 2.5mg daily, currently held because of INR of 4.0, supratherapeutic. No active signs of bleeding. (3) Hypothyroidism: Continue with home Synthroid 100 mcg daily before breakfast. TSH 2.84 in ED (4) Alcohol use: Notes daily alcohol use, but denies ever having any alcohol withdrawal symptoms such as tremor/shaky/hallucinations when going without alcohol. She noted her son is an alcoholic. Reports no alcohol today, had a glass of wine poured but did not drink any as had acute syncope. Reports alcohol use yesterday. No current indication for AWSS based on reported history, AST is elevated by not 2:1 ratio with ALT, no previous history of visits here for alcohol abuse on chart review. Would be aware to keep in differential if experiences AMS during stay. (5) Paroxysmal A-fib: c/w Toprol XL 50mg daily (6) HLD (hyperlipidemia): c/w home Lipitor 10mg daily (7) HTN (hypertension): c/w home Lisinopril 2.5mg daily (8) CREST (calcinosis, Raynaud's phenomenon, esophageal dysfunction, sclerodactyly, telangiectasia): noted on history. (9) Reactive airway disease: c/w home budesonide 2nh BID Admission and Anticipated Discharge Date Admission Date: September 05, 2020 History of Present Illness Chief Complaint: Syncope Primary Care Provider: Rayray Villalta MD Arlene Mathews is a 79 y/o female with past medical hx of paroxysmal afib on coumadin, HTN, HLD, hypothyroidism, CREST, reactive airway disease, former smoker, who presented to [facility] via EMS for syncopal episodes at home today. She notes having family over today and was in usual state of health today. She notes she was watching football followed by golf today then lost memory until awakening in the OR. She was alert when arriving to the ED and review of ED notes show she complained of mild dyspnea without chest pain. She was noted to have bradycardia on arrival with concerns for heart block. She was noted to hav e a cardiac prolonged pause with syncope but did regain consciousness. A code blue was called given brief episode. She did not require any CPR. Atropine was given. A temporary pacemaker was recommended by neurology hospitalist. A heart alert was called. She was transcutanously paced in the ED after another syncopal episode with HR in 20s. She had a total of atropine x 1 in the field [employer]NA[employer] and another 3 doses of atropine in ED. Currently in the ICU s/p temporary transvenous pacemaker. She denies any shortness of breath, chest pain, nausea, abdominal pain. She notes feeling tire d. She notes following with Dr. Palumbo with [facility]. She notes former smoker quitting in the . She notes being compliant with all medications. She notes she drinks 1-2 glasses of wine daily. She denies any having withdrawal symptoms in the past when not drinking. Allergies Allergy/AdvReac Type Severity Reaction Status Date / Time Penicillins Allergy Intermediate RASH AND Verified 09/05/20 19:48 ITCHING ON TORSO. FRAGRANCE AdvReac Unknown Sneezing Uncoded 09/05/20 19:48 Home Medications Medication Instructions Recorded Confirmed Type metoprolol succinate 50 mg 50 mg PO DAILY #90 tab 07/11/19 09/05/20 Rx tablet,extended release 24 hr atorvastatin 10 mg tablet 10 mg PO DAILY #90 tab 05/26/20 09/05/20 Rx levothyroxine 100 mcg tablet 100 mcg PO DAILY #90 tab 07/28/20 09/05/20 Rx lisinopril 2.5 mg tablet 2.5 mg PO DAILY #90 tab 08/21/20 09/05/20 Rx meloxicam 7.5 mg tablet 7.5 mg PO DAILY #90 tab 08/21/20 09/05/20 Rx warfarin 2.5 mg tablet 2.5 mg PO DAILY #100 tab 08/21/20 09/05/20 Rx budesonide 2 inh INH BID 09/05/20 09/05/20 History Past Med/Surg History Medical History (Updated 09/06/20 @ 12:19 by Bayron Messina MD) Endometrial cancer Hx of pilonidal cyst resection half-way (current) use of anticoagulants Paroxysmal A-fib Surgical History H/O colonoscopy History of hysterectomy S/P partial hysterectomy S/P tonsillectomy Family History Father No problems noted. Mother Congestive heart failure Breast cancer Other Family history non-contributory Social History Smoking Status: Never smoker Second Hand Exposure: No; Do You Dip or Chew Tobacco: No; Tobacco Cessation Education Requested by Patient: No Hx Alcohol Use: Yes Alcohol type: wine Hx Substance Use: No Preferred Language: Hebrew Communication Ability: Effective Gum Mixer Required: No Beliefs That Will Affect Care: None Current Living Situation: Alone Other Information That Helps Us Care for You: No Feels Safe at Home: Yes Safety Concerns: Feels Safe At This Time Assistive Devices: Denture - Upper and Glasses Review of Systems Review of Systems: All systems reviewed & are unremarkable except as noted in HPI & below Constitutional: no fever and no chills Eyes: no blind spots and no diplopia Ear, Nose, Mouth, Throat: no bleeding gums and no sore throat Respiratory: no cough and no pain on inspiration Cardiovascular: + syncope; no chest pain Gastrointestinal: no abdominal pain, no nausea and no vomiting Musculoskeletal: no neck pain and no muscle weakness Integumentary: no rash and no lesions Neurologic: no numbness and no headache(s) Endocrine: no polydipsia and no polyuria Physical Exam Constitutional: WD/WN, vitals as above + obese, cooperative and comfortable; no acute distress Eyes: PERRL, conjunctivae normal, anicteric sclerae ENMT: external ear and nose normal, oropharynx normal Neck: trachea midline, no thyromegaly Respiratory: no respiratory distress and no labored breathing Auscultation: + diminished lung sounds; no crackles, no rales, no rhonchi and no wheezes Cardiovascular: Rate/Rhythm: regular rate and regular rhythm distant heart sounds Gastrointestinal (Abdomen): Percussion/Palpation: abdomen soft; abdomen nontender, no guarding and abdomen not rigid Musculoskeletal: Head/Neck/Chest: normocephalic and head atraumatic Skin: no rashes, warm and dry Neurologic: moves all extremities and awake Psychiatric: Orientation: alert and oriented x 3 Eye Contact: good eye cont act Affect: + anxious affect requires redirection for her to report her symptoms and history of present illness while taking history Results & Data Results & Data ([facility]) Vital Signs (Past 12 Hours) Vital Signs Temp Pulse Pulse Resp BP BP Pulse Ox 09/05/20 23:02 94 H 21 147/75 H 95 09/05/20 22:48 96 H 19 163/108 H 94 09/05/20 22:33 96 H 19 129/96 95 09/05/20 22:18 102 H 25 H 123/83 95 09/05/20 22:15 98 H 26 H 94 09/05/20 22:11 100 H 22 146/88 H 94 09/05/20 22:00 99 H 15 93 09/05/20 21:45 95 09/05/20 21:38 94 H 20 153/93 H 95 09/05/20 21:30 104 H 29 H 94 09/05/20 21:15 104 H 20 94 09/05/20 21:12 106 H 21 158/83 H 91 09/05/20 21:10 105 H 24 89 L 09/05/20 19:45 60 18 169/155 H 97 09/05/20 19:38 50 L 28 H 153/133 H 98 09/05/20 19:30 50 L 27 H 09/05/20 19:15 42 L 19 09/05/20 19:01 94 H 20 153/93 H 95 09/05/20 19:00 93 H 21 95 09/05/20 18:50 94 H 20 96 09/05/20 18:49 86 22 172/92 H 96 09/05/20 18:34 95 09/05/20 18:12 108 H 24 180/84 H 96 09/05/20 18:05 36.7 C 36 L 20 180/84 H 95 Laboratory Results Laboratory Results - last 24 hr 09/05/20 09/05/20 09/05/20 18:17 18:44 18:44 WBC 13.03 H RBC 4.73 Hgb 15.7 Hct 47.0 MCV 99.4 MCH 33.2 MCHC 33.4 RDW Std Deviation 51.7 H RDW Coeff of Elli 14.2 Plt Count 224 MPV 9.7 Immature Gran % (Auto) 0.2 Neut % (Auto) 76.2 Lymph % (Auto) 11.5 [place] % (Auto) 8.8 Eos % (Auto) 3.1 Baso % (Auto) 0.2 Neut # (Auto) 9.94 H Lymph # (Auto) 1.50 [place] # (Auto) 1.15 H Eos # (Auto) 0.40 Baso # (Auto) 0.02 Immature Gran # (Auto) 0.02 PT INR APTT PTT Ratio Sodium 136 Potassium 4.7 Chloride 102 Carbon Dioxide 29 Anion Gap 6.0 BUN 18 Creatinine 0.64 Est Cr Clr Drug Dosing 95.6 Est GFR ( Amer) 97.0 Est GFR (Non-Af Amer) 83.7 BUN/Creatinine Ratio 28.2 H Glucose 99 POC Glucose 92 Calcium 8.9 Phosphorus 3.1 Magnesium 1.8 Total Bilirubin 0.5 AST 39 H ALT 30 Alkaline Phosphatase 123 H Total Protein 6.7 Albumin 3.2 L Globulin 3.5 Albumin/Globulin Ratio 0.9 TSH 2.840 Urine Color Urine Appearance Urine pH Ur Specific [place] Urine Protein Urine Glucose (UA) Urine Ketones Urine Blood Urine Nitrite Urine Bilirubin Urine Urobilinogen Ur Leukocyte Esterase Urine WBC (Auto) Urine RBC (Auto) U Hyaline Cast (Auto) U Epithel Cells (Auto) Urine Bacteria (Auto) Ur Renal Epithelial Cell Nasal Screen MRSA (PCR) Lyme Disease IgG Ab Lyme Disease IgM Ab SARS-CoV-2 Ag (Rapid) 09/05/20 09/05/20 09/05/20 18:44 19:36 19:58 WBC RBC Hgb Hct MCV MCH MCHC RDW Std Deviation RDW Coeff of Elli Plt Count MPV Immature Gran % (Auto) Neut % (Auto) Lymph % (Auto) [place] % (Auto) Eos % (Auto) Baso % (Auto) Neut # (Auto) Lymph # (Auto) [place] # (Auto) Eos # (Auto) Baso # (Auto) Immature Gran # (Auto) PT 38.7 H INR 4.0 H APTT 44.7 H PTT Ratio 1.6 Sodium Potassium Chloride Carbon Dioxide Anion Gap BUN Creatinine Est Cr Clr Drug Dosing Est GFR ( Amer) Est GFR (Non-Af Amer) BUN/Creatinine Ratio Glucose POC Glucose Calcium Phosphorus Magnesium Total Bilirubin AST ALT Alkaline Phosphatase Total Protein Albumin Globulin Albumin/Globulin Ratio TSH Urine Color Yellow Urine Appearance Cloudy A Urine pH 8.0 H Ur Specific [place] 1.014 Urine Protein 2+ H Urine Glucose (UA) Negative Urine Ketones Negative Urine Blood Negative Urine Nitrite Positive A Urine Bilirubin Negative Urine Urobilinogen Negative Ur Leukocyte Esterase Trace H Urine WBC (Auto) 10-30 H Urine RBC (Auto) 0-4 U Hyaline Cast (Auto) 1-5 U Epithel Cells (Auto) >30 H Urine Bacteria (Auto) 4+ H Ur Renal Epithelial Cell Not Reportable Nasal Screen MRSA (PCR) Lyme Disease IgG Ab Negative Lyme Disease IgM Ab Negative SARS-CoV-2 Ag (Rapid) 09/05/20 09/05/20 09/05/20 21:50 Unknown Unknown WBC RBC Hgb Hct MCV MCH MCHC RDW Std Deviation RDW Coeff of Elli Plt Count MPV Immature Gran % (Auto) Neut % (Auto) Lymph % (Auto) [place] % (Auto) Eos % (Auto) Baso % (Auto) Neut # (Auto) Lymph # (Auto) [place] # (Auto) Eos # (Auto) Baso # (Auto) Immature Gran # (Auto) PT INR APTT PTT Ratio Sodium Potassium Chloride Carbon Dioxide Anion Gap BUN Creatinine Est Cr Clr Drug Dosing Est GFR ( Amer) Est GFR (Non-Af Amer) BUN/Creatinine Ratio Glucose POC Glucose Calcium Phosphorus Magnesium Total Bilirubin AST ALT Alkaline Phosphatase Total Protein Albumin Globulin Albumin/Globulin Ratio TSH Urine Color Yellow Urine Appearance Clear Urine pH 6.5 Ur Specific [place] 1.010 Urine Protein 2+ H Urine Glucose (UA) Negative Urine Ketones Negative Urine Blood Negative Urine Nitrite Positive A Urine Bilirubin Negative Urine Urobilinogen Negative Ur Leukocyte Esterase Negative Urine WBC (Auto) 1-5 Urine RBC (Auto) 0-4 U Hyaline Cast (Auto) 1-5 U Epithel Cells (Auto) >30 H Urine Bacteria (Auto) 4+ H Ur Renal Epithelial Cell Nasal Screen MRSA (PCR) Negative Lyme Disease IgG Ab Lyme Disease IgM Ab SARS-CoV-2 Ag (Rapid) Negative Diagnostic Findings CXR: Cardiomegaly with evidence of congestive failure Medications Administered Ceftriaxone Sodium 2,000 mg/ (Dextrose) 70 mls @ 100 mls/hr IV Q24H [facility]; Protocol Stop: 09/11/20 00:00 Last Admin: 09/05/20 23:58 Dose: 100 mls/hr Documented by: [id number] Code Status & VTE Plan Code Status Full Code VTE Prophylaxis Plan VTE Prophylaxis will be ordered: Yes Critical Care Time Critical Care Time: Yes Total Critical Care Time: 35 Supervising Physician Co-Signing Physician Notes Attending addendum: I have physically seen this patient, have supervised the medical residents activities, and agree with the H&P unless as otherwise noted. Assessment and Plan: Third-degree heart block- Patient was initially transcutaneously paced in the ED, but because of intermittent capture, heart alert was called and Dr. Mcgill took the patient to the [facility] and placed a temporary transvenous pacer. Patient will be followed in the ICU overnight. She will ultimately need to have a permanent pacer placed, and cardiology will be consulted. Remainder of orders per consults for staffing analyst, cardiology and interventional cardiology Resident Activity Tracking Resident Involvement: Resident Care Provided Care Provided: Adult Hospital Medicine
[2020-09-06 05:11] LABS: Basophils # (auto) 0.02 K/uL (0-0.2); Basophils % (auto) 0.2 %; Eosinophils # (auto) 0.06 K/uL (0-0.5); Eosinophils % (auto) 0.6 %; Hematocrit (blood only) 48.8 % (37-47); Hemoglobin 16.2 g/dL (12.0-16.0); Immature Granulocytes # (auto) 0.01 K/uL (0.00-0.02); Immature Granulocytes % (auto) 0.1 %; Lymphocytes # (auto) 1.45 K/uL (1.2-3.4); Lymphocytes % (auto) 14.6 %; Mean Corpuscular Hemoglobin 32.6 pg (25-34); Mean Corpuscular Hgb Conc 33.2 g/dL (32-36); Mean Corpuscular Volume 98.2 fL (80-100); Mean Platelet Volume 10.1 fL (7.4-10.4); Monocytes % (auto) 9.1 %; Neutrophils # (auto) 7.47 K/uL (1.4-6.5); Neutrophils % (auto) 75.4 %; Platelet Count 227 K/uL (130-400); RDW Coefficient of Variation 14.2 % (11.5-14.5); RDW Standard Deviation 50.5 fL (36.4-46.3); Red Blood Count 4.97 M/uL (4.2-5.4); White Blood Count 9.91 K/uL (4.8-10.8)
[2020-09-06 05:39] LABS: BUN Creatinine Ratio 26.5 (10-20); Calcium 8.8 mg/dl (8.5-10.1); Est GFR (African American) 94.2; Est GFR (Non-African American) 81.3; Potassium 4.3 mmol/L (3.5-5.1)
[2020-09-06 05:42] LABS: Phosphorus 2.6 mg/dl (2.5-4.9)
[2020-09-06] MEDS: LEVOTHYROXINE SODIUM 100 MCG TABLET PO SCH (06:14)
[2020-09-06 06:33] LABS: Estimated Average Glucose 114 mg/dl; Hemoglobin A1C 5.6 % (4.5-5.6)
--- NOTE | 2020-09-06 07:53 | Electrocardiogram Report ---
Test Reason : Blood Pressure : / mmHG Vent. Rate : 040 BPM Atrial Rate : 055 BPM P-R Int : 288 ms QRS Dur : 140 ms QT Int : 670 ms P-R-T Axes : 071 096 -71 degrees QTc Int : 546 ms Sinus rhythm with intermittent complete heart block Abnormal ECG When compared with ECG of 30-MAR-2019 03:35, Intermittent complete heart block now present Confirmed by Sharan Conley ([id number]) on 09/06/2020 7:52:53 AM Referred By: REFERRED SELF Confirmed By:Sharan Conley
--- NOTE | 2020-09-06 07:56 | Electrocardiogram Report ---
Test Reason : Blood Pressure : / mmHG Vent. 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
--- NOTE | 2020-09-06 07:58 | Critical Care Progress Note ---
Date of Service September 06, 2020 Assessment & Plan (1) Admitted to intensive care unit: Impression: 79-year-old female with history of A. fib with RVR on metoprolol presenting to the emergency room with syncopal events found to be in third-degree heart block with slow ventricular escape rhythm. She was taken to the [facility] yesterday and underwent transvenous pacer as transcutaneous was not reliably capturing. 24-hour events: Admitted to ICU after [facility] for transvenous pacer. She is been hemodynamically stable. She is tolerating a diet and is awake and alert. Recommendations: 1. Third-degree heart block: This morning the patient appears to have an intrinsic rhythm of 80-90. Her complex is narrow. Unclear if her third-degree heart block was precipitated by metoprolol. Medication has been continued and she does not appear to have a pacing need currently. Could consider discontinuation of metoprolol and replacement with alternative antihypertensives if needed. Await cardiology input. Await cardiology evaluation this morning to determine whether or not she needs a permanent pacemaker and ultimate disposition regarding the transvenous pacemaker. 2. Questionable UTI: Urinalysis was suggestive of contamination given greater than 30 epithelial cells per high-power field however 4+ bacteria was noted. Given possible need for possible future invasive procedure, she was placed empirically on Rocephin and will continue for now 3. Hypertension: Continue lisinopril. See comments regarding metoprolol above. Alternative agents which would not block the AV node may be considered 4. Leukocytosis on presentation now resolved. Continue to follow. 5. A. fib: She is anticoagulated with an INR of 4 today. Will hold additional Coumadin pending cardiology long-term plans 6. Hypothyroidism: Continue Synthroid 7. Will continue to observe in ICU while a transvenous pacemaker is in place. Ultimate disposition will depend upon cardiology input. Plan was discussed with ICU nurse as well as with patient at bedside. Questions were answered to the best of my ability. (2) Syncope: Admission and Anticipated Discharge Date Admission Date: September 05, 2020 Subjective Patient seen and examined. Discussed with critical care nurse and GAEL. She is doing well this morning. She denies any syncopal events. She overall feels well. She is eating breakfast. No chest pain palpitations or shortness of breath. Review of Systems Review of Systems: All systems reviewed & are unremarkable except as noted in HPI & below Physical Exam Constitutional: WD/WN, vitals as above Neck: trachea midline, no thyromegaly Respiratory: normal respiratory effort, lungs clear to auscultation Cardiovascular: RRR, no murmur, no edema Gastrointestinal (Abdomen): normal bowel sounds, soft, nontender, no hepatosplenomegaly Musculoskeletal: Extremities: extremities normal to inspection Skin: no rashes, warm and dry Neurologic: Nonfocal exam Lymphatic: no cervical lymphadenopathy Results & Data Results & Data ([facility]) Vital Signs (Past 12 Hours) Vital Signs Temp Pulse Pulse Resp BP BP Pulse Ox 09/06/20 06:25 88 23 115/52 L 96 09/06/20 05:23 90 13 122/70 96 09/06/20 04:23 36.8 C 92 H 19 130/114 H 93 09/06/20 03:22 90 27 H 164/93 H 96 09/06/20 02:23 88 23 158/85 H 96 09/06/20 01:22 84 25 H 160/88 H 96 09/06/20 00:23 36.7 C 85 22 132/63 95 09/05/20 23:02 94 H 21 147/75 H 95 09/05/20 22:48 96 H 19 163/108 H 94 09/05/20 22:33 96 H 19 129/96 95 09/05/20 22:18 102 H 25 H 123/83 95 09/05/20 22:15 98 H 26 H 94 09/05/20 22:11 100 H 22 146/88 H 94 09/05/20 22:00 99 H 15 93 09/05/20 21:45 95 09/05/20 21:38 94 H 20 153/93 H 95 09/05/20 21:30 104 H 29 H 94 09/05/20 21:15 104 H 20 94 09/05/20 21:12 106 H 21 158/83 H 91 09/05/20 21:10 105 H 24 89 L Laboratory Results 09/06/20 04:32 09/06/20 04:32 Diagnostic Findings Chest x-ray from 09/05/2020 was independently reviewed. Cardiomegaly is noted with prominent pulmonary vasculature. No sidra airspace opacities identified. Coding Level of Care Code 73465 Subseq Hosp Care Lvl 3 Diagnoses Admitted to intensive care unit Z78.9 Syncope R55 Syncope type: unspecified (1) Syncope Syncope type: unspecified Qualified Code(s): R55 - Syncope and collapse
--- NOTE | 2020-09-06 07:58 | Electrocardiogram Report ---
Test Reason : Blood Pressure : / mmHG Vent. Rate : 026 BPM Atrial Rate : 026 BPM P-R Int : 000 ms QRS Dur : 140 ms QT Int : 556 ms P-R-T Axes : 000 092 -76 degrees QTc Int : 365 ms Sinus tachycardia with complete heart block Abnormal ECG When compared with ECG of 05-SEP-2020 18:15, Vent. rate has decreased BY 77 BPM Comlete heart block now present Confirmed by Sharan Conley ([id number]) on 09/06/2020 7:58:20 AM Referred By: REFERRED SELF Confirmed By:Sharan Conley
--- NOTE | 2020-09-06 08:02 | Electrocardiogram Report ---
Test Reason : Blood Pressure : / mmHG Vent. Rate : 101 BPM Atrial Rate : 079 BPM P-R Int : 000 ms QRS Dur : 106 ms QT Int : 384 ms P-R-T Axes : 000 -76 077 degrees QTc Int : 497 ms Sinus tachycardia with 1st degree A-V block Left axis deviation Left ventricular hypertrophy with repolarization abnormality Possible Old Inferior infarct Possible Old Anterolateral infarct Abnormal ECG When compared with ECG of 05-SEP-2020 19:17, Complete heart block no longer present Vent. rate has increased BY 75 BPM Confirmed by Sharan Conley ([id number]) on 09/06/2020 8:01:37 AM Referred By: REFERRED SELF Confirmed By:Sharan Conley
[2020-09-06] MEDS: lisinopril 2.5 MG TAB PO SCH (08:53)
[2020-09-06] MEDS: MELOXICAM 7.5 MG TAB PO SCH (08:53)
[2020-09-06] MEDS: ATORVASTATIN 10 MG TAB PO SCH (08:53)
[2020-09-06] MEDS: FLUTICASONE FUROATE 200MCG 14 PUFFS/INHALER INH SCH (10:06)
[2020-09-06] MEDS: METOPROLOL SUCC 50MG EXT REL TAB PO SCH (11:52)
--- NOTE | 2020-09-06 12:15 | Hospitalist Progress Note ---
Date of Service September 06, 2020 Assessment & Plan (1) Third degree heart block: Noted on EKG on 09/05. Attempted transcutaneous pacer with only some capture; transvenous pacer placed in catheterization laboratory technician by Dr. Mcgill - Presently back in sinus rhythm with no paced beats noted - Plan for cardiology evaluation regarding permanent placer - Must remain in the ICU while transvenous pacer is in place. (2) Syncope: Likely due to bradycardia from heart block. - As above (3) Paroxysmal A-fib: In sinus on EKGs here. - Beta-britney per ICU team - INR up at 4.0 yesterday, so warfarin on hold. (4) Hyperglycemia: Mildly high blood sugar in the AM. - Monitor (5) HTN (hypertension): BP is 130/70 today. 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 - Monitor while inpatient (7) Hypothyroidism: TSH was 2.8 this admission. - Continue home levothyroxine 100 mcg daily (8) HLD (hyperlipidemia): - Continue statin (9) DVT prophylaxis: On warfarin for afib - INR presently > 2.0 Admission and Anticipated Discharge Date Admission Date: September 05, 2020 Subjective No major complaints this AM. Reports no fevers/chills, chest pain, shortness of breath, abdominal pain, nausea, or vomiting. Physical Exam Constitutional: WD/WN, vitals as above Eyes: EOM intact bilaterally; no conjunctival abnormality ENMT: external ear and nose normal, oropharynx normal Neck: trachea midline, no thyromegaly + abnormal visual inspection (Right TV pacer in place) Respiratory: normal respiratory effort, lungs clear to auscultation no respiratory distress Cardiovascular: RRR, no murmur, no edema Gastrointestinal (Abdomen): Inspection/Auscultation: abdomen normal to inspection; abdomen not distended Musculoskeletal: no cyanosis or clubbing, extremities motor strength 5/5 Skin: no rashes, warm and dry Neurologic: moves all extremities and awake Psychiatric: Orientation: alert, oriented to person and cooperative Results & Data Results & Data ([facility]) Vital Signs (Past 12 Hours) Vital Signs Temp Pulse Resp BP Pulse Ox 09/06/20 11:56 36.7 C 09/06/20 11:23 84 28 H 127/67 95 09/06/20 10:22 90 21 147/65 H 96 09/06/20 09:23 90 30 H 117/59 L 94 09/06/20 08:23 90 25 H 93/62 L 94 09/06/20 08:00 36.7 C 91 H 09/06/20 07:23 90 17 119/64 97 09/06/20 06:25 88 23 115/52 L 96 09/06/20 05:23 90 13 122/70 96 09/06/20 04:23 36.8 C 92 H 19 130/114 H 93 09/06/20 03:22 90 27 H 164/93 H 96 09/06/20 02:23 88 23 158/85 H 96 09/06/20 01:22 84 25 H 160/88 H 96 09/06/20 00:23 36.7 C 85 22 132/63 95 PG Care Time/CCT Total # of Minutes Spent Total Time Spent with Patient: Total time spent is greater than 50% in coordination of care (as documented) at patient's floor/unit and/or counseling patient: Coding Level of Care Code 12355 Subseq Hosp Care Lvl 3 Diagnoses Third degree heart block I44.2 Syncope R55 Syncope type: unspecified Paroxysmal A-fib I48.0 Hyperglycemia R73.9 HTN (hypertension) I10 CREST variant of scleroderma M34.1 Hypothyroidism E03.9 HLD (hyperlipidemia) E78.5 DVT prophylaxis Z29.9 (1) Syncope Syncope type: unspecified Qualified Code(s): R55 - Syncope and collapse
--- NOTE | 2020-09-06 12:40 | XCELERA ---
[id number] [id number]
[2020-09-06] MEDS: cefTRIAXone SODIUM 2,000 MG in DEXTROSE 5% 50 ML IV SCH (23:36)
--- NOTE | 2020-09-07 03:07 | Billing Data ---
Date of Service September 07, 2020 Coding Level of Care Code Critical Care 1st mins
[2020-09-07 05:04] LABS: Basophils # (auto) 0.02 K/uL (0-0.2); Basophils % (auto) 0.3 %; Eosinophils # (auto) 0.32 K/uL (0-0.5); Hematocrit (blood only) 48.1 % (37-47); Immature Granulocytes # (auto) 0.01 K/uL (0.00-0.02); Immature Granulocytes % (auto) 0.1 %; Lymphocytes # (auto) 1.51 K/uL (1.2-3.4); Lymphocytes % (auto) 18.9 %; Mean Corpuscular Hemoglobin 32.5 pg (25-34); Mean Corpuscular Hgb Conc 33.3 g/dL (32-36); Mean Corpuscular Volume 97.8 fL (80-100); Mean Platelet Volume 9.7 fL (7.4-10.4); Monocytes # (auto) 0.83 K/uL (0.11-0.59); Monocytes % (auto) 10.4 %; Neutrophils % (auto) 66.3 %; Platelet Count 198 K/uL (130-400); RDW Standard Deviation 50.1 fL (36.4-46.3); Red Blood Count 4.92 M/uL (4.2-5.4); White Blood Count 7.99 K/uL (4.8-10.8)
[2020-09-07 05:17] LABS: INR 2.8 (0.9-1.1); Prothrombin Time 28.3 Seconds (9.0-12.0)
[2020-09-07 05:30] LABS: BUN Creatinine Ratio 24.8 (10-20); Bilirubin,Total 0.8 mg/dl (0.2-1); Calcium 8.8 mg/dl (8.5-10.1); Creatinine Clr Calc Pharmacy 101.5 ml/min; Est GFR (African American) 99.1; Est GFR (Non-African American) 85.5; Magnesium 1.7 mg/dl (1.8-2.4)
[2020-09-07 05:32] LABS: Albumin Globulin Ratio 0.8 (0.9-2); Globulin 3.7 gm/dl (2.5-4.0); Phosphorus 2.6 mg/dl (2.5-4.9); Total Protein 6.7 gm/dl (6.4-8.2)
[2020-09-07] MEDS ORDERED: MAGNESIUM SULFATE / D5W 1 GM/100 ML BAG IV ONE (05:33)
[2020-09-07] MEDS: LEVOTHYROXINE SODIUM 100 MCG TABLET PO SCH (06:32)
--- NOTE | 2020-09-07 07:47 | Critical Care Progress Note ---
Date of Service September 07, 2020 Assessment & Plan (1) Admitted to intensive care unit: Impression: 79-year-old female with history of A. fib with RVR on metoprolol presenting to the emergency room with syncopal events found to be in third-degree heart block with slow ventricular escape rhythm. [facility] and underwent transvenous pacer as transcutaneous was not reliably capturing. 24-hour events: No events overnight. Remains hemodynamically stable. She has an intrinsic rhythm and has not required pacing. Recommendations: 1. Third-degree heart block: Per cardiology. The patient is stable rhythm currently and not requiring pacing. Cardiology consultation is pending to determine timing of pacemaker. Metoprolol was held however the patient is now tachycardic and hypertensive likely from beta-britney withdrawal. I think restarting its reasonable especially in light of the fact that she has a transvenous pacer in place and there are plans for a permanent pacemaker. Hospitalist was to discuss with EP yesterday. 2. Questionable UTI: Urinalysis was suggestive of contamination given greater than 30 epithelial cells per high-power field however 4+ bacteria was noted. Given possible need for possible future invasive procedure, she was placed empirically on Rocephin and will continue for now 3. Hypertension: Continue lisinopril. See comments regarding metoprolol above. 4. Leukocytosis on presentation now resolved. Continue to follow. 5. A. fib: She is anticoagulated with an INR of 2.8 today. Continue to hold Coumadin in anticipation of upcoming procedure. No evidence of bleeding 6. Hypothyroidism: Continue Synthroid 7. Will continue to observe in ICU while a transvenous pacemaker is in place. Ultimate disposition will depend upon cardiology input. Plan was discussed with ICU nurse as well as with patient at bedside. Questions were answered to the best of my ability. (2) Syncope: Admission and Anticipated Discharge Date Admission Date: September 05, 2020 Subjective Seen and examined. No acute complaints this morning. She denies syncope or presyncope. Her metoprolol was held and she is now tachycardic and hypertensive. She is tolerating a diet. She denies chest pain palpitations or lower extremity edema. Review of Systems Review of Systems: All systems reviewed & are unremarkable except as noted in HPI & below Physical Exam Constitutional: WD/WN, vitals as above Neck: trachea midline, no thyromegaly Transvenous pacer site clean dry and intact Respiratory: normal respiratory effort, lungs clear to auscultation Cardiovascular: RRR, no murmur, no edema Gastrointestinal (Abdomen): normal bowel sounds, soft, nontender, no hepatosplenomegaly Musculoskeletal: Extremities: extremities normal to inspection Skin: no rashes, warm and dry Lymphatic: no cervical lymphadenopathy Results & Data Results & Data ([facility]) Vital Signs (Past 12 Hours) Vital Signs Temp Pulse Resp BP Pulse Ox 09/07/20 05:23 36.7 C 108 H 30 H 141/87 H 95 09/07/20 04:22 113 H 20 139/105 H 95 09/07/20 03:22 93 H 27 H 160/94 H 96 09/07/20 02:22 94 H 22 154/88 H 96 09/07/20 01:23 108 H 26 H 163/95 H 95 09/07/20 00:22 36.7 C 111 H 22 130/78 96 09/07/20 00:00 99 H 09/06/20 23:22 97 H 23 163/83 H 97 09/06/20 22:22 36.7 C 100 H 22 180/95 H 95 09/06/20 21:23 95 H 17 153/85 H 96 09/06/20 20:22 88 22 146/69 H 92 Laboratory Results 09/07/20 04:21 09/07/20 04:21 Diagnostic Findings No new imaging Coding Level of Care Code 80240 Subseq Hosp Care Lvl 2 Diagnoses Admitted to intensive care unit Z78.9 Syncope R55 Syncope type: unspecified (1) Syncope Syncope type: unspecified Qualified Code(s): R55 - Syncope and collapse
[2020-09-07] MEDS: FLUTICASONE FUROATE 200MCG 14 PUFFS/INHALER INH SCH (09:03)
[2020-09-07] MEDS: METOPROLOL SUCC 50MG EXT REL TAB PO SCH (09:04)
[2020-09-07] MEDS: lisinopril 2.5 MG TAB PO SCH (09:04)
[2020-09-07] MEDS: ATORVASTATIN 10 MG TAB PO SCH (09:04)
[2020-09-07] MEDS: MELOXICAM 7.5 MG TAB PO SCH (09:04)
--- NOTE | 2020-09-07 12:11 | Hospitalist Progress Note ---
Date of Service September 07, 2020 Assessment & Plan (1) Third degree heart block: Noted on EKG on 09/05. 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 Mcgill - Presently back in sinus rhythm with no paced beats noted - Must remain in the ICU while transvenous pacer is in place. - NPO @ midnight for pacer tomorrow. Discussed with Dr. Conley; he will speak with Dr. Gonzalez. - Once permanent pacer in and TV pacer out; can transfer out of ICU. (2) Syncope: Likely due to bradycardia from heart block. - As above (3) Paroxysmal A-fib: In sinus on EKGs here. - Beta-britney per ICU team - INR up to 2.8 yesterday, so warfarin on hold. (4) Hyperglycemia: Mildly high blood sugar in the AM. - Monitor (5) HTN (hypertension): BP is 130/75 today. 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 - Monitor while inpatient (7) Hypothyroidism: TSH was 2.8 this admission. - Continue home levothyroxine 100 mcg daily (8) HLD (hyperlipidemia): - Continue statin (9) DVT prophylaxis: On warfarin for afib - INR presently > 2.0 Admission and Anticipated Discharge Date Admission Date: September 05, 2020 Subjective No major changes today. Will get pacer tomorrow. Reports no fevers/chills, chest pain, shortness of breath, abdominal pain, nausea, or vomiting. Physical Exam Constitutional: WD/WN, vitals as above Eyes: EOM intact bilaterally; no conjunctival abnormality ENMT: external ear and nose normal, oropharynx normal Neck: trachea midline, no thyromegaly + abnormal visual inspection (Right TV pacer in place) Respiratory: normal respiratory effort, lungs clear to auscultation no respiratory distress Cardiovascular: RRR, no murmur, no edema Gastrointestinal (Abdomen): Inspection/Auscultation: abdomen normal to inspection; abdomen not distended Musculoskeletal: no cyanosis or clubbing, extremities motor strength 5/5 Skin: no rashes, warm and dry Neurologic: moves all extremities and awake Psychiatric: Orientation: alert, oriented to person and cooperative Results & Data Results & Data ([facility]) Vital Signs (Past 12 Hours) Vital Signs Temp Pulse Resp BP Pulse Ox 09/07/20 10:23 90 26 H 132/76 94 09/07/20 09:23 97 H 22 131/92 96 09/07/20 08:23 121 H 18 138/85 95 09/07/20 08:00 36.6 C 108 H 09/07/20 07:23 106 H 19 148/110 H 96 09/07/20 05:23 36.7 C 108 H 30 H 141/87 H 95 09/07/20 04:22 113 H 20 139/105 H 95 09/07/20 03:22 93 H 27 H 160/94 H 96 09/07/20 02:22 94 H 22 154/88 H 96 09/07/20 01:23 108 H 26 H 163/95 H 95 09/07/20 00:22 36.7 C 111 H 22 130/78 96 PG Care Time/CCT Total # of Minutes Spent Total Time Spent with Patient: Total time spent is greater than 50% in coordination of care (as documented) at patient's floor/unit and/or counseling patient: Coding Level of Care Code 17499 Subseq Hosp Care Lvl 2 Diagnoses Third degree heart block I44.2 Syncope R55 Syncope type: unspecified Paroxysmal A-fib I48.0 Hyperglycemia R73.9 HTN (hypertension) I10 CREST variant of scleroderma M34.1 Hypothyroidism E03.9 HLD (hyperlipidemia) E78.5 DVT prophylaxis Z29.9 (1) Syncope Syncope type: unspecified Qualified Code(s): R55 - Syncope and collapse
--- NOTE | 2020-09-07 16:11 | Cardiology Progress Note ---
Date of Service September 07, 2020 Assessment & Plan Admission and Anticipated Discharge Date Admission Date: September 05, 2020 Subjective Patient was feeling well. No subjective palpitations, chest pain, dyspnea, lightheadedness, or other complaints. Results & Data ([facility]) Vital Signs (Past 12 Hours) Vital Signs Temp Pulse Resp BP Pulse Ox 09/07/20 10:23 90 26 H 132/76 94 09/07/20 09:23 97 H 22 131/92 96 09/07/20 08:23 121 H 18 138/85 95 09/07/20 08:00 97.9 F 108 H 09/07/20 07:23 106 H 19 148/110 H 96 09/07/20 05:23 98.1 F 108 H 30 H 141/87 H 95 09/07/20 04:22 113 H 20 139/105 H 95 PG Care Time/CCT Total # of Minutes Spent Total Time Spent with Patient: Total time spent is greater than 50% in coordination of care (as documented) at patient's floor/unit and/or counseling patient: Coding
--- NOTE | 2020-09-07 16:32 | Cardiology Progress Note ---
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 Agree with restarting low-dose beta-britney to manage tachycardia/hypertension. I spoke with Dr. 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 Exact timing will depend on laboratory availability. Unable to check pacer threshold, since she is not requiring pacing currently. Admission and Anticipated Discharge Date Admission Date: September 05, 2020 Subjective Uneventful night. She denies any chest pain, dyspnea, subjective palpitations, or lightheadedness. Mildly tachycardic/hypertensive at times, beta-britney restarted. No further heart block. Physical Exam Physical Exam: Patient appears comfortable. Currently normotensive with pulse 90 and regular. Skin: no ecchymoses or generalized lesions. HEENT: unremarkable. Neck: Jugular venous pulse at the clavicle at 90 degrees, no carotid bruits. Lungs: clear. Cardiac: regular rhythm, no obvious murmur or gallop. Abdomen: benign. Extremities: no edema, pulses intact. Neurologic: normal affect and conversation, nonfocal. Results & Data ([facility]) Laboratory Results INR today was 2.8. Normal CBC. Normal electrolytes, BUN 15, creatinine 0.6. Diagnostic Findings Monitor appears to show sinus rhythm/mild sinus tachycardia, no evidence of recurrent heart block. Echocardiogram yesterday was technically difficult but showed normal systolic function (EF 55 to 60%) with mild LVH and no regional wall motion abnormalities. Mild mitral regurgitation. Pacemaker lead appears appropriately placed in right ventricle. PG Care Time/CCT Total # of Minutes Spent Total Time Spent with Patient: Total time spent is greater than 50% in coordination of care (as documented) at patient's floor/unit and/or counseling patient: Coding Level of Care Code 88917 Subseq Hosp Care Lvl 3 Diagnoses Third degree heart block I44.2 Paroxysmal A-fib I48.0 Tachycardia R00.0 HTN (hypertension) I10 detention (current) use of anticoagulants Z79.01
[2020-09-07] MEDS ORDERED: LACTATED RINGER'S 1,000 ML IV SCH (19:30)
[2020-09-08] MEDS: cefTRIAXone SODIUM 2,000 MG in DEXTROSE 5% 50 ML IV SCH ×2 (00:14→23:43)
[2020-09-08 00:53] LABS: INR 2.2 (0.9-1.1)
[2020-09-08] MEDS ORDERED: PHYTONADIONE 5 MG in SODIUM CHLORIDE 0.9% 50 ML IV ONE (02:19)
[2020-09-08] MEDS ORDERED: CLINDAMYCIN 600 MG/54 ML BAG IV SCH (06:00)
[2020-09-08] MEDS: LEVOTHYROXINE SODIUM 100 MCG TABLET PO SCH (06:06)
[2020-09-08] MEDS ORDERED: LIDOCAINE HCL 1% 20 ML VIAL ONE ×2 (07:23→07:24)
[2020-09-08] MEDS ORDERED: BACITRACIN INJ 50,000 UNIT VIAL ONE (07:24)
[2020-09-08] MEDS ORDERED: BACITRACIN OINT 0.9 GM PKT ONE (07:24)
[2020-09-08] MEDS ORDERED: fentaNYL citrate 100 MCG/2 ML VIAL ONE (07:39)
[2020-09-08] MEDS ORDERED: MIDAZOLAM HCL 5 MG/ML 1 ML VIAL ONE (07:39)
[2020-09-08] MEDS ORDERED: CLINDAMYCIN PHOS 300 MG/2 ML VIAL ONE (07:40)
[2020-09-08 07:50] LABS: Basophils # (auto) 0.02 K/uL (0-0.2); Basophils % (auto) 0.2 %; Eosinophils # (auto) 0.49 K/uL (0-0.5); Eosinophils % (auto) 5.4 %; Hematocrit (blood only) 48.9 % (37-47); Hemoglobin 16.1 g/dL (12.0-16.0); Immature Granulocytes # (auto) 0.01 K/uL (0.00-0.02); Immature Granulocytes % (auto) 0.1 %; Lymphocytes # (auto) 1.52 K/uL (1.2-3.4); Lymphocytes % (auto) 16.8 %; Mean Corpuscular Hgb Conc 32.9 g/dL (32-36); Mean Corpuscular Volume 100.2 fL (80-100); Mean Platelet Volume 10.2 fL (7.4-10.4); Monocytes # (auto) 0.87 K/uL (0.11-0.59); Monocytes % (auto) 9.6 %; Neutrophils # (auto) 6.15 K/uL (1.4-6.5); Neutrophils % (auto) 67.9 %; Platelet Count 213 K/uL (130-400); RDW Coefficient of Variation 14.3 % (11.5-14.5); RDW Standard Deviation 52.3 fL (36.4-46.3); Red Blood Count 4.88 M/uL (4.2-5.4); White Blood Count 9.06 K/uL (4.8-10.8)
--- NOTE | 2020-09-08 07:57 | History & Physical Bridge Note ---
Date of Service September 08, 2020 History & Physical Bridge Note I have examined the patient, reviewed the History & Physical and in the interval since the performance of the History & Physical I have noted the following changes of clinical significance: no changes noted. I reviewed the indications, procedure, risks and alternatives with the patient, answered all questions. Consent obtained. Patient understands and agrees to the procedure. I also reviewed the risks and use of sedation, patient understands and consent obtained.
[2020-09-08 08:02] LABS: INR 1.8 (0.9-1.1)
--- NOTE | 2020-09-08 08:09 | Pre Anesthesia Assessment ---
Date of Service September 08, 2020 Pre Sedation Assessment Vital Signs Temp Pulse Pulse Resp BP BP Pulse Ox 09/08/20 04:23 36.7 C 100 H 139/81 96 09/08/20 03:24 96 H 118/76 97 09/08/20 02:23 97 H 137/73 97 09/08/20 01:23 99 H 134/74 97 09/08/20 00:23 36.7 C 99 H 91/68 L 96 09/08/20 00:00 97 H 09/07/20 23:23 100 H 139/67 96 09/07/20 22:23 96 H 128/75 97 09/07/20 21:23 95 H 20 118/78 95 09/07/20 20:23 96 H 19 130/69 97 09/07/20 20:13 36.7 C 09/07/20 19:23 96 H 16 121/90 97 09/07/20 18:23 100 H 126/77 96 09/07/20 17:26 103 H 16 111/67 98 09/07/20 16:23 98 H 20 112/78 95 09/07/20 16:00 90 09/07/20 15:40 99 H 24 132/73 95 09/07/20 15:23 101 H 16 84/73 L 96 09/07/20 14:23 101 H 24 84/73 L 97 09/07/20 13:23 100 H 22 108/69 95 09/07/20 12:23 104 H 31 H 128/87 95 09/07/20 12:00 36.6 C 09/07/20 11:23 79 21 118/79 95 09/07/20 10:23 90 26 H 132/76 94 09/07/20 09:23 97 H 22 131/92 96 09/07/20 08:23 121 H 18 138/85 95 Cardiovascular RRR, no murmur, no edema Respiratory normal respiratory effort, lungs clear to auscultation Pre-Sedation Airway Assessment Smoking Status: Never smoker Hx Sleep Apnea: No Hx Difficult Intubation: No Short, Thick Neck: Yes Thyromental Distance: < 3.5 Finger Breadths Oral Cavity: + WNL Mallampati Class: III ASA: ASA3 NPO Status Date of Last Intake of Fluids: 09/08/20 Time of Last Intake of Fluids: 00:00 Last Oral Intake of Fluids Comment: sips Date of Last Intake of Solid Food: 09/07/20 Time of Last Intake of Solid Foods: 19:00 Procedure Planning Contraindications for Sedation: none Current Medications Reviewed: Yes Notes The planned sedation has been discussed with the patient. Informed Consent was obtained. I have identified the patient, determined the appropriateness of sedation and have assessed the patient immediately prior to the procedure. All medicine(s) and interventions are by my order.
[2020-09-08 08:22] LABS: BUN Creatinine Ratio 29.2 (10-20); Calcium 8.8 mg/dl (8.5-10.1); Est GFR (Non-African American) 84.6; Potassium 4.1 mmol/L (3.5-5.1)
[2020-09-08] MEDS ORDERED: ACETAMINOPHEN 325 MG TAB PO PRN (09:19)
[2020-09-08] MEDS ORDERED: ACETAMINOPHEN W/CODEINE #3 1 TAB PO PRN (09:19)
--- NOTE | 2020-09-08 09:19 | Electrophysiology Report ---
Date of Service September 08, 2020 Electrophysiology Procedure Electrophysiology Procedure Report Preoperative diagnosis: Intermittent complete heart block Postoperative diagnosis: Same Procedure: Left subclavian venogram Dual-chamber pacemaker implantation Surgeon: Mode Gonzalez MD Estimated blood loss: 20 cc Complications: None Disposition: Early Interventionist recovery Procedure details: After obtaining informed consent for the procedure, the patient was brought to the laboratory and prepped and draped in the standard sterile manner. Dye was injected the left arm IV site to opacify the left subclavian vein. The subclavian vein was identified and found to be free of obstruction. The left prepectoral region was anesthetized with 1% lidocaine local anesthetic and left axillary venipuncture was performed by percutaneous technique and a guidewire placed through the left subclavian vein into the superior vena cava. The area was further infiltrated with 1% lidocaine local anesthetic and a 5 cm incision was made parallel to the left clavicle and 2 cm below it and carried down to the anterior pectoralis fascia. A pacemaker pocket was formed by blunt dissection anterior to the pectoralis fascia and a bacitracin-soaked sponge (50,000 units in 50 cc normal saline solution) was placed in the pocket. An 8 Lao Medtronic lead introducer was placed over the guidewire into the left subclavian vein, the dilator and guidewire were removed and a bipolar active fixation steroid tipped ventricular lead was advanced through the introducer into the superior vena cava. A guidewire was placed through the introducer and the introducer was stripped from the lead and guidewire. Another 8 Lao Medtronic lead introducer was placed over the guidewire into the left subclavian vein, the dilator and guidewire were removed and a bipolar active fixation steroid tipped atrial lead was advanced through the introducer into the superior vena cava. A guidewire was placed back through the introducer and the introducer was stripped from the lead and guidewire. Using a curved stylette the ventricular lead was advanced through the right ventricular outflow tract into the pulmonary artery and then using a straight stylette was positioned in the right ventricular apex. The screw was extended fixing the lead in position. Pacing and sensing thresholds were evaluated in bipolar configuration and are recorded on the implant data sheet. Using a curved stylette the atrial lead was positioned in the region of the atrial appendage and the screw extended fixing the lead in position. Pacing and sensing thresholds were evaluated in bipolar configuration and are recorded on the implant data sheet. Once the leads were in position they were attached to the anterior pectoralis fascia using 2 sutures of 2-0 silk around each lead collar. The bacitracin- soaked sponge was removed from the pocket, hemostasis was obtained, the pacemaker was attached to the leads and placed in the pocket with the leads coiled beneath it. The temporary pacemaker was removed from the right side under fluoroscopic guidance. The incision was closed with a running double subcutaneous closure of 3-0 Vicryl absorbable suture, followed by running subcuticular skin closure of 4-0 Vicryl absorbable suture. Bacitracin ointment was placed on the incision and a pressure dressing applied. [facility] Electrophysiology codes Indication for Procedure (1) Third degree heart block: Pacing Procedure 1: Pacin Insert/Replace Pacer A & V Miscellaneous Procedures Procedure 1: EP Miscellaneous: 59222 Contrast injection for venography Procedure 2: EP Miscellaneous: 83898-00 Vengraphy, extremity PG Moderate Sedation Codes Moderate Sedation Codes Procedure 1: Sedation/Anesthesia: 73412 Mod Sedation by the same physician;Init15 Min Child Age 5 & Up Procedure 2: Sedation/Anesthesia: 67772 Mod Sedation by the same physician; Ea Addition al15 Minutes
--- NOTE | 2020-09-08 09:52 | Post Anesthesia Assessment ---
Date of Service September 08, 2020 Post Sedation Assessment Vital Signs Temp Pulse Pulse Resp BP BP Pulse Ox 09/08/20 09:40 90 18 138/88 97 09/08/20 09:20 96 H 18 136/89 97 09/08/20 04:23 36.7 C 100 H 139/81 96 09/08/20 03:24 96 H 118/76 97 09/08/20 02:23 97 H 137/73 97 09/08/20 01:23 99 H 134/74 97 09/08/20 00:23 36.7 C 99 H 91/68 L 96 09/08/20 00:00 97 H 09/07/20 23:23 100 H 139/67 96 09/07/20 22:23 96 H 128/75 97 09/07/20 21:23 95 H 20 118/78 95 09/07/20 20:23 96 H 19 130/69 97 09/07/20 20:13 36.7 C 09/07/20 19:23 96 H 16 121/90 97 09/07/20 18:23 100 H 126/77 96 09/07/20 17:26 103 H 16 111/67 98 09/07/20 16:23 98 H 20 112/78 95 09/07/20 16:00 90 09/07/20 15:40 99 H 24 132/73 95 09/07/20 15:23 101 H 16 84/73 L 96 09/07/20 14:23 101 H 24 84/73 L 97 09/07/20 13:23 100 H 22 108/69 95 09/07/20 12:23 104 H 31 H 128/87 95 09/07/20 12:00 36.6 C 09/07/20 11:23 79 21 118/79 95 09/07/20 10:23 90 26 H 132/76 94 Recovery Score Activity: Moves 4 extremities Respiration: Deep Breath/Cough Circulation: +/-20% PreAnes Value Consciousness: Fully Awake Oxygen Saturation: > 92% On Room Air Post Anesthesia Score: 10 Discharge Sedation Level of Care: Fast Track Phase II Post Sedation Plan On clinical assessment, the patient appears to have tolerated the sedation without complications. Patient is recovering as anticipated. Patient will continue to be monitored by nursing and may be discharged when sedation discharge criteria are met per below protocol. Upon Completions of procedure up to 15 minutes continue every 5 minute vital sig ns and the P.A.R. score; then discharge to a Phase I or Fast Track to Phase II per the following guidelines: * Discharge Patient to appropriate Phase II area if PAR is 8 or greater or return to pre- procedure baseline. The post - procedure orders will be as directed. * If PAR score is less than 8 or not return to pre-procedure baseline then patient will follow Phase I monitoring till PAR is reached for Phase II. The Phase I may be done in procedure room or may call to secure a Phase I area. * If naloxone or flumazenil are used for reversal, hold in Phase I for continued monitoring from when last reversal dose was given for a minimum of 60 minutes or longer pending the nurse and/or physician discretion of patient condition before discharge to Phase II. Please call the Sedation Physician to re-evaluate and complete post-note for discharge to Phase II area. Do NOT discharge from procedure sedation or Phase 1 until post- sedation evaluation note is complete by procedure /sedation MD Sedation Discharge Instructions to be given to the patient at discharge to home.
[2020-09-08] MEDS: MELOXICAM 7.5 MG TAB PO SCH (10:03)
--- NOTE | 2020-09-08 11:12 | Electrocardiogram Report ---
Test Reason : Blood Pressure : / mmHG Vent. Rate : 096 BPM Atrial Rate : 097 BPM P-R Int : 264 ms QRS Dur : 110 ms QT Int : 350 ms P-R-T Axes : 000 -76 082 degrees QTc Int : 442 ms Sinus rhythm with 1st degree A-V block Left axis deviation Minimal voltage criteria for LVH, may be normal variant Inferior-posterior infarct (cited on or before 05-SEP-2020) Anterolateral infarct (cited on or before 05-SEP-2020) Abnormal ECG When compared with ECG of 05-SEP-2020 21:45, QT has shortened Confirmed by Rashad Hinson ([id number]) on 09/08/2020 11:12:09 AM Referred By: REFERRED SELF Confirmed By:Vince Hinson
--- NOTE | 2020-09-08 11:13 | Critical Care Progress Note ---
Date of Service September 08, 2020 Assessment & Plan (1) Admitted to intensive care unit: Impression: 79-year-old female with history of A. fib with RVR on metoprolol presenting to the emergency room with syncopal events found to be in third-degree heart block with slow ventricular escape rhythm. She was taken to the [facility] yesterday and underwent transvenous pacer as transcutaneous pacing was not reliably capturing. She received a pacemaker today. 24-hour events: No events overnight. Remains hemodynamically stable. She has an intrinsic rhythm and has not required pacing. Recommendations: 1. Third-degree heart block: Per cardiology. The patient is stable rhythm currently and not requiring pacing. She is status post implantable pacemaker today. The transvenous pacemaker has been removed. 2. Questionable UTI: Urinalysis was suggestive of contamination given greater than 30 epithelial cells per high-power field however 4+ bacteria was noted. Given possible need for possible future invasive procedure, she was placed empirically on Rocephin and will continue for now. 3. Hypertension: Continue lisinopril. Restart beta-britney as she currently has a pacemaker. 4. Leukocytosis on presentation now resolved. Continue to follow. 5. A. fib: She received vitamin K overnight. Her INR is down to 2.2. She can restart Coumadin tomorrow. She will need follow-up with her primary care doctor regarding Coumadin management. 6. Hypothyroidism: Continue Synthroid She is stable to be transferred to the floor at this time. Cardiology is indicating that she can likely be discharged home today which is also reasonable. (2) Syncope: Admission and Anticipated Discharge Date Admission Date: September 05, 2020 Subjective Patient is seen status post pacemaker placement. She is doing remarkably well today. She denies any significant pain at the site of the insertion. She is feeling a little bit cold currently. I did give her a warm blanket and she was very grateful. She denies any fevers or chills. She has not tried to ambulate yet. She notes that she walks with a cane at home. Review of Systems Review of Systems: All systems reviewed & are unremarkable except as noted in HPI & below Physical Exam Constitutional: WD/WN, vitals as above Neck: trachea midline, no thyromegaly Transvenous pacer site clean dry and intact Respiratory: normal respiratory effort, lungs clear to auscultation Cardiovascular: RRR, no murmur, no edema Gastrointestinal (Abdomen): normal bowel sounds, soft, nontender, no hepatosplenomegaly Musculoskeletal: Extremities: extremities normal to inspection Skin: no rashes, warm and dry Lymphatic: no cervical lymphadenopathy Results & Data Results & Data ([facility]) Vital Signs (Past 12 Hours) Vital Signs Temp Pulse Pulse Resp BP BP Pulse Ox 09/08/20 09:40 90 18 138/88 97 09/08/20 09:20 96 H 18 136/89 97 09/08/20 04:23 98.1 F 100 H 139/81 96 09/08/20 03:24 96 H 118/76 97 09/08/20 02:23 97 H 137/73 97 09/08/20 01:23 99 H 134/74 97 09/08/20 00:23 98.1 F 99 H 91/68 L 96 09/08/20 00:00 97 H 09/07/20 23:23 100 H 139/67 96 I reviewed the vital signs, labs and imaging Coding Level of Care Code 88391 Subseq Hosp Care Lvl 2 Diagnoses Admitted to intensive care unit Z78.9 Syncope R55 Syncope type: unspecified (1) Syncope Syncope type: unspecified Qualified Code(s): R55 - Syncope and collapse
[2020-09-08] MEDS: lisinopril 2.5 MG TAB PO SCH (12:03)
[2020-09-08] MEDS: ATORVASTATIN 10 MG TAB PO SCH (12:04)
[2020-09-08] MEDS: METOPROLOL SUCC 50MG EXT REL TAB PO SCH (12:04)
[2020-09-08] MEDS: FLUTICASONE FUROATE 200MCG 14 PUFFS/INHALER INH SCH (12:05)
--- NOTE | 2020-09-08 14:02 | Hospitalist Progress Note ---
Date of Service September 08, 2020 Assessment & Plan (1) Third degree heart block: Noted on EKG on 09/05 after having multiple syncopal episodes at home and in the ER. Attempted transcutaneous pacer with only some capture; transvenous pacer placed in director of cardiac cath lab by Dr. Mcgill -Has been back in sinus rhythm with no paced beats noted since admission Now status post permanent pacemaker placement on 09/08 and transvenous pacer was removed Limited echocardiogram performed to check for pericardial effusion given her high INR and this was normal -Continue to monitor on telemetry but can downgrade out of ICU to PCU -Okay to restart home Toprol-XL 50 mg once daily in the morning -Check chest x-ray in the morning (2) Syncope: Likely due to bradycardia from heart block. - As above (3) Paroxysmal A-fib: In sinus on EKGs here. This is mentioned in her history Warfarin has been on hold was given vitamin K on the morning of 09/08 for pacemaker placement Okay to restart Coumadin on 09/09 Follow INR in the morning Okay to restart beta-britney now that pacemaker is in place (4) Hyperglycemia: Mildly high blood sugar here but not very significant - Monitor (5) HTN (hypertension): BP acceptable - Continue lisinopril and restarting home metoprolol as above (6) CREST variant of scleroderma: No particular meds for this. - Monitor while inpatient (7) Hypothyroidism: TSH was 2.8 this admission. - Continue home levothyroxine 100 mcg daily (8) HLD (hyperlipidemia): - Continue statin (9) Morbid obesity with BMI of 40.0-44.9, adult: Morbid obesity, BMI 41.0 kg/m*m Needs weight loss (10) UTI (urinary tract infection): Urine growing E. coli-continue ceftriaxone (11) Hypomagnesemia: Mildly low magnesium Replace with IV magnesium sulfate 2 g Follow level in the morning (12) DVT prophylaxis: On warfarin for afib - INR presently > 2.0 Disposition-downgrade out of ICU to PCU. PT/OT consultations ordered for tomorrow to ensure stable on her feet for discharge to home hopefully on Tuesday Admission and Anticipated Discharge Date Admission Date: September 05, 2020 Subjective Pt had pacer placed today. Was planning on possibly discharging her today but when she stood up to go to the bedside commode, she felt very lightheaded. No chest pain or SOB. Tele with sinus rhythm. I discussed her care with the casing worker and the java lead engineer. Review of Systems Review of Systems: All systems reviewed & are unremarkable except as noted in HPI & below Physical Exam Constitutional: WD/WN, vitals as above + morbidly obese Eyes: + anicteric sclerae ENMT: external ear and nose normal, oropharynx normal Neck: trachea midline, no thyromegaly Respiratory: normal respiratory effort, lungs clear to auscultation Cardiovascular: RRR, no murmur, no edema Gastrointestinal (Abdomen): normal bowel sounds, soft, nontender, no hepatosplenomegaly Musculoskeletal: Extremities: extremities normal to inspection; no cyanosis and no clubbing Skin: no rashes, warm and dry Neurologic: moves all extremities and awake; no focal motor deficits Psychiatric: A+Ox3, euthymic affect Lymphatic: no lymphedema Results & Data Results & Data ([facility]) Vital Signs (Past 12 Hours) Vital Signs Temp Pulse Pulse Resp BP BP Pulse Ox 09/08/20 12:44 89 09/08/20 12:15 102 H 22 117/71 94 09/08/20 12:00 106 H 30 H 119/67 09/08/20 11:55 116 H 16 120/67 96 09/08/20 11:46 99 H 21 147/93 H 97 09/08/20 11:30 103 H 17 151/75 H 95 09/08/20 11:15 104 H 18 156/75 H 96 09/08/20 11:00 94 H 21 122/100 98 09/08/20 10:45 88 20 139/105 H 97 09/08/20 10:30 88 20 163/85 H 96 09/08/20 10:15 91 H 18 151/99 H 96 09/08/20 09:59 90 19 149/100 H 97 09/08/20 09:40 90 18 138/88 97 09/08/20 09:20 96 H 18 136/89 97 09/08/20 08:00 98 H 09/08/20 07:14 97 H 21 145/78 H 99 09/08/20 04:23 36.7 C 100 H 139/81 96 09/08/20 03:24 96 H 118/76 97 09/08/20 02:23 97 H 137/73 97 Laboratory Results 09/08/20 09/08/20 09/08/20 Range/Units 07:37 06:47 06:47 WBC (4.8-10.8) K/uL RBC (4.2-5.4) M/uL Hgb (12.0-16.0) g/dL Hct (37-47) % MCV (80-100) fL MCH (25-34) pg MCHC (32-36) g/dL RDW Std Deviation (36.4-46.3) fL RDW Coeff of Elli (11.5-14.5) % Plt Count (130-400) K/uL MPV (7.4-10.4) fL Immature Gran % (Auto) % Neut % (Auto) % Lymph % (Auto) % [place] % (Auto) % Eos % (Auto) % Baso % (Auto) % Neut # (Auto) (1.4-6.5) K/uL Lymph # (Auto) (1.2-3.4) K/uL [place] # (Auto) (0.11-0.59) K/uL Eos # (Auto) (0-0.5) K/uL Baso # (Auto) (0-0.2) K/uL Immature Gran # (Auto) (0.00-0.02) K/uL PT 18.0 H (9.0-12.0) Seconds POC INR 1.4 H (0.9-1.1) INR 1.8 H (0.9-1.1) Sodium 137 (136-145) mmol/L Potassium 4.1 (3.5-5.1) mmol/L Chloride 101 (98-107) mmol/L Carbon Dioxide 32 (21-32) mmol/L Anion Gap 5.0 (3-11) BUN 18 (7-18) mg/dl Creatinine 0.62 (0.6-1.2) mg/dl Est Cr Clr Drug Dosing 98.0 ml/min Est GFR ( Amer) 98.0 Est GFR (Non-Af Amer) 84.6 BUN/Creatinine Ratio 29.2 H (10-20) Glucose 93 (70-99) mg/dl Calcium 8.8 (8.5-10.1) mg/dl Phosphorus 3.0 (2.5-4.9) mg/dl Magnesium 2.0 (1.8-2.4) mg/dl 09/08/20 09/08/20 Range/Units 06:47 00:32 WBC 9.06 (4.8-10.8) K/uL RBC 4.88 (4.2-5.4) M/uL Hgb 16.1 H (12.0-16.0) g/dL Hct 48.9 H (37-47) % MCV 100.2 H (80-100) fL MCH 33.0 (25-34) pg MCHC 32.9 (32-36) g/dL RDW Std Deviation 52.3 H (36.4-46.3) fL RDW Coeff of Elli 14.3 (11.5-14.5) % Plt Count 213 (130-400) K/uL MPV 10.2 (7.4-10.4) fL Immature Gran % (Auto) 0.1 % Neut % (Auto) 67.9 % Lymph % (Auto) 16.8 % [place] % (Auto) 9.6 % Eos % (Auto) 5.4 % Baso % (Auto) 0.2 % Neut # (Auto) 6.15 (1.4-6.5) K/uL Lymph # (Auto) 1.52 (1.2-3.4) K/uL [place] # (Auto) 0.87 H (0.11-0.59) K/uL Eos # (Auto) 0.49 (0-0.5) K/uL Baso # (Auto) 0.02 (0-0.2) K/uL Immature Gran # (Auto) 0.01 (0.00-0.02) K/uL PT 22.0 H (9.0-12.0) Seconds POC INR (0.9-1.1) INR 2.2 H (0.9-1.1) Sodium (136-145) mmol/L Potassium (3.5-5.1) mmol/L Chloride (98-107) mmol/L Carbon Dioxide (21-32) mmol/L Anion Gap (3-11) BUN (7-18) mg/dl Creatinine (0.6-1.2) mg/dl Est Cr Clr Drug Dosing ml/min Est GFR ( Amer) Est GFR (Non-Af Amer) BUN/Creatinine Ratio (10-20) Glucose (70-99) mg/dl Calcium (8.5-10.1) mg/dl Phosphorus (2.5-4.9) mg/dl Magnesium (1.8-2.4) mg/dl Diagnostic Findings Limited echocardiogram 09/08 with normal LV function, no pericardial effusion PG Care Time/CCT Total # of Minutes Spent Total Time Spent with Patient: Total time spent is greater than 50% in coordination of care (as documented) at patient's floor/unit and/or counseling patient: Coding Level of Care Code 26338 Subseq Hosp Care Lvl 3 Diagnoses Third degree heart block I44.2 Syncope R55 Syncope type: unspecified Paroxysmal A-fib I48.0 Hyperglycemia R73.9 HTN (hypertension) I10 CREST variant of scleroderma M34.1 Hypothyroidism E03.9 HLD (hyperlipidemia) E78.5 Morbid obesity with BMI of 40.0-44.9, adult E66.01; Z68.41 UTI (urinary tract infection) N39.0 Hypomagnesemia E83.42 DVT prophylaxis Z29.9 (1) Syncope Syncope type: unspecified Qualified Code(s): R55 - Syncope and collapse
--- NOTE | 2020-09-08 16:25 | XCELERA ---
[id number]
[2020-09-09 05:34] LABS: Basophils # (auto) 0.02 K/uL (0-0.2); Basophils % (auto) 0.2 %; Eosinophils # (auto) 0.71 K/uL (0-0.5); Eosinophils % (auto) 7.6 %; Hematocrit (blood only) 47.3 % (37-47); Hemoglobin 15.2 g/dL (12.0-16.0); Immature Granulocytes # (auto) 0.02 K/uL (0.00-0.02); Immature Granulocytes % (auto) 0.2 %; Lymphocytes # (auto) 1.61 K/uL (1.2-3.4); Lymphocytes % (auto) 17.1 %; Mean Corpuscular Hemoglobin 32.2 pg (25-34); Mean Corpuscular Hgb Conc 32.1 g/dL (32-36); Mean Corpuscular Volume 100.2 fL (80-100); Mean Platelet Volume 9.6 fL (7.4-10.4); Monocytes # (auto) 0.89 K/uL (0.11-0.59); Monocytes % (auto) 9.5 %; Neutrophils # (auto) 6.14 K/uL (1.4-6.5); Neutrophils % (auto) 65.4 %; Platelet Count 156 K/uL (130-400); RDW Standard Deviation 51.6 fL (36.4-46.3); Red Blood Count 4.72 M/uL (4.2-5.4); White Blood Count 9.39 K/uL (4.8-10.8)
[2020-09-09] MEDS: LEVOTHYROXINE SODIUM 100 MCG TABLET PO SCH (05:38)
[2020-09-09 05:58] LABS: BUN Creatinine Ratio 37.3 (10-20); Calcium 8.6 mg/dl (8.5-10.1); Creatinine Clr Calc Pharmacy 106.6 ml/min; Est GFR (African American) 100.8; Est GFR (Non-African American) 86.9; Potassium 4.3 mmol/L (3.5-5.1)
[2020-09-09] MEDS: FLUTICASONE FUROATE 200MCG 14 PUFFS/INHALER INH SCH (07:55)
[2020-09-09] MEDS: ATORVASTATIN 10 MG TAB PO SCH (07:55)
[2020-09-09] MEDS: METOPROLOL SUCC 50MG EXT REL TAB PO SCH (07:55)
[2020-09-09] MEDS: lisinopril 2.5 MG TAB PO SCH (07:55)
--- NOTE | 2020-09-09 08:17 | Cardiology Progress Note ---
Date of Service September 09, 2020 Assessment & Plan (1) Status post placement of cardiac pacemaker: She is doing well post pacemaker implantation. The site looks good, the device is working well and her chest x-ray shows good lead position and no pneumothorax. She had no pericardial effusion on echocardiography yesterday. She should be stable for discharge. I do have her scheduled for a follow-up visit in 2 days and she is aware of that. 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 She has not had atrial fibrillation here so I do not think there is any urgency to bring her INR up quickly, if we start warfarin now it will take a number of days to reach steady state. I would recommend going ahead and restarting her warfarin at her outpatient dose (although that may have been a little bit high since she came in with an elevated INR). Admission and Anticipated Discharge Date Admission Date: September 05, 2020 Subjective She is feeling well today, she has minimal incisional discomfort and no chest discomfort. Physical Exam Physical Exam: The incision is clean and dry, no active bleeding, slight ecchymosis as expected. Cardiac rhythm is regular with no rub, somewhat rapid Lungs are clear Results & Data ([facility]) Vital Signs (Past 12 Hours) Vital Signs Temp Pulse Resp BP Pulse Ox 09/09/20 07:00 36.8 C 92 H 18 127/82 95 09/09/20 03:30 36.4 C L 94 H 21 115/67 94 09/08/20 23:47 37.1 C 94 H 22 101/61 95 Laboratory Results CBC 09/09/20 Range/Units 05:13 WBC 9.39 (4.8-10.8) K/uL RBC 4.72 (4.2-5.4) M/uL Hgb 15.2 (12.0-16.0) g/dL Hct 47.3 H (37-47) % Plt Count 156 (130-400) K/uL Neut # (Auto) 6.14 (1.4-6.5) K/uL Lymph # (Auto) 1.61 (1.2-3.4) K/uL [place] # (Auto) 0.89 H (0.11-0.59) K/uL Eos # (Auto) 0.71 H (0-0.5) K/uL Baso # (Auto) 0.02 (0-0.2) K/uL Comprehensive Metabolic Panel 09/08/20 09/09/20 Range/Units 06:47 05:13 Sodium 137 134 L (136-145) mmol/L Potassium 4.1 4.3 (3.5-5.1) mmol/L Chloride 101 101 (98-107) mmol/L Carbon Dioxide 32 32 (21-32) mmol/L BUN 18 21 H (7-18) mg/dl Creatinine 0.62 0.57 L (0.6-1.2) mg/dl Glucose 93 92 (70-99) mg/dl Calcium 8.8 8.6 (8.5-10.1) mg/dl Intake and Output 09/08/20 09/09/20 09/09/20 22:59 06:59 14:59 Intake Total 743 / 867 70 / 867 Output Total 300 / 675 325 / 675 Balance 443 / 192 -255 / 192 Intake: IV 343 / 467 70 / 467 Lr 1,000 ml @ 15 mls/hr IV . 343 / 343 Q24H SONIDO Rx#:[id number] Rocephin 2,000 mg In D5w 50 ml 70 / 70 @ 100 mls/hr IV Q24H SONIDO Rx#: [id number] Oral 400 / 400 Output: Urine Amount (Catheter) 300 / 675 325 / 675 External 300 / 675 325 / 675 Other: Weight 122.3 kg Weight Measurement Method Built in [facility] Diagnostic Findings Postop ECG: Sinus rhythm with intact AV conduction, appropriate pacemaker inhibition Postop echo: No pericardial effusion Chest x-ray: Good lead position, no pneumothorax Pacemaker evaluation: Excellent pacing and sensing characteristics PG Care Time/CCT Total # of Minutes Spent Total Time Spent with Patient: Total time spent is greater than 50% in coordination of care (as documented) at patient's floor/unit and/or counseling patient: Coding Level of Care Code 88656 Post Operative Follow-Up Diagnoses Status post placement of cardiac pacemaker Z95.0 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
--- NOTE | 2020-09-09 09:32 | XRay Report ---
TWO VIEW CHEST CLINICAL HISTORY: Cardiac pacemaker implantation.. FINDINGS: AP and lateral chest radiographs are compared to study dated 09/05/2020. A 2-lead cardiac p acemaker has been placed. This partially obscures the left mid chest. Leads project over the right at rial appendage and the right ventricle. The heart is enlarged noting atherosclerotic calcification of the thoracic aorta. The pulmonary vasculature is noncongested. Atelectasis is noted at the lung base s. There is no pleural effusion or pneumothorax. The skeletal structures are osteopenic. The bony tho rax appears intact. Degenerative change, DISH, and hyperkyphosis is noted in the thoracic spine. IMPRESSION: 1. A 2-lead cardiac pacemaker has been implanted as above. No pneumothorax is identified post procedu re. 2. Cardiomegaly without radiographic evidence of congestive failure. 3. No airspace consolidation or pleural effusion is identified ACT 112: Negative or not required by law. Electronically signed by: Steven Yip M.D. 09/09/2020 9:31 AM
--- NOTE | 2020-09-09 11:12 | Discharge Summary ---
Date of Service September 09, 2020 Admission HPI Per Admitting Provider Arlene Mathews is a 79 y/o female with past medical hx of paroxysmal afib on coumadin, HTN, HLD, hypothyroidism, CREST, reactive airway disease, former smoker, who presented to [facility] ED via EMS for syncopal episodes at home today. She notes having family over today and was in usual state of health today. She notes she was watching football followed by golf today then lost memory until awakening in the OR. She was alert when arriving to the ED and review of ED notes show she complained of mild dyspnea without chest pain. She was noted to have bradycardia on arrival with concerns for heart block. She was noted to have a cardiac prolonged pause with syncope but did regain consciousness. A code blue was called given brief episode. She did not require any CPR. Atropine was given. A temporary pacemaker was recommended by installment account checker. A heart alert was called. She was transcutanously paced in the ED after another syncopal episode with HR in 20s. She had a total of atropine x 1 in the field BREAD WRAPPING MACHINE FEEDER and another 3 doses of atropine in ED. Currently in the ICU s/p temporary transvenous pacemaker. She denies any shortness of breath, chest pain, nausea, abdominal pain. She notes feeling tired. She notes following with Dr. Palumbo with [facility]. She notes former smoker quitting in the 90s. She notes being compliant with all medications. She notes she drinks 1-2 glasses of wine daily. She denies any having withdrawal symptoms in the past when not drinking. Principal Diagnosis Complete heart block Discharge Exam Constitutional WD/WN, vitals as above + morbidly obese Eyes + anicteric sclerae ENMT external ear and nose normal, oropharynx normal Neck trachea midline, no thyromegaly Respiratory normal respiratory effort, lungs clear to auscultation Cardiovascular RRR, no murmur, no edema Gastrointestinal (Abdomen) normal bowel sounds, soft, nontender, no hepatosplenomegaly Musculoskeletal Extremities: extremities normal to inspection; no cyanosis and no clubbing Skin no rashes, warm and dry Neurologic moves all extremities and awake; no focal motor deficits Psychiatric A+Ox3, euthymic affect Lymphatic no lymphedema Discharge Data Allergies Allergy/AdvReac Type Severity Reaction Status Date / Time Penicillins Allergy Intermediate RASH AND Verified 09/05/20 19:48 ITCHING ON TORSO. FRAGRANCE AdvReac Unknown Sneezing Uncoded 09/05/20 19:48 Consultations 09/05/20 19:33 ED Decision to Admit Stat 09/05/20 20:57 Consult Case Management - Discharge Planning Routine Consult Pipe Production Worker Routine 09/05/20 23:19 Consult Cardiology Routine Procedures Performed Operation Date: 09/05/20 20:00 Actual Procedures p Ins/RemTemporary Transvenous Pacer - Edinson Mcgill MD s Ultrasound Vascular Access - Edinson Mcgill MD Operation Date: 09/08/20 08:00 Actual Procedures p Pacer with A/V Leads (Dual) - Mode Gonzalez MD CXR x 2 ECHO x 2 Ordered Studies 09/05/20 19:47 CL Cath Imgs for PACS use only Stat 09/08/20 07:12 CL Cath Imgs for PACS use only Routine Hospital Course (1) Third degree heart block: Noted on EKG on 09/05 after having multiple syncopal episodes at home and in the ER. Attempted transcutaneous pacer with only some capture; transvenous pacer placed in slab grinder by Dr. Mcgill -Has been back in sinus rhythm with no paced beats noted since admission Now status post permanent pacemaker placement on 09/08 and transvenous pacer was removed Limited echocardiogram performed to check for pericardial effusion given her high INR and this was normal DOing well, post-op CXR normal, pacer functioning appririately as per Cardiology, and stable for dc -cont home Toprol-XL 50 mg once daily in the morning f/u outpt with Cardiology LUE limb restrictions reviewed (2) Syncope: Likely due to bradycardia from heart block. - As above (3) Paroxysmal A-fib: In sinus on EKGs here. 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 - Monitor while inpatient (7) Hypothyroidism: TSH was 2.8 this admission. - Continue home levothyroxine 100 mcg daily (8) HLD (hyperlipidemia): - Continue statin (9) Morbid obesity with BMI of 40.0-44.9, adult: Morbid obesity, BMI 41.0 kg/m*m Needs weight loss (10) UTI (urinary tract infection): Urine growing E. coli-asymptomatic bacteriuria -received 4 days of IV ceftriaxone-none further needed (11) Hypomagnesemia: Mildly low magnesium Replaced with IV magnesium sulfate 2 g and now normal (12) DVT prophylaxis: On warfarin for afib - reversed for procedure Disposition-dc to home with home health Total Time Total Time Spent Total Time Spent (In Minutes): 35 min Total Time Includes: Examination of the Patient, Discharge Planning, Medication Reconciliation and Communication With Other Providers (Cardiology) Discharge Plan Discharge Items Patient Disposition: Home - Home Health Services Reason For Visit: COMPLETE HEART BLOCK Discharge Diagnosis: Complete heart block Condition on Discharge: Good Activity: As commented below Lifting Comment: None with the left upper extremity Bathing: Keep incision dry Exercise/Sports: Gradually increase as tolerated Exercise Comment: do not raise left arm above level of shoulder x 2 weeks Non-emergency contact: Primary Care Provider and Android Framework Developer Call non-emergency contact if: you have any medication questions, your pain is not controlled and you have a fever Follow-up/Referrals: Mode Gonzalez MD [Physician] - 09/11/20 11:00 am Rayray Villalta MD [Primary Care Provider] - 09/18/20 11:00 am (follow up within 1-2 weeks ) Diet: Heart Healthy Addtl Attending Provider Instructions: You were admitted with a complete heart block which caused you to pass out. You had a pacemaker implanted. Please restart your coumadin at your usual doses today and check your INR in 3 days at home. Follow up with the Android Framework Developer as scheduled this week. You were also requiring 2L of oxygen via nasal cannula with any activity. Please follow up with Dr. Villalta within 1-2 weeks. ACTIVITY RECOMMENDATIONS: * Do not raise affected arm over head for 2 weeks. SPECIAL CARE INSTRUCTIONS: * If bleeding occurs, apply direct pressure to area for 5 minutes. * Call your doctor if you have severe pain, fever, drainage or bleeding at site. * Keep dressing on and dry for 48 hours then remove. * Keep any scheduled doctor's appointment. * Implant Card - hand held device with website information given. SKIN IRRITATION: * You may experience some redness and/or swelling in the area where radiation was administered. If any skin irritation occurs, please contact your family physician. FOLLOW UP VISIT: Keep any scheduled doctor appointments. Pending Studies at Discharge: No Stand-Alone Forms: My [facility] Medications and DC Order Prescriptions: Continued atorvastatin 10 mg tablet 10 mg PO DAILY Qty: 90 RF: 3 levothyroxine 100 mcg tablet 100 mcg PO DAILY Qty: 90 RF: 3 warfarin 2.5 mg tablet 2.5 mg PO DAILY Qty: 100 RF: 0 lisinopril 2.5 mg tablet 2.5 mg PO DAILY Qty: 90 RF: 3 meloxicam 7.5 mg tablet 7.5 mg PO DAILY Qty: 90 RF: 3 metoprolol succinate 50 mg tablet extended release 24 hr 50 mg PO DAILY Qty: 90 RF: 3 budesonide 180 mcg/actuation aerosol powdr breath activated 2 inh INH BID RF: 0 Discharge Orders: Discharge Order (Routine); Ordered 09/09/20 Ordered By: Columba Mejia Admission Data Admit Date/Time: 09/05/20 20:57 Attending Provider: Columba Mejia Admit Provider: Edinson Mcgill Primary Care Provider: Rayray Villalta Other Providers: Bayron Messina ; Casey Ramsey ; Kvng Lazar ; Edinson Mcgill Coding Level of Care Code D/C Day Management >30 mins Diagnoses Third degree heart block I44.2 Syncope R55 Syncope type: unspecified Paroxysmal A-fib I48.0 Hyperglycemia R73.9 HTN (hypertension) I10 CREST variant of scleroderma M34.1 Hypothyroidism E03.9 HLD (hyperlipidemia) E78.5 Morbid obesity with BMI of 40.0-44.9, adult E66.01; Z68.41 UTI (urinary tract infection) N39.0 Hypomagnesemia E83.42 DVT prophylaxis Z29.9
[2020-09-09] MEDS ORDERED: WARFARIN SOD 2.5 MG TAB PO SCH (16:00)
== END 2020-09-09 12:35 | disposition home health service (06) | DRG 229 ==
LOC: ED 18:03 → CC 19:55 → SUATTDRO 20:57 → 1E 20:57

== ENCOUNTER 2023-04-02 23:22 | Inpatient (IN) ==
[2023-04-03 01:58] LABS: Basophils # (auto) 0.06 K/uL (0-0.2); Basophils % (auto) 0.5 %; Eosinophils # (auto) 0.06 K/uL (0-0.50); Eosinophils % (auto) 0.5 %; Hematocrit (blood only) 47.8 % (37.0-47.0); Hemoglobin 16.3 g/dl (12.0-16.0); Immature Granulocytes # (auto) 0.03 K/uL (0.01-0.20); Immature Granulocytes % (auto) 0.3 %; Lymphocytes # (auto) 0.98 K/uL (1.2-3.4); Lymphocytes % (auto) 8.5 %; Mean Corpuscular Hemoglobin 32.5 pg (25.0-34.0); Mean Corpuscular Hgb Conc 34.1 g/dL (32.0-36.0); Mean Corpuscular Volume 95.2 fL (80.0-100.0); Mean Platelet Volume 9.3 fL (9.4-12.4); Monocytes # (auto) 1.04 K/uL (0.11-0.59); Neutrophils # (auto) 9.38 K/uL (1.40-6.50); Neutrophils % (auto) 81.2 %; Platelet Count 245 K/uL (130-400); RDW Coefficient of Variation 13.8 % (11.5-14.5); RDW Standard Deviation 48.7 fL (36.4-46.3); Red Blood Count 5.02 M/uL (4.20-5.40); White Blood Count 11.55 K/ul (4.8-10.8)
[2023-04-03 02:05] LABS: Albumin Globulin Ratio 1.1 (0.9-2); Albumin Level 3.2 gm/dl (3.4-5.0); BUN Creatinine Ratio 24.5 (10-20); Bilirubin,Total 1.3 mg/dl (0.2-1.0); Creatinine Clr Calc Pharmacy 99.5 ml/min; Est GFR (African American) 101.1 ml/min; Est GFR (Non-African American) 87.2 ml/min; Potassium 3.9 mmol/L (3.5-5.1); Total Protein 6.2 gm/dl (6.0-8.3)
[2023-04-03 02:16] LABS: Troponin I High Sensitivity 58.9 pg/ml (0-14)
--- NOTE | 2023-04-03 02:16 | Emergency Department Note ---
Impression & Plan Elevated troponin, Fall, Sacral decubitus ulcer Admit to the [facility] ED Provider Note NAME: NAT ASIF AGE: 82 SEX: F ARRIVES VIA: Ambulance INFORMANT: Patient and her daughter ED PROVIDER(S): Jossie Veloz DO CHIEF COMPLAINT: Fall PLAN: Disposition: Admit to the [facility] Condition: Fair MEDICAL DECISION MAKING: This is an 82-year-old female patient with chronic health issues who suffered a fall tonight. Patient has a large sacral decubitus on physical exam for which home health has been coming in to address the significant wound. Family explains that they have been trying to get the patient into inpatient rehab. EMS arrived at home after the patient fell and found to be hypoxic. Laboratory studies revealed a significantly elevated troponin near 60. She had mild leukocytosis with a white count of 11.5. There was moderate hemoconcentration with a hemoglobin of 16.3 and hematocrit of 47. Total bilirubin was elevated at 1.3. I discussed the case with the [facility] [place] [facility] and they will evaluate for further inpatient care. Triage Nursing notes reviewed and agree with them. Additional history obtained from her daughter who is at the bedside. Prior medical records reviewed Vital Signs: reviewed and remarkable for tachycardia Differential diagnosis: UTI, dehydration, generalized weakness ER treatment provided: Diagnostics interpreted by me: ECG: Normal sinus rhythm at a rate of 88 with first-degree AV block and frequent PVCs. There is a right bundle branch block in comparison to previous EKG there was no significant change. There was no signs of ischemia. Cardiac Monitoring: Normal sinus rhythm at a rate of 98 Laboratory studies: See below Imaging studies: As per my independent interpretation Chest x-ray: Cardiomegaly with implantable pacemaker. No obvious pulmonary vascular congestion HPI: 82/F arrives for evaluation of fall. Patient was unable to get her pants back up in the bathroom tonight and was trying to move about in the bathroom when she tripped over the pants and fell landing on her left shoulder. Patient does live alone and is currently being evaluated for admission into a rehab facility for help with healing of a pressure wound on her buttocks. PAST MEDICAL HISTORY:See Below PAST SURGICAL HISTORY:See Below FAMILY HISTORY:See Below SOCIAL HISTORY:See Below HOME MEDICATIONS:See list ALLERGIES:See list VITALS:See Below PHYSICAL EXAMINATION: HEENT: Head - normocephalic and atraumatic. Pupils are equal, round, and reactive to light. Extraocular eye muscles are intact, and sclera are anicteric. Nose - moist nasal mucosa without discharge. Mouth - moist buccal mucosa. Oropharynx is nonerythematous and there is no tonsillar exudate or edema noted. Neck: Supple; no pain to palpation over the posterior cervical spine. There was no nuchal rigidity or cervical lymphadenopathy. Heart: Regular rate and rhythm. There is a normal S1 and S2 with no murmurs, clicks, or gallops appreciated. Lungs: Clear to auscultation bilaterally with no wheezes, rales, or rhonchi. Abdomen: Soft, completely nontender, nondistended, with good bowel sounds. There are no palpable pulsatile masses or hepatosplenomegaly. There is no guarding, rigidity, or rebound noted. Extremities: No evidence of cyanosis, clubbing, or edema. There are easily palpable peripheral pulses. Skin: warm and dry with good turgor and no rashes. Buttocks: Patient has an extensive deep sacral decubitus. ED COURSE: Times/Reassessments: 2350: The patient was evaluated in room C7. A complete history and physical was performed. An order was placed for continuous cardiac monitoring. The patient was in a normal sinus rhythm at a rate of 98. A twelve-lead EKG was obtained as described above. Laboratories were drawn as above. Portable chest x-ray was performed as described above. Patient describes significant weakness over the past couple of days. Family has been trying to get her placed at [facility] for inpatient rehab. I reviewed the results of the laboratory studies with the patient and her family. Jossie Veloz DO Past Med/Surg History Medical History (Updated 04/04/23 @ 06:51 by Jossie Veloz DO) Arthritis CREST variant of scleroderma Endometrial cancer HLD (hyperlipidemia) HTN (hypertension) Hx of pilonidal cyst resection Hypothyroidism [facility] (current) use of anticoagulants Morbid obesity with BMI of 40.0-44.9, adult Osteopenia Paroxysmal A-fib Partial small bowel obstruction Restrictive lung disease SBO (small bowel obstruction) Syncope Tachycardia Third degree heart block Surgical History H/O colonoscopy History of hysterectomy S/P partial hysterectomy S/P tonsillectomy Family History Father No problems noted. 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 FRAGRANCE AdvReac Unknown Sneezing Uncoded 04/03/23 00:34 Home Meds Home Medications Medication Instructions Recorded Confirmed atorvastatin 10 mg tablet 10 mg PO DAILY 04/03/23 04/03/23 budesonide 180 mcg/actuation 2 inh inhalation DAILY 04/03/23 04/03/23 breath activated powder inhaler (Pulmicort Flexhaler) metoprolol succinate 100 mg 100 mg PO DAILY 04/03/23 04/03/23 tablet,extended release 24 hr Previous Rx's Medication Instructions Recorded levothyroxine 100 mcg tablet 100 mcg PO DAILY #90 tabs 04/21/22 lisinopril 2.5 mg tablet 2.5 mg PO DAILY #90 tabs 05/26/22 meloxicam 7.5 mg tablet 7.5 mg PO DAILY #90 tabs 05/26/22 clobetasol 0.05 % topical ointment 1 g topical BID #60 grams 11/08/22 apixaban 5 mg tablet (Eliquis) 5 mg PO BID #180 tabs 02/04/23 collagenase clostridium histo. 250 1 applic topical 3XWK #30 grams 03/29/23 unit/gram topical ointment (Santyl) Results & Data (ED) Vital Signs Vital Signs - 24 hr 04/02/23 23:35 04/02/23 23:50 04/02/23 23:55 Temperature 37.3 C Temperature Source Oral Pulse Rate 107 H Pulse Rate from SpO2 Sensor Respiratory Rate 20 20 Respiratory Effort / Characteristics Non-Labored Spontaneous Non-Labored Spontaneous Respiratory Depth Normal Normal Respiratory Pattern Regular Blood Pressure 103/67 Blood Pressure Mean 79 Blood Pressure Position Lying Pulse Oximetry 98 90 88 L Oxygen Delivery Method Nasal Cannula Room Air Room Air Oxygen Flow Rate 4 Sepsis Recent Fever Within 48 Hours No Sepsis New/Unexplained Change in Mental Status N/A Sepsis Action Taken by Nursing No Action Required 04/02/23 23:55 04/03/23 01:29 04/02/23 23:55 Temperature Temperature Source Pulse Rate 107 H Pulse Rate from SpO2 Sensor Respiratory Rate Respiratory Effort / Characteristics Respiratory Depth Respiratory Pattern Blood Pressure Blood Pressure Mean Blood Pressure Position Pulse Oximetry 91 97 Oxygen Delivery Method Nasal Cannula Nasal Cannula Oxygen Flow Rate 1 1 Sepsis Recent Fever Within 48 Hours Sepsis New/Unexplained Change in Mental Status Sepsis Action Taken by Nursing 04/03/23 02:30 04/03/23 03:16 04/03/23 03:16 Temperature Temperature Source Pulse Rate 85 100 H Pulse Rate from SpO2 Sensor 88 99 H Respiratory Rate 29 H 20 Respiratory Effort / Characteristics Respiratory Depth Respiratory Pattern Blood Pressure 117/61 Blood Pressure Mean 75 Blood Pressure Position Pulse Oximetry 93 93 Oxygen Delivery Method Nasal Cannula Nasal Cannula Oxygen Flow Rate 1.5 1.5 Sepsis Recent Fever Within 48 Hours Sepsis New/Unexplained Change in Mental Status Sepsis Action Taken by Nursing Laboratory Data 04/03/23 01:18 04/03/23 01:18 Lab Results 04/03/23 04/03/23 04/03/23 Range/Units 01:17 01:18 01:18 WBC 11.55 H (4.8-10.8) K/ul RBC 5.02 (4.20-5.40) M/uL Hgb 16.3 H (12.0-16.0) g/dl Hct 47.8 H (37.0-47.0) % MCV 95.2 (80.0-100.0) fL MCH 32.5 (25.0-34.0) pg MCHC 34.1 (32.0-36.0) g/dL RDW Std Deviation 48.7 H (36.4-46.3) fL RDW Coeff of Elli 13.8 (11.5-14.5) % Plt Count 245 (130-400) K/uL MPV 9.3 L (9.4-12.4) fL Immature Gran % (Auto) 0.3 % Neut % (Auto) 81.2 % Lymph % (Auto) 8.5 % [place] % (Auto) 9.0 % Eos % (Auto) 0.5 % Baso % (Auto) 0.5 % Neut # (Auto) 9.38 H (1.40-6.50) K/uL Lymph # (Auto) 0.98 L (1.2-3.4) K/uL [place] # (Auto) 1.04 H (0.11-0.59) K/uL Eos # (Auto) 0.06 (0-0.50) K/uL Baso # (Auto) 0.06 (0-0.2) K/uL Immature Gran # (Auto) 0.03 (0.01-0.20) K/uL Sodium 133 L (136-145) mmol/L Potassium 3.9 (3.5-5.1) mmol/L Chloride 96 L (98-107) mmol/L Carbon Dioxide 28 (21-32) mmol/L Anion Gap 9 (3-11) BUN 13 (6-23) mg/dl Creatinine 0.53 L (0.6-1.2) mg/dl Est Cr Clr Drug Dosing 99.5 ml/min Est GFR ( Amer) 101.1 ml/min Est GFR (Non-Af Amer) 87.2 ml/min BUN/Creatinine Ratio 24.5 H (10-20) Glucose 95 (70-99(Fasting)) mg/dl Calcium 9.0 (8.6-10.3) mg/dl Total Bilirubin 1.3 H (0.2-1.0) mg/dl AST 36 (13-39) U/L ALT 17 (7-52) U/L Alkaline Phosphatase 114 H (34-104) U/L Troponin I High Sens 58.9 H* (0-14) pg/ml Total Protein 6.2 (6.0-8.3) gm/dl Albumin 3.2 L (3.4-5.0) gm/dl Globulin 3.0 (2.5-4.0) gm/dl Albumin/Globulin Ratio 1.1 (0.9-2) Procalcitonin (0-0.5) ng/ml TSH (0.300-4.500) uIu/ml SARS-CoV-2, RNA, NAAT NEGATIVE (NEGATIVE) 04/03/23 04/03/23 Range/Units 01:18 01:18 WBC (4.8-10.8) K/ul RBC (4.20-5.40) M/uL Hgb (12.0-16.0) g/dl Hct (37.0-47.0) % MCV (80.0-100.0) fL MCH (25.0-34.0) pg MCHC (32.0-36.0) g/dL RDW Std Deviation (36.4-46.3) fL RDW Coeff of Elli (11.5-14.5) % Plt Count (130-400) K/uL MPV (9.4-12.4) fL Immature Gran % (Auto) % Neut % (Auto) % Lymph % (Auto) % [place] % (Auto) % Eos % (Auto) % Baso % (Auto) % Neut # (Auto) (1.40-6.50) K/uL Lymph # (Auto) (1.2-3.4) K/uL [place] # (Auto) (0.11-0.59) K/uL Eos # (Auto) (0-0.50) K/uL Baso # (Auto) (0-0.2) K/uL Immature Gran # (Auto) (0.01-0.20) K/uL Sodium (136-145) mmol/L Potassium (3.5-5.1) mmol/L Chloride (98-107) mmol/L Carbon Dioxide (21-32) mmol/L Anion Gap (3-11) BUN (6-23) mg/dl Creatinine (0.6-1.2) mg/dl Est Cr Clr Drug Dosing ml/min Est GFR ( Amer) ml/min Est GFR (Non-Af Amer) ml/min BUN/Creatinine Ratio (10-20) Glucose (70-99(Fasting)) mg/dl Calcium (8.6-10.3) mg/dl Total Bilirubin (0.2-1.0) mg/dl AST (13-39) U/L ALT (7-52) U/L Alkaline Phosphatase (34-104) U/L Troponin I High Sens (0-14) pg/ml Total Protein (6.0-8.3) gm/dl Albumin (3.4-5.0) gm/dl Globulin (2.5-4.0) gm/dl Albumin/Globulin Ratio (0.9-2) Procalcitonin 0.06 (0-0.5) ng/ml TSH 2.903 (0.300-4.500) uIu/ml SARS-CoV-2, RNA, NAAT (NEGATIVE) Administered Medications Atorvastatin Calcium (Atorvastatin 10 Mg Tab) 10 mg PO DAILY [facility] Stop: 05/03/23 08:59 Last Admin: 04/03/23 09:34 Dose: 10 mg Documented By: Fluticasone Furoate (Fluticasone Furoate 100mcg 14 Puffs/Inhaler) 1 puffs INH DAILY [facility] Stop: 05/03/23 08:59 Last Admin: 04/03/23 09:35 Dose: 1 puffs Documented By: Ceftriaxone Sodium 2,000 mg/ (Dextrose) 70 mls @ 100 mls/hr IV Q24H [facility]; Protocol Stop: 04/08/23 15:29 Last Infusion: 04/03/23 16:20 Dose: 0 mls/hr Documented By: Admin: 04/03/23 15:35 Dose: 100 mls/hr Documented By: Levothyroxine Sodium (Levothyroxine Sodium 100 Mcg Tablet) 100 mcg PO DAILYBB [facility] Stop: 05/03/23 06:44 Last Admin: 04/04/23 06:29 Dose: 100 mcg Documented By: Admin: 04/03/23 09:33 Dose: 100 mcg Documented By: Lisinopril (Lisinopril 2.5 Mg Tab) 2.5 mg PO DAILY [facility] Stop: 05/03/23 08:59 Last Admin: 04/03/23 09:34 Dose: 2.5 mg Documented By: Metoprolol Succinate (Metoprolol Succ 50mg Ext Rel Tab) 100 mg PO DAILY [facility] Stop: 05/03/23 08:59 Last Admin: 04/03/23 09:34 Dose: 100 mg Documented By: Discontinued Medications Aspirin (Aspirin 325 Mg Ectab) 325 mg PO NOW STA Stop: 04/03/23 03:31 Last Admin: 04/03/23 05:14 Dose: 325 mg Documented By: Heparin Sodium/Dextrose (Heparin Sodium/Dextrose) 25,000 units in 500 mls @ 19 mls/hr IV .Q24H [facility]; Protocol Stop: 05/03/23 03:59 Last Titration: 04/03/23 15:48 Dose: 0 units/hr, 0 mls/hr Documented By: Co-signed By: EVERARDO Titration: 04/03/23 07:18 Dose: 950 units/hr, 19 mls/hr Documented By: Co-signed By: ELANA Admin: 04/03/23 05:13 Dose: 950 units/hr, 19 mls/hr Documented By: Co-signed By: BRAYDEN Sodium Chloride (Nss 1000ml) 1,000 mls @ 100 mls/hr IV .Q10H [facility] Stop: 05/03/23 06:32 Last Admin: 04/03/23 19:23 Dose: Not Given Documented By: Infusion: 04/03/23 19:21 Dose: 0 mls/hr Documented By: Infusion: 04/03/23 17:22 Dose: 0 mls/hr Documented By: Admin: 04/03/23 08:17 Dose: 100 mls/hr Documented By: ENS Discharge Plan Visit Data Chief Complaint: Fall Stated Complaint: FALL BECAME TACHYPNEIC ED Provider: Jossie Veloz Discharge Problem: Elevated troponin, Fall, Sacral decubitus ulcer Patient Disposition: Admitted As Inpatient Discharge Instructions Interventions: ED Discharge Assessment Last Done: 04/03/23 06:01
--- NOTE | 2023-04-03 02:47 | History & Physical Report ---
Date of Service April 03, 2023 Assessment & Plan (1) Sacral decubitus ulcer, stage III: Plan: 82 yo female with PMHx afib, HLD, mixed restrictive /obstructive lung disease, CREST, complete heart block s/p pacemaker, hypothyroidism, and HTN presents for fall. #Elevated Troponin #H/o complete heart block s/p pacemaker -incidentally found on admission, trop 58, cont. to trend. Pt without chest pain or atypical symptoms. However, EKG with ST elevations in inferior leads. Follows with [facility] cardiology. -CXR with L pleural effusion. WBC 11. Procal wnl. -ASA 325mg given. Started on heparin drip. -lipid panel, a1c pending -echo ordered -cardiology consulted #Sacral decubitus ulcer -follows with wound care outpatient weekly -wound care consulted #Ambulatory dysfunction -pt unable to get after fall. Currently ambulating with walker. Developed decubitus ulcer as above. -Family in process of getting pt with [facility] -PT/OT ordered #HLD -cont. statin #Hypothyroidism -cont. synthroid #afib -hold eliquis while on heparin -cont. metoprolol #Mixed restrictive/obstructive lung disease -cont. pulmicort #HTN -cont. lisinopril, metoprolol DVT ppx: heparin gtt FEN/GI: NPO Code Status: Full Dispo: PCU (2) Elevated troponin: (3) Status post placement of cardiac pacemaker: (4) HTN (hypertension): (5) HLD (hyperlipidemia): (6) Hypothyroidism: (7) CREST variant of scleroderma: (8) Restrictive lung disease: (9) Afib: History of Present Illness Chief Complaint: fall Primary Care Provider: Rayray Villalta MD 82 yo female with PMHx afib, HLD, mixed restrictive /obstructive lung disease, CREST, complete heart block s/p pacemaker, hypothyroidism, and HTN presents for fall. Yesterday evening patient sat on the toilet before bed. Upon standing up her pants fell to her ankles and she figured she would walk to the sink with her pants still down. When approaching her walker she took a tumble onto her left shoulder and was unable to get up thereafter. She denies hitting her head. Denies headache, chest pain, shortness of breath, abdominal pain, dysuria, constipation, diarrhea, nausea, vomiting. Of note she has been seeing wound care once a week in the outpatient setting for a sacral decubitus ulcer. Family was in the process of getting patient set up with [facility]. Allergies Allergy/AdvReac Type Severity Reaction Status Date / Time Penicillins Allergy Intermediate RASH AND Verified 04/03/23 00:34 ITCHING ON TORSO. FRAGRANCE AdvReac Unknown Sneezing Uncoded 04/03/23 00:34 Home Medications Medication Instructions Recorded Confirmed Type levothyroxine 100 mcg tablet 100 mcg PO DAILY #90 tabs 04/21/22 04/03/23 Rx lisinopril 2.5 mg tablet 2.5 mg PO DAILY #90 tabs 05/26/22 04/03/23 Rx meloxicam 7.5 mg tablet 7.5 mg PO DAILY #90 tabs 05/26/22 04/03/23 Rx clobetasol 0.05 % topical ointment 1 g topical BID #60 grams 11/08/22 04/03/23 Rx apixaban 5 mg tablet (Eliquis) 5 mg PO BID #180 tabs 02/04/23 04/03/23 Rx collagenase clostridium histo. 250 1 applic topical 3XWK #30 grams 03/29/23 04/03/23 Rx unit/gram topical ointment (Santyl) atorvastatin 10 mg tablet 10 mg PO DAILY 04/03/23 04/03/23 History budesonide 180 mcg/actuation 2 inh inhalation DAILY 04/03/23 04/03/23 History breath activated powder inhaler (Pulmicort Flexhaler) metoprolol succinate 100 mg 100 mg PO DAILY 04/03/23 04/03/23 History tablet,extended release 24 hr Past Med/Surg History Medical History (Updated 04/03/23 @ 08:42 by Mode Gonzalez MD) Arthritis CREST variant of scleroderma Endometrial cancer HLD (hyperlipidemia) HTN (hypertension) Hx of pilonidal cyst resection Hypothyroidism [facility] (current) use of anticoagulants Morbid obesity with BMI of 40.0-44.9, adult Osteopenia Paroxysmal A-fib Partial small bowel obstruction Restrictive lung disease SBO (small bowel obstruction) Syncope Tachycardia Third degree heart block Surgical History H/O colonoscopy History of hysterectomy S/P partial hysterectomy S/P tonsillectomy Family History Father No problems noted. 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 AOx3. Vitals as above. HEENT: No scleral injection or discharge. Moist mucous membranes. Clear oropharynx. Neck: Supple without lymphadenopathy or thyromegaly. Trachea midline. No wheezes/rales/rhonchi. Lungs: Clear to auscultation bilaterally with good effort. Cardiac: Regular rate and rhythm. No murmurs. Bilateral non-pitting lower extremity edema. 2+ distal peripheral pulses. Abdomen: Bowel sounds present. Soft, nontender, and nondistended.No guarding. No hepatosplenomegaly. MSK: No cyanosis or clubbing. Skin: warm, dry. Sacral decubitus ulcer wrapped in bandage. Neurologic: no focal deficits Results & Data Results & Data Vital Signs (Past 12 Hours) Vital Signs Temp Pulse Resp BP Pulse Ox O2 Del Method O2 Flow Rate 04/03/23 02:30 85 29 H 93 Nasal Cannula 1.5 04/02/23 23:55 107 H 04/03/23 01:29 97 Nasal Cannula 1 04/02/23 23:55 91 Nasal Cannula 1 04/02/23 23:55 88 L Room Air 04/02/23 23:50 20 90 Room Air 04/02/23 23:35 37.3 C 107 H 20 103/67 98 Nasal Cannula 4 Laboratory Results Laboratory Results WBC 11.55 K/ul (4.8-10.8) H 04/03/23 01:18 RBC 5.02 M/uL (4.20-5.40) 04/03/23 01:18 Hgb 16.3 g/dl (12.0-16.0) H 04/03/23 01:18 Hct 47.8 % (37.0-47.0) H 04/03/23 01:18 MCV 95.2 fL (80.0-100.0) 04/03/23 01:18 MCH 32.5 pg (25.0-34.0) 04/03/23 01:18 MCHC 34.1 g/dL (32.0-36.0) 04/03/23 01:18 RDW Std Deviation 48.7 fL (36.4-46.3) H 04/03/23 01:18 RDW Coeff of Elli 13.8 % (11.5-14.5) 04/03/23 01:18 Plt Count 245 K/uL (130-400) 04/03/23 01:18 MPV 9.3 fL (9.4-12.4) L 04/03/23 01:18 Immature Gran % (Auto) 0.3 % 04/03/23 01:18 Neut % (Auto) 81.2 % 04/03/23 01:18 Lymph % (Auto) 8.5 % 04/03/23 01:18 [place] % (Auto) 9.0 % 04/03/23 01:18 Eos % (Auto) 0.5 % 04/03/23 01:18 Baso % (Auto) 0.5 % 04/03/23 01:18 Neut # (Auto) 9.38 K/uL (1.40-6.50) H 04/03/23 01:18 Lymph # (Auto) 0.98 K/uL (1.2-3.4) L 04/03/23 01:18 [place] # (Auto) 1.04 K/uL (0.11-0.59) H 04/03/23 01:18 Eos # (Auto) 0.06 K/uL (0-0.50) 04/03/23 01:18 Baso # (Auto) 0.06 K/uL (0-0.2) 04/03/23 01:18 Immature Gran # (Auto) 0.03 K/uL (0.01-0.20) 04/03/23 01:18 Sodium 133 mmol/L (136-145) L 04/03/23 01:18 Potassium 3.9 mmol/L (3.5-5.1) 04/03/23 01:18 Chloride 96 mmol/L (98-107) L 04/03/23 01:18 Carbon Dioxide 28 mmol/L (21-32) 04/03/23 01:18 Anion Gap 9 (3-11) 04/03/23 01:18 BUN 13 mg/dl (6-23) 04/03/23 01:18 Creatinine 0.53 mg/dl (0.6-1.2) L 04/03/23 01:18 Est Cr Clr Drug Dosing 99.5 ml/min 04/03/23 01:18 Est GFR ( Amer) 101.1 ml/min 04/03/23 01:18 Est GFR (Non-Af Amer) 87.2 ml/min 04/03/23 01:18 BUN/Creatinine Ratio 24.5 (10-20) H 04/03/23 01:18 Glucose 95 mg/dl (70-99(Fasting)) 04/03/23 01:18 Calcium 9.0 mg/dl (8.6-10.3) 04/03/23 01:18 Total Bilirubin 1.3 mg/dl (0.2-1.0) H 04/03/23 01:18 AST 36 U/L (13-39) 04/03/23 01:18 ALT 17 U/L (7-52) 04/03/23 01:18 Alkaline Phosphatase 114 U/L (34-104) H 04/03/23 01:18 Troponin I High Sens 58.9 pg/ml (0-14) H* 04/03/23 01:18 Total Protein 6.2 gm/dl (6.0-8.3) 04/03/23 01:18 Albumin 3.2 gm/dl (3.4-5.0) L 04/03/23 01:18 Globulin 3.0 gm/dl (2.5-4.0) 04/03/23 01:18 Albumin/Globulin Ratio 1.1 (0.9-2) 04/03/23 01:18 Procalcitonin 0.06 ng/ml (0-0.5) 04/03/23 01:18 TSH 2.903 uIu/ml (0.300-4.500) 04/03/23 01:18 SARS-CoV-2, RNA, NAAT NEGATIVE (NEGATIVE) 04/03/23 01:17 Supervising Physician Co-Signing Physician Notes Attending addendum: I have physically seen this patient, have supervised the medical residents activities, and agree with the H&P unless as otherwise noted. Assessment and Plan: Elevated troponin/atrial fibrillation/hypertension- The patient will be admitted to telemetry for serial cardiac enzymes, serial EKG's, cardiac rhythm monitoring and a 2-D echocardiogram with Dopplers. Troponin 58.9 on admission Continue metoprolol succinate 100 mg daily, lisinopril 2.5 mg daily and apixaban 5 mg twice daily Consult cardiology Sacral decubitus ulcer- Follows with wound care in the outpatient setting weekly Consult wound care in hospital Ambulatory dysfunction- Uses walker at home Consult PT/OT Hyperlipidemia- Continue atorvastatin Remaining orders and notations as noted Resident Activity Tracking Resident Involvement: Resident Care Provided Care Provided: Adult Hospital Medicine (4) HTN (hypertension) Hypertension type: essential hypertension Qualified Code(s): I10 - Essential (primary) hypertension
[2023-04-03] MEDS ORDERED: ASPIRIN 325 MG ECTAB PO STA (03:30)
[2023-04-03] MEDS ORDERED: Heparin IV Adult Wt-Based Low-Dose *NO* Bolus Protocol IV SCH (03:32)
[2023-04-03] MEDS ORDERED: HEPARIN SODIUM/DEXTROSE 25,000 UNITS/500 ML BAG IV SCH (04:00)
[2023-04-03 05:17] LABS: Basophils # (auto) 0.05 K/uL (0-0.2); Basophils % (auto) 0.4 %; Eosinophils # (auto) 0.08 K/uL (0-0.50); Eosinophils % (auto) 0.7 %; Hematocrit (blood only) 44.4 % (37.0-47.0); Hemoglobin 15.1 g/dl (12.0-16.0); Immature Granulocytes # (auto) 0.03 K/uL (0.01-0.20); Immature Granulocytes % (auto) 0.2 %; Lymphocytes # (auto) 1.58 K/uL (1.2-3.4); Lymphocytes % (auto) 12.8 %; Mean Corpuscular Hemoglobin 32.5 pg (25.0-34.0); Mean Corpuscular Volume 95.5 fL (80.0-100.0); Mean Platelet Volume 9.5 fL (9.4-12.4); Monocytes # (auto) 1.36 K/uL (0.11-0.59); Monocytes % (auto) 11.1 %; Neutrophils % (auto) 74.8 %; Platelet Count 245 K/uL (130-400); RDW Coefficient of Variation 14.1 % (11.5-14.5); RDW Standard Deviation 49.5 fL (36.4-46.3); Red Blood Count 4.65 M/uL (4.20-5.40)
[2023-04-03 06:12] LABS: INR 1.1 (0.9-1.1); Partial Thromboplastin Ratio 1.1; Partial Thromboplastin Time 31.7 Seconds (21.0-31.0); Prothrombin Time 12.4 Seconds (9.0-12.0)
[2023-04-03] MEDS ORDERED: ONDANSETRON 4 MG OD TAB PO PRN (06:33)
[2023-04-03] MEDS ORDERED: ACETAMINOPHEN 325 MG TAB PO PRN (06:33)
--- NOTE | 2023-04-03 07:11 | XRay Report ---
XR chest 1V portable CLINICAL HISTORY: weakness COMPARISON STUDY: Chest CT July 31, 2014. Chest radiograph September 09, 2020. FINDINGS: Left subclavian pacer is in place. There is no pneumothorax. Slight blunting of the right c ostophrenic angle. Moderate cardiomegaly is unchanged. There is no consolidation to suggest pneumonia . There is pulmonary vascular congestion without overt pulmonary edema. IMPRESSION: 1. Cardiomegaly with pulmonary vascular congestion. 2. Possible trace right pleural effusion. ACT 112: Negative or not required by law. Electronically signed by: Kwadwo Nogueira M.D. 04/03/2023 7:10 AM
[2023-04-03] MEDS: SODIUM CHLORIDE 0.9% 1000ML 1,000 ML IV SCH ×2 (08:17→19:23)
--- NOTE | 2023-04-03 08:38 | Cardiology Consultation ---
Date of Consultation April 03, 2023 Assessment & Plan (1) Fall: (2) Elevated troponin: (3) Afib: (4) Status post placement of cardiac pacemaker: (5) Third degree heart block: (6) HTN (hypertension): (7) HLD (hyperlipidemia): Plan 1. Fall: Her fall certainly sounds like a mechanical fall based on her history. It would be prudent to interrogate her pacemaker since she does have a history of arrhythmias to make sure that was not part of her presentation. 2. Elevated troponin: Her troponin is minimally elevated, I would not be surprised if she has coronary disease given her risk factors and age however with minimal elevation, no evidence of acute infarction and no symptoms I do not think invasive evaluation is warranted. Continued risk factor modification is warranted. 3. Paroxysmal atrial fibrillation: In the past she has had a low burden, but it is conceivable that this is part of her presentation although she is not in atrial fibrillation here. The device will track this. 4. Dual-chamber pacemaker: Her device has been working well so I do not suspect a device issue, however these can be sudden and we should interrogate the device. 5. Third degree heart block: She has intermittent complete heart block however the device should accommodate this rhythm but we will evaluate the device to make sure it is working properly. I doubt this is part of the issue.. 6. Hypertension: Her BP was somewhat elevated on presentation but this might be expected, otherwise it is well controlled. Continue current regimen. 7. Dyslipidemia: Continue statin therapy. History of Present Illness Reason for Consultation: Fall, elevated troponin Attending Physician: Harley Resendez MD History of Present Illness This is an 82-year-old woman with a history of paroxysmal atrial fibrillation, hypertension, dyslipidemia, and intermittent complete heart block. She presented to the ER at [facility] on 09/05/20 with recurrent syncope and was found to have intermittent episodes of complete heart block with variable ventricular escape rhythm. She underwent placement of a transvenous temporary pacemaker that night and then underwent implantation of dual-chamber permanent pacemaker on 09/08/20. Her pacemaker is followed by Dr. Palumbo in the office, he saw her January 22, 2022 and she was doing well and her pacemaker was working properly. She was also seen by Milvia Joyce on February 14, 2023 for pacemaker evaluation, she did have atrial fibrillation identified (burden 6%) as well as brief episodes of nonsustained ventricular tachycardia and pacing in the ventricle only 6% of the time. She presents now to the emergency room having had a fall. Evidently she was trying to get dressed after going to the bathroom and fell over in the bathroom landing on her left shoulder. She does have ambulatory difficulty and is being seen by wound clinic (most recently 5 days ago) for sacral pressure ulcers. I did discuss this fall with her and based on symptoms it does not sound as though there were any hemodynamic issues to cause a fall, but sometimes that is not obvious. She has had no other lightheadedness, dizziness, palpitations, presyncope or syncope since pacemaker implantation. On presentation here following her fall she was noted to have a minimally elevated troponin to 58.9 with a follow-up 3 hours later of 69.4. Her electrocardiogram shows sinus rhythm with a bifascicular block (right bundle branch block and left anterior fascicular block) with no acute changes although difficult due to read for ischemia due to the conduction abnormality. Allergies Allergy/AdvReac Type Severity Reaction Status Date / Time Penicillins Allergy Intermediate RASH AND Verified 04/03/23 00:34 ITCHING ON TORSO. FRAGRANCE AdvReac Unknown Sneezing Uncoded 04/03/23 00:34 Home Medications Medication Instructions Recorded Confirmed Type levothyroxine 100 mcg tablet 100 mcg PO DAILY #90 tabs 04/21/22 04/03/23 Rx lisinopril 2.5 mg tablet 2.5 mg PO DAILY #90 tabs 05/26/22 04/03/23 Rx meloxicam 7.5 mg tablet 7.5 mg PO DAILY #90 tabs 05/26/22 04/03/23 Rx clobetasol 0.05 % topical ointment 1 g topical BID #60 grams 11/08/22 04/03/23 Rx apixaban 5 mg tablet (Eliquis) 5 mg PO BID #180 tabs 02/04/23 04/03/23 Rx collagenase clostridium histo. 250 1 applic topical 3XWK #30 grams 03/29/23 04/03/23 Rx unit/gram topical ointment (Santyl) atorvastatin 10 mg tablet 10 mg PO DAILY 04/03/23 04/03/23 History budesonide 180 mcg/actuation 2 inh inhalation DAILY 04/03/23 04/03/23 History breath activated powder inhaler (Pulmicort Flexhaler) metoprolol succinate 100 mg 100 mg PO DAILY 04/03/23 04/03/23 History tablet,extended release 24 hr Patient History Medical History (Updated 04/03/23 @ 08:42 by Mode Gonzalez MD) Arthritis CREST variant of scleroderma Endometrial cancer HLD (hyperlipidemia) HTN (hypertension) Hx of pilonidal cyst resection Hypothyroidism custodial (current) use of anticoagulants Morbid obesity with BMI of 40.0-44.9, adult Osteopenia Paroxysmal A-fib Partial small bowel obstruction Restrictive lung disease SBO (small bowel obstruction) Syncope Tachycardia Third degree heart block Surgical History H/O colonoscopy History of hysterectomy S/P partial hysterectomy S/P tonsillectomy Family History Father No problems noted. Mother Congestive heart failure Breast cancer Other Family history non-contributory Social History (Updated 03/29/23 @ 10:46 by Loren Alcaraz RN) Smoking Status: Never smoker Tobacco Type: Cigarettes Second Hand Exposure: No; Do You Dip or Chew Tobacco: No; Tobacco Cessation Education Requested by Patient: No Hx Alcohol Use: Yes (1-2 glasses daily) Alcohol type: wine Alcohol Intake Frequency: 4 or More x per/Week Hx Substance Use: No Preferred Language: Hong Konger Communication Ability: Effective Visual Impairment: No Limitations Hearing Ability: Normal Machining Associate Required: No Beliefs That Will Affect Care: None Current Living Situation: Alone 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 She is laying supine in bed. HEENT: Unremarkable Neck: No jugular venous distention, carotid pulses are normal and equal bilaterally without bruits. Pulmonary: Clear to auscultation bilaterally. Cardiac: Regular rhythm with no murmur, gallop or rub. Abdomen: Soft, nontender with normal bowel sounds. Extremities: The skin in her legs is scaly and she has signs of chronic venous stasis. Neurologic: No focal findings. Gait was not tested. Skin: The device site is well-healed without erythema, swelling or tenderness. No rash, ecchymoses or petechiae. Results & Data Vital Signs (Past 12 Hours) Vital Signs Temp Pulse Pulse Resp BP BP Pulse Ox 04/03/23 07:57 88 04/03/23 06:49 04/03/23 06:27 36.5 C 79 18 123/72 92 04/03/23 06:01 04/03/23 05:00 102 H 20 90 04/03/23 05:00 142/70 H 04/03/23 04:00 98 H 26 H 95 04/03/23 04:00 103/62 04/03/23 03:44 81 04/03/23 03:16 117/61 04/03/23 03:16 100 H 20 93 04/03/23 02:30 85 29 H 93 04/02/23 23:55 107 H 04/03/23 01:29 97 04/02/23 23:55 91 04/02/23 23:55 88 L 04/02/23 23:50 20 90 04/02/23 23:35 37.3 C 107 H 20 103/67 98 O2 Del Method O2 Flow Rate 04/03/23 07:57 04/03/23 06:49 Nasal Cannula 2 04/03/23 06:27 Nasal Cannula 2 04/03/23 06:01 Room Air 04/03/23 05:00 Room Air 04/03/23 05:00 04/03/23 04:00 Nasal Cannula 1 04/03/23 04:00 04/03/23 03:44 04/03/23 03:16 04/03/23 03:16 Nasal Cannula 1.5 04/03/23 02:30 Nasal Cannula 1.5 04/02/23 23:55 04/03/23 01:29 Nasal Cannula 1 04/02/23 23:55 Nasal Cannula 1 04/02/23 23:55 Room Air 04/02/23 23:50 Room Air 04/02/23 23:35 Nasal Cannula 4 Laboratory Results Cardiac Enzymes 04/03/23 04/03/23 Range/Units 01:18 04:11 AST 36 (13-39) U/L Troponin I High Sens 58.9 H* 69.4 H* D (0-14) pg/ml Coagulation 04/03/23 Range/Units 05:31 PT 12.4 H (9.0-12.0) Seconds APTT 31.7 H (21.0-31.0) Seconds CBC 04/03/23 04/03/23 Range/Units 01:18 05:00 WBC 11.55 H 12.30 H (4.8-10.8) K/ul RBC 5.02 4.65 (4.20-5.40) M/uL Hgb 16.3 H 15.1 (12.0-16.0) g/dl Hct 47.8 H 44.4 (37.0-47.0) % Plt Count 245 245 (130-400) K/uL Neut # (Auto) 9.38 H 9.20 H (1.40-6.50) K/uL Lymph # (Auto) 0.98 L 1.58 (1.2-3.4) K/uL Owen # (Auto) 1.04 H 1.36 H (0.11-0.59) K/uL Eos # (Auto) 0.06 0.08 (0-0.50) K/uL Baso # (Auto) 0.06 0.05 (0-0.2) K/uL Comprehensive Metabolic Panel 04/03/23 Range/Units 01:18 Sodium 133 L (136-145) mmol/L Potassium 3.9 (3.5-5.1) mmol/L Chloride 96 L (98-107) mmol/L Carbon Dioxide 28 (21-32) mmol/L BUN 13 (6-23) mg/dl Creatinine 0.53 L (0.6-1.2) mg/dl Glucose 95 (70-99(Fasting)) mg/dl Calcium 9.0 (8.6-10.3) mg/dl AST 36 (13-39) U/L ALT 17 (7-52) U/L Alkaline Phosphatase 114 H (34-104) U/L Total Protein 6.2 (6.0-8.3) gm/dl Albumin 3.2 L (3.4-5.0) gm/dl Intake and Output 04/02/23 04/03/2304/03/23 22:59 06:59 14:59 Intake Total 39.583 / 39.583 Balance 39.583 / 39.583 Intake: IV 39.583 / 39.583 Heparin Sodium/Dextrose 25,000 39.583 / 39.583 units In 500 ml @ 950 UNITS/HR 19 mls/hr IV .Q24H SONIDO Rx#: [id number] Other: Weight 110.5 kg Weight Measurement Method Built in [facility] Diagnostic Findings Telemetry: Sinus rhythm, no significant arrhythmia. Echocardiogram: Left ventricular function appears normal. Full interpretation pending. PG Care Time/CCT Total # of Minutes Spent Total Time Spent with Patient: Total time spent is greater than 50% in coordination of care (as documented) at patient's floor/unit and/or counseling patient: Coding Level of Care Code 13316 INT INP/OBS CARE 3/75MIN Diagnoses Fall W19.XXXA Encounter type: initial encounter Elevated troponin R77.8 Afib I48.0 Atrial fibrillation type: paroxysmal Status post placement of cardiac pacemaker Z95.0 Third degree heart block I44.2 HTN (hypertension) I10 Hypertension type: essential hypertension HLD (hyperlipidemia) E78.5 (1) Fall Encounter type: initial encounter Qualified Code(s): W19.XXXA - Unspecified fall, initial encounter (3) Afib Atrial fibrillation type: paroxysmal Qualified Code(s): I48.0 - Paroxysmal atrial fibrillation (6) HTN (hypertension) Hypertension type: essential hypertension Qualified Code(s): I10 - Essential (primary) hypertension
[2023-04-03] MEDS: LEVOTHYROXINE SODIUM 100 MCG TABLET PO SCH (09:33)
[2023-04-03] MEDS: ATORVASTATIN 10 MG TAB PO SCH (09:34)
[2023-04-03] MEDS: lisinopril 2.5 MG TAB PO SCH (09:34)
[2023-04-03] MEDS: METOPROLOL SUCC 50MG EXT REL TAB PO SCH (09:34)
[2023-04-03] MEDS: FLUTICASONE FUROATE 100MCG 14 PUFFS/INHALER INH SCH (09:35)
[2023-04-03] MEDS ORDERED: MICONAZOLE NITRATE POWDER 85 GM EXT PRN (09:46)
[2023-04-03 10:24] LABS: Appearance Urine Cloudy (Clear); Bilirubin Urine 1+ (Negative); Blood Urine 3+ (Negative); Color Urine Brown; Glucose Urine UA Negative (Negative); Ketones Urine Negative (Negative); Leukocyte Esterase Urine Negative (Negative); Nitrite Urine Positive (Negative); Protein Urine 2+ (Negative); Urobilinogen Urine Positive (Negative); pH Urine 5.5 (4.5-7.5)
[2023-04-03 10:32] LABS: Bacteria Urine 4+ (Negative); RBC Urine >30 /hpf (0-4)
[2023-04-03 10:33] LABS: Epithelial Cell Urine 20-30 /lpf (0-5)
[2023-04-03 12:27] LABS: Partial Thromboplastin Ratio 1.6
[2023-04-03 12:29] LABS: Partial Thromboplastin Time 46.3 Seconds (21.0-31.0)
[2023-04-03] MEDS: cefTRIAXone SODIUM 2,000 MG in DEXTROSE 5% 50 ML IV SCH (15:35)
--- NOTE | 2023-04-03 17:18 | Hospitalist Progress Note ---
Date of Service April 03, 2023 Assessment & Plan (1) Fall: (2) Sacral decubitus ulcer: (3) Left shoulder pain: (4) Elevated troponin: (5) UTI (urinary tract infection): (6) Status post placement of cardiac pacemaker: (7) HTN (hypertension): (8) HLD (hyperlipidemia): (9) Hypothyroidism: (10) CREST variant of scleroderma: (11) Restrictive lung disease: (12) Morbid obesity with BMI of 40.0-44.9, adult: (13) Paroxysmal A-fib: (14) Hematuria: Plan start rocephin 2gm IV daily for UTI follow culture fall - x-rays of L shoulder, r/o fracture; PT/OT evals needed by report family had been making preparations for her to enter [facility]? stop IVF stop heparin infusion if hematuria stops overnight resume Eliquis in am hematuria likely 2nd to UTI? left message for pt's daughter - Irene Romero - on her voicemail this evening Admission and Anticipated Discharge Date Admission Date: April 03, 2023 Subjective patient resting comfortably in bed c/o mild L shoulder pain when she fell at home she bumped her L shoulder into the wall, then slid down the wall and fell to the ground zamorano was placed earlier today due to LUTS there is blood in the zamorano bag eating ok urine had malodorous smell at home the last few days but no fever normally does not use O2 or CPAP/BIPAP at home Physical Exam Physical Exam: gen - morbidly obese, NAD mouth - MMM neck - no JVD heart - RRR, s1 s2 lungs - CTA b/l abd - soft NT ND BS+ ext - severely dry skin on legs with erythematous toes x 10; skin on shins is scaly and flaking; 1+ edema b/l; pulses 2+ b/l musculo - left shoulder - mild pain with passive ROM, no deformity Results & Data Results & Data Vital Signs (Past 12 Hours) Vital Signs Temp Pulse Pulse Resp BP Pulse Ox O2 Del Method 04/03/23 15:26 90 04/03/23 11:04 36.3 C L 74 19 125/63 96 Nasal Cannula 04/03/23 07:57 88 04/03/23 06:49 Nasal Cannula 04/03/23 06:27 36.5 C 79 18 123/72 92 Nasal Cannula 04/03/23 06:01 Room Air O2 Flow Rate 04/03/23 15:26 04/03/23 11:04 2 04/03/23 07:57 04/03/23 06:49 2 04/03/23 06:27 2 04/03/23 06:01 PG Care Time/CCT Total # of Minutes Spent Total Time Spent with Patient: Total time spent is greater than 50% in coordination of care (as documented) at patient's floor/unit and/or counseling patient: Coding Level of Care Code None Diagnoses Fall W19.XXXA Encounter type: initial encounter Sacral decubitus ulcer L89.159 Pressure injury stage: unspecified pressure injury stage Left shoulder pain M25.512 Elevated troponin R77.8 UTI (urinary tract infection) N39.0 Status post placement of cardiac pacemaker Z95.0 HTN (hypertension) I10 Hypertension type: essential hypertension HLD (hyperlipidemia) E78.5 Hypothyroidism E03.9 CREST variant of scleroderma M34.1 Restrictive lung disease J98.4 Morbid obesity with BMI of 40.0-44.9, adult E66.01; Z68.41 Paroxysmal A-fib I48.0 Hematuria R31.9 (1) Fall Encounter type: initial encounter Qualified Code(s): W19.XXXA - Unspecified fall, initial encounter (2) Sacral decubitus ulcer Pressure injury stage: unspecified pressure injury stage Qualified Code(s): L89.159 - Pressure ulcer of sacral region, unspecified stage (7) HTN (hypertension) Hypertension type: essential hypertension Qualified Code(s): I10 - Essential (primary) hypertension
--- NOTE | 2023-04-03 17:42 | XCELERA ---
[id number]
--- NOTE | 2023-04-03 19:13 | XRay Report ---
XR shoulder LT min 2V routine CLINICAL HISTORY: Left shoulder pain following fall. Evaluate for fracture. COMPARISON: None FINDINGS: Left subclavian pacemaker is partially imaged. Alignment of the left shoulder is anatomic. There is no acute fracture. Severe AC joint osteoarthritis is present. There is mild glenohumeral deandra int osteoarthritis. IMPRESSION: 1. No acute fracture or dislocation within the left shoulder. 2. Severe left AC joint osteoarthritis. Mild left glenohumeral joint osteoarthritis. ACT 112: Negative or not required by law. Electronically signed by: Kwadwo Nogueira M.D. 04/03/2023 7:11 PM
--- NOTE | 2023-04-04 03:34 | Billing Data ---
Date of Service April 04, 2023 Coding Level of Care Code 64497 INT INP/OBS CARE
[2023-04-04] MEDS: LEVOTHYROXINE SODIUM 100 MCG TABLET PO SCH (06:29)
[2023-04-04 07:27] LABS: Hematocrit (blood only) 45.7 % (37.0-47.0); Hemoglobin 15.4 g/dl (12.0-16.0); Mean Corpuscular Hemoglobin 32.8 pg (25.0-34.0); Mean Corpuscular Hgb Conc 33.7 g/dL (32.0-36.0); Mean Corpuscular Volume 97.4 fL (80.0-100.0); Mean Platelet Volume 9.6 fL (9.4-12.4); Platelet Count 255 K/uL (130-400); RDW Coefficient of Variation 14.2 % (11.5-14.5); Red Blood Count 4.69 M/uL (4.20-5.40); White Blood Count 8.93 K/ul (4.8-10.8)
[2023-04-04 07:54] LABS: BUN Creatinine Ratio 17.9 (10-20); Calcium 8.5 mg/dl (8.6-10.3); Creatinine Clr Calc Pharmacy 137.2 ml/min; Est GFR (African American) 111.8 ml/min; Est GFR (Non-African American) 96.4 ml/min
[2023-04-04] MEDS: ATORVASTATIN 10 MG TAB PO SCH (08:00)
[2023-04-04] MEDS: METOPROLOL SUCC 50MG EXT REL TAB PO SCH (08:00)
[2023-04-04] MEDS: lisinopril 2.5 MG TAB PO SCH (08:01)
[2023-04-04] MEDS: FLUTICASONE FUROATE 100MCG 14 PUFFS/INHALER INH SCH (08:01)
[2023-04-04] MEDS: cefTRIAXone SODIUM 2,000 MG in DEXTROSE 5% 50 ML IV SCH (14:54)
--- NOTE | 2023-04-04 20:28 | Hospitalist Progress Note ---
Date of Service April 04, 2023 Assessment & Plan (1) Fall: Plan: fortunately no injuries from her fall at home left shoulder x-rays negative for fracture; severe OA noted PT, OT needs placement fall was accidental no pre-syncope or syncope prior to the fall pacer interrogation ordered --> pending results (2) Sacral decubitus ulcer: Plan: wound care consultation (3) Left shoulder pain: Plan: x-rays neg for fracture contusion 2nd to fall tylenol prn (4) Elevated troponin: Plan: peak HS troponin 69 no evidence of ACS no ischemic symptoms prior to this admission likely myocardial demand ischemia in the setting of her fall + UTI (5) UTI (urinary tract infection): Plan: 2nd GNR cont rocephin follow urine cx to completion had gross hematuria yesterday in zamorano bag --> now resolved (6) Status post placement of cardiac pacemaker: Plan: seen by Dr Gonzalez this weekend pacer interrogation ordered no cardiac symptoms while here tele stable (7) HTN (hypertension): Plan: controlled cont lisinopril 2.5mg daily cont metoprolol succinate 100mg daily (8) HLD (hyperlipidemia): Plan: cont statin (9) Hypothyroidism: Plan: TSH 2.9 cont synthroid (10) CREST variant of scleroderma: Plan: noted no dysphagia no pulmonary symptoms at this time (11) Restrictive lung disease: Plan: 2nd to obesity? does she have developing ILD/PF from scleroderma causing restriction? she continues on small amount of NC O2 consider high resolution CT chest w/o contrast follows with Dr Rayray Villalta with [facility] Pulm/allergy (12) Morbid obesity with BMI of 40.0-44.9, adult: (13) Paroxysmal A-fib: Plan: pacer interrogation pending no a.fib seen while here had been on heparin drip --> was stopped yesterday due to gross hematuria if gross hematuria remains resolved then resume Eliquis 5mg BID (14) Hematuria: Plan: likely was 2nd to UTI (+/- zamorano trauma) has resolved Plan left message for pt's daughter - Irene Romero - on her voicemail yesterday evening dispo - [facility] Admission and Anticipated Discharge Date Admission Date: April 03, 2023 Subjective patient resting in bed comfortably about to eat her meal c/o fatigue and weakness urine in zamorano bag today more clear - no gross hematuria like yesterday still requiring a small amount of oxygen but she denies any dyspnea tele stable overnight Review of Systems Review of Systems: gen - no fevers or chills; appetite fair-good cv - no orthopnea pulm - no dyspnea at rest GI - no abd pain or nausea/emesis Physical Exam Physical Exam: gen - obese, NAD, lying comfortably in bed mouth - MMM neck - no JVD heart - RRR, s1 s2, no murmur lungs - CTA b/l abd - soft NT ND BS+ ext - severe stasis dermatitis/hyperpigmentation of shins; pulses 2+ b/l; 1+ edema b/l skin - all 10 toes erythematous; background of mild pink skin b/l shins but no warmth; patient states her legs look the way they are chronically at home Results & Data Results & Data Vital Signs (Past 12 Hours) Vital Signs Temp Pulse Pulse Pulse Resp BP Pulse Ox 04/04/23 19:43 36.7 C 77 18 119/61 94 04/04/23 16:10 72 04/04/23 14:51 36.6 C 71 18 113/64 97 04/04/23 11:12 36.5 C 78 19 106/63 94 04/04/23 10:37 Pulse Ox Pulse Ox O2 Del Method O2 Flow Rate O2 Flow Rate 04/04/23 19:43 Room Air 04/04/23 16:10 04/04/23 14:51 Nasal Cannula 2 04/04/23 11:12 Nasal Cannula 2 04/04/23 10:37 90 87 L 2 Laboratory Results Laboratory Results - last 24 hr 04/04/23 04/04/23 04/04/23 06:26 06:26 06:26 WBC 8.93 RBC 4.69 Hgb 15.4 Hct 45.7 MCV 97.4 MCH 32.8 MCHC 33.7 RDW Std Deviation 51.0 H RDW Coeff of Elli 14.2 Plt Count 255 MPV 9.6 Sodium 135 L Potassium 4.0 Chloride 98 Carbon Dioxide 31 Anion Gap 6 BUN 7 Creatinine 0.39 L Est Cr Clr Drug Dosing 137.2 Est GFR ( Amer) 111.8 Est GFR (Non-Af Amer) 96.4 BUN/Creatinine Ratio 17.9 Glucose 87 Calcium 8.5 L Vitamin B12 435 Diagnostic Findings urine cx - GNR, >100,000 CFU PG Care Time/CCT Total # of Minutes Spent Total Time Spent with Patient: Total time spent is greater than 50% in coordination of care (as documented) at patient's floor/unit and/or counseling patient: Coding Level of Care Code 65852 SUB INP/OBS CARE 2/35MIN Diagnoses Fall W19.XXXA Encounter type: initial encounter Sacral decubitus ulcer L89.159 Pressure injury stage: unspecified pressure injury stage Left shoulder pain M25.512 Elevated troponin R77.8 UTI (urinary tract infection) N39.0 Status post placement of cardiac pacemaker Z95.0 HTN (hypertension) I10 Hypertension type: essential hypertension HLD (hyperlipidemia) E78.5 Hypothyroidism E03.9 CREST variant of scleroderma M34.1 Restrictive lung disease J98.4 Morbid obesity with BMI of 40.0-44.9, adult E66.01; Z68.41 Paroxysmal A-fib I48.0 Hematuria R31.9 (1) Fall Encounter type: initial encounter Qualified Code(s): W19.XXXA - Unspecified fall, initial encounter (2) Sacral decubitus ulcer Pressure injury stage: unspecified pressure injury stage Qualified Code(s): L89.159 - Pressure ulcer of sacral region, unspecified stage (7) HTN (hypertension) Hypertension type: essential hypertension Qualified Code(s): I10 - Essential (primary) hypertension
[2023-04-05] MEDS: LEVOTHYROXINE SODIUM 100 MCG TABLET PO SCH (06:26)
--- NOTE | 2023-04-05 07:54 | Electrocardiogram Report ---
Test Reason : Blood Pressure : / mmHG Vent. Rate : 088 BPM Atrial Rate : 088 BPM P-R Int : 262 ms QRS Dur : 122 ms QT Int : 392 ms P-R-T Axes : 058 -70 069 degrees QTc Int : 474 ms Sinus rhythm with 1st degree A-V block with frequent Premature ventricular complexes Left axis deviation Right bundle branch block Possible Lateral infarct (cited on or before 05-SEP-2020) Inferior infarct (cited on or before 05-SEP-2020) Abnormal ECG When compared with ECG of 08-SEP-2020 10:54, Premature ventricular complexes are now Present Confirmed by Mode Gonzalez ([id number]) on 04/05/2023 7:54:05 AM Referred By: REFERRED SELF Confirmed By:Mode Gonzalez
[2023-04-05] MEDS: lisinopril 2.5 MG TAB PO SCH (08:04)
[2023-04-05] MEDS: ATORVASTATIN 10 MG TAB PO SCH (08:04)
[2023-04-05] MEDS: METOPROLOL SUCC 50MG EXT REL TAB PO SCH (08:04)
[2023-04-05] MEDS: FLUTICASONE FUROATE 100MCG 14 PUFFS/INHALER INH SCH (08:04)
--- NOTE | 2023-04-05 09:40 | XRay Report ---
XR chest 1V portable CLINICAL HISTORY: Shortness of breath. Cough. COMPARISON STUDY: Chest radiograph April 03, 2023. FINDINGS: Left subclavian pacemaker is in place. There is no pneumothorax or pleural effusion. Cardio megaly is unchanged. No evidence for pulmonary edema. Opacity along the right heart border favors epi cardial fat pad. This is unchanged. No consolidation to suggest pneumonia. IMPRESSION: No acute cardiopulmonary findings. ACT 112: Negative or not required by law. Electronically signed by: Kwadwo Nogueira M.D. 04/05/2023 9:37 AM
[2023-04-05] MEDS ORDERED: ALBUT/IPRATROP 3MG/0.5MG NEB 3 ML VIAL NEB PRN (14:27)
[2023-04-05] MEDS ORDERED: FUROSEMIDE 40 MG/4 ML VIAL IV ONE (14:27)
--- NOTE | 2023-04-05 14:33 | Hospitalist Progress Note ---
Date of Service April 05, 2023 Assessment & Plan (1) UTI (urinary tract infection): Plan: Urinalysis positive for UTI Cultures growing E Coli pansensitive Continue Ceftriaxone IV (2) Fall: Plan: she fell on her left shoulder No evidence of fracture or dislocation continue PT (3) Sacral decubitus ulcer: Plan: Present on admission continue wound care patient follows wound care outpatient (4) Left shoulder pain: Plan: No evidence of fracture or dislocation on X ray Only signs of osteoarthritis PRN Tylenol (5) Restrictive lung disease: Plan: Not on oxygen at home, however, SOB could be due to Pulm edema as seen on chest x ray will give one dose of lasix continue duonebs PRN wean oxygen as tolerated (6) Elevated troponin: (7) Status post placement of cardiac pacemaker: Plan: Pacemaker interrogated and working well (8) HTN (hypertension): (9) HLD (hyperlipidemia): (10) Hypothyroidism: (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 Physical Exam Physical Exam: The patient is awake, alert and oriented 3, well developed and well nourished, normocephalic and atraumatic, lying in bed and in no acute distress. HEENT--PERRL, EOMI, mucous membranes and oropharynx mildly dry Neck--supple. No JVD. No bruits. Thyroid normal, trachea midline, no adenopathy. Heart--normal S1 and S2. No murmurs, rubs or gallops. Lungs--reduced air entry on ausculataion Abdomen--normal bowel sounds and soft. Mild epigastric and left sided abdominal pain Extremities--no cyanosis or clubbing. No edema. Dermatologic--normal skin turgor, normal color, no abnormal lymph nodes, no rash. Neurologic--cranial nerves II through XII grossly intact. Rheumatologic--normal range of motion. Psychiatric--normal affect. Results & Data Results & Data Vital Signs (Past 12 Hours) Vital Signs Temp Pulse Pulse Resp BP Pulse Ox O2 Del Method 04/05/23 11:11 97.3 F L 74 22 120/71 99 Nasal Cannula 04/05/23 07:50 82 04/05/23 07:50 Nasal Cannula 04/05/23 07:50 98.4 F 66 20 128/80 93 Nasal Cannula 04/05/23 04:09 97.9 F 69 18 146/80 H 92 Nasal Cannula O2 Flow Rate 04/05/23 11:11 5.0 04/05/23 07:50 04/05/23 07:50 2 04/05/23 07:50 2.0 04/05/23 04:09 2 PG Care Time/CCT Total # of Minutes Spent Total Time Spent with Patient: Total time spent is greater than 50% in coordination of care (as documented) at patient's floor/unit and/or counseling patient: Coding Level of Care Code 02390 SUB INP/OBS CARE 2/35MIN Diagnoses UTI (urinary tract infection) N39.0 Fall W19.XXXA Encounter type: initial encounter Sacral decubitus ulcer L89.159 Pressure injury stage: unspecified pressure injury stage Left shoulder pain M25.512 Restrictive lung disease J98.4 Elevated troponin R77.8 Status post placement of cardiac pacemaker Z95.0 HTN (hypertension) I10 Hypertension type: essential hypertension HLD (hyperlipidemia) E78.5 Hypothyroidism E03.9 CREST variant of scleroderma M34.1 Morbid obesity with BMI of 40.0-44.9, adult E66.01; Z68.41 Paroxysmal A-fib I48.0 Hematuria R31.9 Time Spent (min) 35 (2) Fall Encounter type: initial encounter Qualified Code(s): W19.XXXA - Unspecified fall, initial encounter (3) Sacral decubitus ulcer Pressure injury stage: unspecified pressure injury stage Qualified Code(s): L89.159 - Pressure ulcer of sacral region, unspecified stage (8) HTN (hypertension) Hypertension type: essential hypertension Qualified Code(s): I10 - Essential (primary) hypertension
[2023-04-05] MEDS: cefTRIAXone SODIUM 2,000 MG in DEXTROSE 5% 50 ML IV SCH (16:02)
[2023-04-05] MEDS: APIXABAN 5 MG TABLET PO SCH (20:20)
[2023-04-06] MEDS: LEVOTHYROXINE SODIUM 100 MCG TABLET PO SCH (06:20)
[2023-04-06 09:03] LABS: Hemoglobin 15.1 g/dl (12.0-16.0); Mean Corpuscular Hemoglobin 32.3 pg (25.0-34.0); Mean Corpuscular Hgb Conc 33.6 g/dL (32.0-36.0); Mean Corpuscular Volume 96.2 fL (80.0-100.0); Mean Platelet Volume 9.4 fL (9.4-12.4); Platelet Count 265 K/uL (130-400); RDW Coefficient of Variation 13.8 % (11.5-14.5); RDW Standard Deviation 48.9 fL (36.4-46.3); Red Blood Count 4.68 M/uL (4.20-5.40); White Blood Count 8.05 K/ul (4.8-10.8)
[2023-04-06 09:19] LABS: Calcium 8.8 mg/dl (8.6-10.3); Creatinine Clr Calc Pharmacy 135.1 ml/min; Est GFR (African American) 110.9 ml/min; Est GFR (Non-African American) 95.6 ml/min
[2023-04-06] MEDS: ATORVASTATIN 10 MG TAB PO SCH (09:21)
[2023-04-06] MEDS: METOPROLOL SUCC 50MG EXT REL TAB PO SCH (09:22)
[2023-04-06] MEDS: APIXABAN 5 MG TABLET PO SCH ×2 (09:22→19:57)
[2023-04-06] MEDS: FLUTICASONE FUROATE 100MCG 14 PUFFS/INHALER INH SCH (09:22)
[2023-04-06] MEDS: lisinopril 2.5 MG TAB PO SCH (09:22)
--- NOTE | 2023-04-06 14:16 | Hospitalist Progress Note ---
Date of Service April 06, 2023 Assessment & Plan (1) UTI (urinary tract infection): Plan: Urinalysis positive for UTI Cultures growing E Coli pansensitive Transition to Po Ciprofloxacin (2) Fall: Plan: she fell on her left shoulder No evidence of fracture or dislocation continue PT (3) Sacral decubitus ulcer: Plan: Present on admission continue wound care patient follows wound care outpatient (4) Left shoulder pain: Plan: No evidence of fracture or dislocation on X ray Only signs of osteoarthritis PRN Tylenol (5) Restrictive lung disease: Plan: Not on oxygen at home, however, SOB could be due to Pulm edema as seen on chest x ray will give one dose of lasix continue duonebs PRN wean oxygen as tolerated (6) Status post placement of cardiac pacemaker: Plan: Pacemaker interrogated and working well (7) HTN (hypertension): Plan: BP under good control, on Lisinopril (8) Elevated troponin: (9) HLD (hyperlipidemia): (10) Hypothyroidism: (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 Physical Exam Physical Exam: The patient is awake, alert and oriented 3, well developed and well nourished, normocephalic and atraumatic, lying in bed and in no acute distress. HEENT--PERRL, EOMI, mucous membranes and oropharynx mildly dry Neck--supple. No JVD. No bruits. Thyroid normal, trachea midline, no adenopathy. Heart--normal S1 and S2. No murmurs, rubs or gallops. Lungs--reduced air entry on ausculataion Abdomen--normal bowel sounds and soft. Mild epigastric and left sided abdominal pain Extremities--no cyanosis or clubbing. No edema. Dermatologic--normal skin turgor, normal color, no abnormal lymph nodes, no rash. Neurologic--cranial nerves II through XII grossly intact. Rheumatologic--normal range of motion. Psychiatric--normal affect. Results & Data Results & Data Vital Signs (Past 12 Hours) Vital Signs Temp Pulse Pulse Resp BP Pulse Ox O2 Del Method 04/06/23 09:20 Nasal Cannula 04/06/23 11:23 98.1 F 67 20 131/72 99 Nasal Cannula 04/06/23 05:54 58 L 04/06/23 07:27 98.4 F 73 20 101/66 93 Nasal Cannula 04/06/23 02:58 97.9 F 68 20 110/81 97 Nasal Cannula O2 Flow Rate 04/06/23 09:20 3 04/06/23 11:23 3.0 04/06/23 05:54 04/06/23 07:27 3.0 04/06/23 02:58 PG Care Time/CCT Total # of Minutes Spent Total Time Spent with Patient: Total time spent is greater than 50% in coordination of care (as documented) at patient's floor/unit and/or counseling patient: Coding Level of Care Code 02347 SUB INP/OBS CARE 235MIN Diagnoses UTI (urinary tract infection) N39.0 Fall W19.XXXA Encounter type: initial encounter Sacral decubitus ulcer L89.159 Pressure injury stage: unspecified pressure injury stage Left shoulder pain M25.512 Restrictive lung disease J98.4 Status post placement of cardiac pacemaker Z95.0 HTN (hypertension) I10 Hypertension type: essential hypertension Elevated troponin R77.8 HLD (hyperlipidemia) E78.5 Hypothyroidism E03.9 CREST variant of scleroderma M34.1 Morbid obesity with BMI of 40.0-44.9, adult E66.01; Z68.41 Paroxysmal A-fib I48.0 Hematuria R31.9 Time Spent (min) 35 (2) Fall Encounter type: initial encounter Qualified Code(s): W19.XXXA - Unspecified fall, initial encounter (3) Sacral decubitus ulcer Pressure injury stage: unspecified pressure injury stage Qualified Code(s): L89.159 - Pressure ulcer of sacral region, unspecified stage (7) HTN (hypertension) Hypertension type: essential hypertension Qualified Code(s): I10 - Essential (primary) hypertension
[2023-04-06] MEDS: CIPROFLOXACIN 500 MG TAB PO SCH (16:11)
[2023-04-06] MEDS: SODIUM CHLORIDE 0.9% 1000ML 1,000 ML IV SCH (17:25)
[2023-04-07] MEDS: SODIUM CHLORIDE 0.9% 1000ML 1,000 ML IV SCH (03:29)
[2023-04-07] MEDS: CIPROFLOXACIN 500 MG TAB PO SCH (05:44)
[2023-04-07] MEDS: LEVOTHYROXINE SODIUM 100 MCG TABLET PO SCH (05:44)
[2023-04-07] MEDS ORDERED: COVID19 BIVALENT Vaccine (Pfizer) 30mcg/0.3mL MDV IM ONE (07:36)
[2023-04-07] MEDS: APIXABAN 5 MG TABLET PO SCH (08:45)
[2023-04-07] MEDS: lisinopril 2.5 MG TAB PO SCH (08:45)
[2023-04-07] MEDS: ATORVASTATIN 10 MG TAB PO SCH (08:45)
[2023-04-07] MEDS: FLUTICASONE FUROATE 100MCG 14 PUFFS/INHALER INH SCH (08:46)
[2023-04-07] MEDS: METOPROLOL SUCC 50MG EXT REL TAB PO SCH (08:50)
[2023-04-07] MEDS ORDERED: bisacodyL 10 MG SUPP PR STA (09:45)
--- NOTE | 2023-04-07 13:05 | Discharge Summary ---
Date of Service April 07, 2023 Admission HPI Per Admitting Provider 82 yo female with PMHx afib, HLD, mixed restrictive /obstructive lung disease, CREST, complete heart block s/p pacemaker, hypothyroidism, and HTN presents for fall. Yesterday evening patient sat on the toilet before bed. Upon standing up her pants fell to her ankles and she figured she would walk to the sink with her pants still down. When approaching her walker she took a tumble onto her left shoulder and was unable to get up thereafter. She denies hitting her head. Denies headache, chest pain, shortness of breath, abdominal pain, dysuria, constipation, diarrhea, nausea, vomiting. Of note she has been seeing wound care once a week in the outpatient setting for a sacral decubitus ulcer. Family was in the process of getting patient set up with [facility]. Principal Diagnosis uti Discharge Exam The patient is awake, alert and oriented 3, well developed and well nourished, normocephalic and atraumatic, lying in bed and in no acute distress. HEENT--PERRL, EOMI, mucous membranes and oropharynx mildly dry Neck--supple. No JVD. No bruits. Thyroid normal, trachea midline, no adenopathy. Heart--normal S1 and S2. No murmurs, rubs or gallops. Lungs--reduced air entry on ausculataion Abdomen--normal bowel sounds and soft. Mild epigastric and left sided abdominal pain Extremities--no cyanosis or clubbing. No edema. Dermatologic--normal skin turgor, normal color, no abnormal lymph nodes, no rash. Neurologic--cranial nerves II through XII grossly intact. Rheumatologic--normal range of motion. Psychiatric--normal affect. Discharge Data Allergies Allergy/AdvReac Type Severity Reaction Status Date / Time Penicillins Allergy Intermediate RASH AND Verified 04/03/23 00:34 ITCHING ON TORSO. FRAGRANCE AdvReac Unknown Sneezing Uncoded 04/03/23 00:34 Consultations 04/03/23 02:27 ED Decision to Admit Stat 04/03/23 06:33 Consult Cardiology Routine Hospital Course (1) UTI (urinary tract infection): Urinalysis positive for UTI Cultures growing E Coli pansensitive Transition to Po Ciprofloxacin 500mg BID for 5 more days (2) Fall: she fell on her left shoulder No evidence of fracture or dislocation continue PT (3) Sacral decubitus ulcer: Present on admission continue wound care patient follows wound care outpatient (4) Left shoulder pain: No evidence of fracture or dislocation on X ray Only signs of osteoarthritis PRN Tylenol (5) Restrictive lung disease: Not on oxygen at home, however, SOB could be due to Pulm edema as seen on chest x ray will give one dose of lasix continue duonebs PRN wean oxygen as tolerated (6) Status post placement of cardiac pacemaker: Pacemaker interrogated and working well (7) HTN (hypertension): BP under good control, on Lisinopril (8) Elevated troponin: (9) HLD (hyperlipidemia): (10) Hypothyroidism: (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: (12) Morbid obesity with BMI of 40.0-44.9, adult: advised on lifestyle changes (13) Paroxysmal A-fib: On Eliquis and metyoprolol (14) Hematuria: Plan d/c to snf Total Time Total Time Spent Total Time Spent (In Minutes): 35 Discharge Plan Discharge Items Patient Disposition: Transfer [facility] Reason For Visit: FALL Discharge Diagnosis: UTI Activity: Resume your previous activity Non-emergency contact: Primary Care Provider Call non-emergency contact if: you have any medication questions Follow-up/Referrals: Rayray Villalta MD [Primary Care Provider] - Diet: Regular Addtl Attending Provider Instructions: please follow up with your regular PCP and wound care Pending Studies at Discharge: No Stand-Alone Forms: My [facility] Skilled Items Patient informed of condition?: Yes DNR: No Discharge Level of Care: Skilled Communicable Disease: No Discharge Prognosis: Stable Lines: None Urinary Catheter: Yes Medications and DC Order Prescriptions: New ciprofloxacin HCl 500 mg Tablet 500 mg PO Q12H 5 Days Qty: 10 0RF Continued Santyl 250 unit/gram ointment 1 applic topical 3XWK Qty: 30 0RF levothyroxine 100 mcg tablet 100 mcg PO DAILY Qty: 90 3RF lisinopril 2.5 mg tablet 2.5 mg PO DAILY Qty: 90 3RF meloxicam 7.5 mg tablet 7.5 mg PO DAILY Qty: 90 3RF clobetasol 0.05 % ointment 1 g TOP BID Qty: 60 1RF Eliquis 5 mg tablet 5 mg PO BID Qty: 180 3RF atorvastatin 10 mg tablet 10 mg PO DAILY Pulmicort Flexhaler 180 mcg/actuation aerosol powdr breath activated 2 inh inhalation DAILY metoprolol succinate 100 mg tablet extended release 24 hr 100 mg PO DAILY Discharge Orders: Discharge Order (Routine); Ordered 04/07/23 Ordered By: Nydia Desouza Admission Data Admit Date/Time: 04/03/23 03:38 Attending Provider: Nydia Desouza Admit Provider: Manny Mccallum Primary Care Provider: Rayray Villalta Other Providers: Casey Ramsey ; Mode Gonzalez ; Fidel Pham at [place] Other Interventions: Discharge Summary Assessment (RN) Last Done: 04/07/23 11:49 Coding Level of Care Code 87318 INP/OBS DISCH >30 MIN Diagnoses UTI (urinary tract infection) N39.0 Fall W19.XXXA Encounter type: initial encounter Sacral decubitus ulcer L89.159 Pressure injury stage: unspecified pressure injury stage Left shoulder pain M25.512 Restrictive lung disease J98.4 Status post placement of cardiac pacemaker Z95.0 HTN (hypertension) I10 Hypertension type: essential hypertension Elevated troponin R77.8 HLD (hyperlipidemia) E78.5 Hypothyroidism E03.9 CREST variant of scleroderma M34.1 Morbid obesity with BMI of 40.0-44.9, adult E66.01; Z68.41 Paroxysmal A-fib I48.0 Hematuria R31.9 Time Spent (min) 35
== END 2023-04-07 12:42 | DRG 689 ==
LOC: ED 23:22 → 2S 04-03 03:38 → SUATTDRO 04-03 03:38 → 2S 04-03 06:01

== ENCOUNTER 2023-04-13 04:38 | Inpatient (IN) ==
--- NOTE | 2023-04-13 04:47 | Emergency Department Note ---
Impression & Plan Hypoxic, Esophagus, foreign body, Aspiration into airway ED Provider Note NAME: NAT ASIF AGE: 82 SEX: F : 1940 ARRIVES VIA: Ambulance INFORMANT: Patient ED PROVIDER(S): Denys Dietz DO CHIEF COMPLAINT: Hemoptysis and hypoxic HPI: Patient is an 82-year-old female who presents to the ER for shortness of breath. Her symptoms initially started yesterday when she was choking on some she was eating. She notes that since then she has been coughing as she felt like symptoms in her throat. She has been coughing since then. Today she started coughing up blood. She notes she is short of breath. She denies any chest pain or pressure. No belly pain nausea vomiting or diarrhea. No dysuria urgency or frequency. No other exacerbating or remitting factors. PAST MEDICAL HISTORY:See Below PAST SURGICAL HISTORY:See Below FAMILY HISTORY:See Below SOCIAL HISTORY:See Below HOME MEDICATIONS:See Below ALLERGIES:See Below VITALS:See Below PHYSICAL EXAMINATION: GENERAL: Sitting up in bed, alert, ill-appearing, disheveled, coughing up blood EYE EXAM: normal conjunctiva. OROPHARYNX: Bright red blood around the mouth NECK: supple, no nuchal rigidity, no adenopathy, non-tender LUNGS: Diminished bilaterally. Normal chest wall mechanics HEART: no murmurs, S1 normal and S2 normal ABDOMEN: abdomen soft, non-tender, normo-active bowel sounds, no masses, no rebound or guarding. UPPER EXTREMITIES: upper extremities are grossly normal. LOWER EXTREMITIES: No pitting edema. NEURO EXAM: Normal sensorium, cranial nerves II-XII grossly intact, normal speech, no gross weakness of arms, no gross weakness of legs. MEDICAL DECISION MAKING: Patient is an 82-year-old female who presents ER for above-stated complaint. IV was established blood work was obtained. External records were reviewed. Labs show no significant leukocytosis with a hemoglobin of 16 likely secondary to dehydration. BMP with hyponatremia 130. Creatinine at 0.3. LFTs bilirubin was unremarkable. Troponin was negative. Lipase was normal. Flu COVID and RSV was negative. Patient was taken emergently to CT as she was placed on OxyMask 10 L. She initially noted that she was DNR/DNI then was later agreeable to intubation. CT was performed and read emergently which showed aspiration pneumonia. After my review of the CT questioned esophageal foreign body. I did contact Dr. Ronn Duran who reread the study and agree that there is foreign bodies in the esophagus. Did discuss with Dr. Quesada from gastroenterology. He recommended admission to the ICU and he will see the patient in the unit. I discussed the case with Marlon from the ICU. He will discuss with his attending for scope as well with the foreign debris in the trachea. Discussed with Dr. Casey Ramsey for further evaluation management and treatment from the hospital service. Patient was given Flagyl and Rocephin for aspiration. Triage Nursing notes reviewed. Limited review of prior medical records performed Vital Signs: reviewed and remarkable for hypoxic, tachycardic Differential diagnosis: Differential diagnoses includes but is not limited to pneumonia, bronchitis, COPD/Asthma exacerbation, pneumothorax, pulmonary embolism, congestive heart fa ilure, acute coronary syndrome ER treatment provided: See below Diagnostics interpreted by me include EKG and cardiac monitoring as listed below: -Cardiac Monitoring: An order was placed for continuous cardiac monitoring. The monitor shows a rate of 110 with sinus rhythm. -ECG: Sinus tachycardia rate of 115 Left axis Inferior Q waves T wave inversion in the high lateral lead Right bundle branch block T wave inversion V1 and V2 Mild elevation in V3 which is new in comparison to old. Septal Q waves in the lateral leads Only change from previous is V3 -Laboratory studies:Interpreted by me as stated above in MDM and shown below. Imaging studies: Xrays: As interpreted by me:none CTs show: CT angio of the chest per my read shows foreign debris in the esophagus CT angio of the chest per radiology as described above Consultation(s): As described in [facility] Procedures:none Critical Care: I have personally spent 75 minutes of critical care time in the direct management of this patient. This includes bedside care, interpretation of diagnostic studies, and testing, discussion with consultants, patient, and family members, and other required patient management activities. This 75 minutes is in excess of all separately billable procedures. 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 FRAGRANCE AdvReac Unknown Sneezing Uncoded 04/03/23 00:34 Home Meds Home Medications Medication Instructions Recorded Confirmed atorvastatin 10 mg tablet 10 mg PO DAILY 04/03/23 04/03/23 budesonide 180 mcg/actuation 2 inh inhalation DAILY 04/03/23 04/03/23 breath activated powder inhaler (Pulmicort Flexhaler) metoprolol succinate 100 mg 100 mg PO DAILY 04/03/23 04/03/23 tablet,extended release 24 hr Previous Rx's Medication Instructions Recorded levothyroxine 100 mcg tablet 100 mcg PO DAILY #90 tabs 04/21/22 lisinopril 2.5 mg tablet 2.5 mg PO DAILY #90 tabs 05/26/22 meloxicam 7.5 mg tablet 7.5 mg PO DAILY #90 tabs 05/26/22 clobetasol 0.05 % topical ointment 1 g topical BID #60 grams 11/08/22 apixaban 5 mg tablet (Eliquis) 5 mg PO BID #180 tabs 02/04/23 collagenase clostridium histo. 250 1 applic topical 3XWK #30 grams 03/29/23 unit/gram topical ointment (Santyl) Results & Data (ED) Vital Signs Vital Signs - 24 hr 04/13/23 04:46 04/13/23 04:46 04/13/23 04:46 Temperature 37.2 C Temperature Source Oral Pulse Rate 98 H Pulse Rate [Apical] Pulse Rhythm Irregular Pulse Rhythm [Apical] Pulse Strength Normal Respiratory Rate 27 H Respiratory Effort / Characteristics Labored Respiratory Depth Shallow Respiratory Pattern Blood Pressure 133/88 Blood Pressure [Left Arm] Blood Pressure Mean 103 Blood Pressure Mean [Left Arm] Blood Pressure Position Lying Pulse Oximetry 91 92 Oxygen Delivery Method Nasal Cannula Nasal Cannula Nasal Cannula Oxygen Flow Rate 3 3 3 Sepsis Recent Fever Within 48 Hours No Sepsis New/Unexplained Change in Mental Status No Sepsis Action Taken by Nursing No Action Required 04/13/23 04:44 04/13/23 05:31 Temperature Temperature Source Pulse Rate 114 H Pulse Rate [Apical] 115 H Pulse Rhythm Pulse Rhythm [Apical] Irregular Pulse Strength Respiratory Rate 26 H Respiratory Effort / Characteristics Spontaneous Respiratory Depth Shallow Respiratory Pattern Tachypnea Blood Pressure Blood Pressure [Left Arm] 129/105 H Blood Pressure Mean Blood Pressure Mean [Left Arm] 113 Blood Pressure Position Pulse Oximetry 96 Oxygen Delivery Method Oxymask Oxygen Flow Rate 10 Sepsis Recent Fever Within 48 Hours Sepsis New/Unexplained Change in Mental Status Sepsis Action Taken by Nursing Laboratory Data 04/13/23 04:51 04/13/23 04:51 Lab Results 04/13/23 04/13/23 04/13/23 Range/Units 04:50 04:51 04:51 WBC 9.47 (4.8-10.8) K/ul RBC 4.97 (4.20-5.40) M/uL Hgb 16.2 H (12.0-16.0) g/dl POC Hgb (12.0-16.0) g/dl Hct 47.8 H (37.0-47.0) % POC Hct (37-47) % MCV 96.2 (80.0-100.0) fL MCH 32.6 (25.0-34.0) pg MCHC 33.9 (32.0-36.0) g/dL RDW Std Deviation 48.9 H (36.4-46.3) fL RDW Coeff of Elli 13.8 (11.5-14.5) % Plt Count 304 (130-400) K/uL MPV 9.3 L (9.4-12.4) fL Immature Gran % (Auto) 0.4 % Neut % (Auto) 71.0 % Lymph % (Auto) 14.9 % Schuyler % (Auto) 9.9 % Eos % (Auto) 3.3 % Baso % (Auto) 0.5 % Neut # (Auto) 6.72 H (1.40-6.50) K/uL Lymph # (Auto) 1.41 (1.2-3.4) K/uL Schuyler # (Auto) 0.94 H (0.11-0.59) K/uL Eos # (Auto) 0.31 (0-0.50) K/uL Baso # (Auto) 0.05 (0-0.2) K/uL Immature Gran # (Auto) 0.04 (0.01-0.20) K/uL POC Sodium (135-144) mmol/L Sodium 130 L (136-145) mmol/L POC Potassium (3.3-5.0) mmol/L Potassium 4.2 (3.5-5.1) mmol/L POC Chloride (101-112) mmol/L Chloride 91 L (98-107) mmol/L Carbon Dioxide 35 H (21-32) mmol/L POC Total CO2 (24-31) mmol/L Anion Gap 4 (3-11) POC Anion Gap (16-25) mmol/L POC BUN (7-18) mg/dl BUN 8 (6-23) mg/dl Creatinine 0.37 L (0.6-1.2) mg/dl POC Creatinine (0.6-1.3) mg/dl Est Cr Clr Drug Dosing 137.8 ml/min Est GFR ( Amer) 113.7 ml/min Est GFR (Non-Af Amer) 98.1 ml/min BUN/Creatinine Ratio 21.6 H (10-20) Glucose 95 (70-99(Fasting)) mg/dl POC Glucose (other) (70-99) mg/dl Calcium 8.9 (8.6-10.3) mg/dl POC Ioniz Calcium Polina (1.12-1.32) mmol/l Total Bilirubin 1.0 (0.2-1.0) mg/dl AST 57 H (13-39) U/L ALT 26 (7-52) U/L Alkaline Phosphatase 119 H (34-104) U/L Troponin I High Sens 7.0 (0-14) pg/ml Total Protein 6.2 (6.0-8.3) gm/dl Albumin 3.0 L (3.4-5.0) gm/dl Globulin 3.2 (2.5-4.0) gm/dl Albumin/Globulin Ratio 0.9 (0.9-2) Lipase 10 L (11-82) U/L SARS-CoV-2 (PCR) NEGATIVE (Negative) Influenza Type A (PCR) Negative (Neg) Influenza Type B (PCR) Negative (Neg) RSV (RT-PCR) Negative (Neg) 04/13/23 Range/Units 04:56 WBC (4.8-10.8) K/ul RBC (4.20-5.40) M/uL Hgb (12.0-16.0) g/dl POC Hgb 17.7 H (12.0-16.0) g/dl Hct (37.0-47.0) % POC Hct 52 H (37-47) % MCV (80.0-100.0) fL MCH (25.0-34.0) pg MCHC (32.0-36.0) g/dL RDW Std Deviation (36.4-46.3) fL RDW Coeff of Elli (11.5-14.5) % Plt Count (130-400) K/uL MPV (9.4-12.4) fL Immature Gran % (Auto) % Neut % (Auto) % Lymph % (Auto) % Schuyler % (Auto) % Eos % (Auto) % Baso % (Auto) % Neut # (Auto) (1.40-6.50) K/uL Lymph # (Auto) (1.2-3.4) K/uL Schuyler # (Auto) (0.11-0.59) K/uL Eos # (Auto) (0-0.50) K/uL Baso # (Auto) (0-0.2) K/uL Immature Gran # (Auto) (0.01-0.20) K/uL POC Sodium 130 L (135-144) mmol/L Sodium (136-145) mmol/L POC Potassium 4.1 (3.3-5.0) mmol/L Potassium (3.5-5.1) mmol/L POC Chloride 89 L (101-112) mmol/L Chloride (98-107) mmol/L Carbon Dioxide (21-32) mmol/L POC Total CO2 32 H (24-31) mmol/L Anion Gap (3-11) POC Anion Gap 14.0 L (16-25) mmol/L POC BUN 7 (7-18) mg/dl BUN (6-23) mg/dl Creatinine (0.6-1.2) mg/dl POC Creatinine 0.4 L (0.6-1.3) mg/dl Est Cr Clr Drug Dosing ml/min Est GFR ( Amer) ml/min Est GFR (Non-Af Amer) ml/min BUN/Creatinine Ratio (10-20) Glucose (70-99(Fasting)) mg/dl POC Glucose (other) 98 (70-99) mg/dl Calcium (8.6-10.3) mg/dl POC Ioniz Calcium Polina 1.09 L (1.12-1.32) mmol/l Total Bilirubin (0.2-1.0) mg/dl AST (13-39) U/L ALT (7-52) U/L Alkaline Phosphatase (34-104) U/L Troponin I High Sens (0-14) pg/ml Total Protein (6.0-8.3) gm/dl Albumin (3.4-5.0) gm/dl Globulin (2.5-4.0) gm/dl Albumin/Globulin Ratio (0.9-2) Lipase (11-82) U/L SARS-CoV-2 (PCR) (Negative) Influenza Type A (PCR) (Neg) Influenza Type B (PCR) (Neg) RSV (RT-PCR) (Neg) Administered Medications Discontinued Medications Ioversol (Optiray 320 125ml) 125 ml IV ONCE ONE Stop: 04/13/23 05:08 Last Admin: 04/13/23 05:07 Dose: 117 ml Documented By: RADHA Imaging Data Radiologist's Impression: Chest CTA 04/13/23 04:44 Exam(s): CTA CHEST IV Amt: 117 ML OPTIRAY 320 EXAM: CT Angiography Chest With Intravenous Contrast CLINICAL HISTORY: Reason for exam: PE. TECHNIQUE: Axial computed tomographic angiography images of the chest with intravenous contrast. CTDI is 28.14 mGy and DLP is 922.88 mGy-cm. Automated exposure control was utilized for the study. A dose lowering technique was utilized adhering to the principles of ALARA. MIP reconstructed images were created and reviewed. COMPARISON: No relevant prior studies available. FINDINGS: Artifacts: Motion artifact alignments evaluation. Trachea: Debris within the trachea with expiratory phase. Pulmonary arteries: No evidence of pulmonary embolism within the pulmonary outflow tract or proximal branches. Aorta: Atherosclerotic disease. No thoracic aortic aneurysm. Lungs: Dependent airspace disease within the lungs, right greater than left, which may relate to compressive atelectasis. Sequela of infection/aspiration also possible. No mass. Pleural space: Small right pleural effusion. Given cardiomegaly, findings may relate to sequelae of heart failure. This may be also be reactive in nature from the right lower lobe airspace disease. Heart: Cardiomegaly. Bones/joints: Degenerative changes in the spine. Flowing osteophyte formations in the spine compatible with diffuse idiopathic skeletal hyperostosis (DISH). No acute fracture. No dislocation. Soft tissues: Unremarkable. Lymph nodes: Unremarkable. No enlarged lymph nodes. Tubes, lines and devices: Left subclavian central venous catheter tip in the approach pacemaker with leads superior vena cava. IMPRESSION: 1. Motion artifact alignments evaluation. 2. No evidence of pulmonary embolism within the pulmonary outflow tract or proximal branches. 3. Dependent airspace disease within the lungs, right greater than left, which may relate to compressive atelectasis. Sequela of infection/aspiration also possible. 4. Small right pleural effusion. Given cardiomegaly, findings may relate to sequelae of heart failure. This may be also be reactive in nature from the right lower lobe airspace disease. 5. Debris within the trachea. Findings may be aspiration related. Electronically signed by: Ronn Villaseñor MD 04/13/23 05:26 AM Discharge Plan Visit Data Chief Complaint: Shortness of Breath/Dyspnea Stated Complaint: SOB, Coughing up Blood ED Provider: Denys Dietz Discharge Problem: Hypoxic, Esophagus, foreign body, Aspiration into airway Forms Stand Alone Forms: [employer] Prescriptions Prescriptions: No Action Santyl 250 unit/gram ointment 1 applic topical 3XWK Qty: 30 0RF levothyroxine 100 mcg tablet 100 mcg PO DAILY Qty: 90 3RF lisinopril 2.5 mg tablet 2.5 mg PO DAILY Qty: 90 3RF meloxicam 7.5 mg tablet 7.5 mg PO DAILY Qty: 90 3RF clobetasol 0.05 % ointment 1 g TOP BID Qty: 60 1RF Eliquis 5 mg tablet 5 mg PO BID Qty: 180 3RF atorvastatin 10 mg tablet 10 mg PO DAILY Pulmicort Flexhaler 180 mcg/actuation aerosol powdr breath activated 2 inh inhalation DAILY metoprolol succinate 100 mg tablet extended release 24 hr 100 mg PO DAILY Referrals Referrals: Rayray Villalta MD [Primary Care Provider] -
[2023-04-13] MEDS ORDERED: OPTIRAY 320 125ml IV ONE (05:07)
[2023-04-13 05:08] LABS: iSTAT Creatinine 0.4 mg/dl (0.6-1.3); iSTAT Hemoglobin 17.7 g/dl (12.0-16.0); iSTAT Ionized Calcium 1.09 mmol/l (1.12-1.32); iSTAT Potassium 4.1 mmol/L (3.3-5.0)
[2023-04-13 05:10] LABS: Basophils # (auto) 0.05 K/uL (0-0.2); Basophils % (auto) 0.5 %; Eosinophils # (auto) 0.31 K/uL (0-0.50); Eosinophils % (auto) 3.3 %; Hematocrit (blood only) 47.8 % (37.0-47.0); Hemoglobin 16.2 g/dl (12.0-16.0); Immature Granulocytes # (auto) 0.04 K/uL (0.01-0.20); Immature Granulocytes % (auto) 0.4 %; Lymphocytes # (auto) 1.41 K/uL (1.2-3.4); Lymphocytes % (auto) 14.9 %; Mean Corpuscular Hemoglobin 32.6 pg (25.0-34.0); Mean Corpuscular Hgb Conc 33.9 g/dL (32.0-36.0); Mean Corpuscular Volume 96.2 fL (80.0-100.0); Mean Platelet Volume 9.3 fL (9.4-12.4); Monocytes # (auto) 0.94 K/uL (0.11-0.59); Monocytes % (auto) 9.9 %; Neutrophils # (auto) 6.72 K/uL (1.40-6.50); Platelet Count 304 K/uL (130-400); RDW Coefficient of Variation 13.8 % (11.5-14.5); RDW Standard Deviation 48.9 fL (36.4-46.3); Red Blood Count 4.97 M/uL (4.20-5.40); White Blood Count 9.47 K/ul (4.8-10.8)
[2023-04-13 05:23] LABS: Albumin Globulin Ratio 0.9 (0.9-2); BUN Creatinine Ratio 21.6 (10-20); Calcium 8.9 mg/dl (8.6-10.3); Creatinine Clr Calc Pharmacy 137.8 ml/min; Est GFR (African American) 113.7 ml/min; Est GFR (Non-African American) 98.1 ml/min; Globulin 3.2 gm/dl (2.5-4.0); Potassium 4.2 mmol/L (3.5-5.1); Total Protein 6.2 gm/dl (6.0-8.3)
--- NOTE | 2023-04-13 05:27 | CT Scan Report ---
Exam(s): CTA CHEST IV Amt: 117 ML OPTIRAY 320 EXAM: CT Angiography Chest With Intravenous Contrast CLINICAL HISTORY: Reason for exam: PE. TECHNIQUE: Axial computed tomographic angiography images of the chest with intravenous contrast. CTDI is 28.14 mGy and DLP is 922.88 mGy-cm. Automated exposure control was utilized for the study. A dose lowering technique was utilized adhering to the principles of ALARA. MIP reconstructed images were created and reviewed. COMPARISON: No relevant prior studies available. FINDINGS: Artifacts: Motion artifact alignments evaluation. Trachea: Debris within the trachea with expiratory phase. Pulmonary arteries: No evidence of pulmonary embolism within the pulmonary outflow tract or proximal branches. Aorta: Atherosclerotic disease. No thoracic aortic aneurysm. Lungs: Dependent airspace disease within the lungs, right greater than left, which may relate to compressive atelectasis. Sequela of infection/aspiration also possible. No mass. Pleural space: Small right pleural effusion. Given cardiomegaly, findings may relate to sequelae of heart failure. This may be also be reactive in nature from the right lower lobe airspace disease. Heart: Cardiomegaly. Bones/joints: Degenerative changes in the spine. Flowing osteophyte formations in the spine compatible with diffuse idiopathic skeletal hyperostosis (DISH). No acute fracture. No dislocation. Soft tissues: Unremarkable. Lymph nodes: Unremarkable. No enlarged lymph nodes. Tubes, lines and devices: Left subclavian central venous catheter tip in the approach pacemaker with leads superior vena cava. IMPRESSION: 1. Motion artifact alignments evaluation. 2. No evidence of pulmonary embolism within the pulmonary outflow tract or proximal branches. 3. Dependent airspace disease within the lungs, right greater than left, which may relate to compressive atelectasis. Sequela of infection/aspiration also possible. 4. Small right pleural effusion. Given cardiomegaly, findings may relate to sequelae of heart failure. This may be also be reactive in nature from the right lower lobe airspace disease. 5. Debris within the trachea. Findings may be aspiration related. Electronically signed by: Ronn Villaseñor MD 04/13/23 05:26 AM
[2023-04-13 05:39] LABS: Influenza A virus by PCR Negative (Neg); Influenza B virus by PCR Negative (Neg); RSV by PCR Negative (Neg); SARS CoV2 RNA(COVID-19) Ceph NEGATIVE (Negative)
[2023-04-13] MEDS ORDERED: cefTRIAXone SODIUM 2,000 MG/70 ML BAG IV STA (05:50)
[2023-04-13] MEDS ORDERED: metroNIDAZOLE 500 MG/100 ML BAG IV STA (05:50)
[2023-04-13] MEDS ORDERED: SODIUM CHLORIDE 0.9% 500 ML IV ONE (05:50)
--- NOTE | 2023-04-13 06:03 | History & Physical Report ---
Date of Service April 13, 2023 Assessment & Plan (1) Aspiration into airway: Plan: 82yo Female with PMH CREST, atrial fibrillation s/p pacer, hypothyroidism, HTN, HLD, restrictive lung disease here for aspiration. Aspiration Pneumonia -currently 96% O2 sat on 10L oxymask -CT chest: Motion artifact alignments evaluation. No evidence of pulmonary embolism within the pulmonary outflow tract or proximal branches. Dependent airspace disease within the lungs, right greater than left, which may relate to compressive atelectasis. Sequela of infection/aspiration also possible. Small right pleural effusion. Given cardiomegaly, findings may relate to sequelae of heart failure. This may be also be reactive in nature from the right lower lobe airspace disease. Debris within the trachea. Findings may be aspiration related. -in ED ordered ceftriaxone flagyl -admit to ICU -consult placed to ICU for possible bronch -consult placed to gastroenterology -consulted speech therapy -held eliquis -NPO -Discussed with Dr. Meyer regarding her eliquis, please call her before bronchoscopy to administer Factor X 2000mg right before procedure -ordered MRSA swab HTN, afib -lisinopril, metoprolol PO on hold -monitor heart rate, administer metoprolol 5mg IV for rate>120 Difficulty with urination -catheter in place Sacral Ulcer -consult wound care Hypothyroidism -levothyroxine on hold HLD -atorvastatin on hold FENa: NPO Code Status: Full DVT PPX: SCDs PT/OT: ordered, speech therapy ordered Case Management: recently from [facility] PT Dispo: ICU Marie Kohli D.O. PGY 3, FCM (2) Hypoxic: (3) UTI (urinary tract infection): (4) Elevated troponin: (5) Afib: (6) HTN (hypertension): (7) HLD (hyperlipidemia): (8) Hypothyroidism: (9) CREST variant of scleroderma: History of Present Illness Chief Complaint: Aspiration Primary Care Provider: Rayray Villalta MD 82yo Female with PMH CREST, atrial fibrillation s/p pacer, hypothyroidism, HTN, HLD, restrictive lung disease here for aspiration. Patient was recently hospitalized from 04/03-04/07 for concern UTI fall, was treated with ci profloxacin, sent to [facility] for Rehab. Per family patient may have been choking on food for the past week. Patient recalls yesterday morning she choked while eating fernandez and eggs. Notes some hemoptysis. She denies any fever nausea vomitting chest pain abd pain diarrhea constipation. She states she has not been able to pee on her own since leaving the hospital, still using a catheter. Patient denies history of swallowing difficulties, but acknowledges that her CREST may make it difficult to swallow food. Patient states her POA is all 4 of her children. Allergies Allergy/AdvReac Type Severity Reaction Status Date / Time Penicillins Allergy Intermediate RASH AND Verified 04/03/23 00:34 ITCHING ON TORSO. FRAGRANCE AdvReac Unknown Sneezing Uncoded 04/03/23 00:34 Home Medications Medication Instructions Recorded Confirmed Type levothyroxine 100 mcg tablet 100 mcg PO DAILY #90 tabs 04/21/22 04/03/23 Rx lisinopril 2.5 mg tablet 2.5 mg PO DAILY #90 tabs 05/26/22 04/03/23 Rx meloxicam 7.5 mg tablet 7.5 mg PO DAILY #90 tabs 05/26/22 04/03/23 Rx clobetasol 0.05 % topical ointment 1 g topical BID #60 grams 11/08/22 04/03/23 Rx apixaban 5 mg tablet (Eliquis) 5 mg PO BID #180 tabs 02/04/23 04/03/23 Rx collagenase clostridium histo. 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 Feels Safe at Home: Yes Diet: regular Gender Identity: Female Assistive Devices: Walker Physical Exam Constitutional: + frail appearing, cooperative and comfortable Respiratory: Auscultation: + rales (throughout) Cardiovascular: Rate/Rhythm: regular rate and regular rhythm Gastrointestinal (Abdomen): Percussion/Palpation: abdomen soft; abdomen nontender Skin: dry crusting skin across face, chest, legs Results & Data Results & Data Vital Signs (Past 12 Hours) Vital Signs Temp Pulse Pulse Resp BP BP Pulse Ox 04/13/23 05:31 115 H 26 H 129/105 H 96 04/13/23 04:44 114 H 04/13/23 04:46 92 04/13/23 04:46 04/13/23 04:46 37.2 C 98 H 27 H 133/88 91 O2 Del Method O2 Flow Rate 04/13/23 05:31 Oxymask 10 04/13/23 04:44 04/13/23 04:46 Nasal Cannula 3 04/13/23 04:46 Nasal Cannula 3 04/13/23 04:46 Nasal Cannula 3 Critical Care Time 50 minutes Supervising Physician Co-Signing Physician Notes attending addendum: I have physically seen this patient, have supervised the medical residents activities, and agree with the H&P unless as otherwise noted. Assessment and Plan: Acute respiratory failure with hypoxia and hypercapnia/ Aspiration pneumoniarequired emergent intubation while in ED due to respiratory compromise admission to the ICU broad-spectrum antibiotics manganese breaker to perform bronchoscopy gastroenterology available as needed hypertension/atrial fibrillation/chronic anticoagulation with Eliquis- Reversed with Kcentra All of the medications on hold due to intubation status Lopressor 5 mg IV every 4 hours as noted sacral ulcer/right heel heel lesion- Consult wound care remaining care per ICU manganese breaker team Resident Activity Tracking Resident Involvement: Resident Care Provided Care Provided: Adult Hospital Medicine (5) Afib Atrial fibrillation type: paroxysmal Qualified Code(s): I48.0 - Paroxysmal atrial fibrillation (6) HTN (hypertension) Hypertension type: essential hypertension Qualified Code(s): I10 - Essential (primary) hypertension
[2023-04-13] MEDS ORDERED: POLYETHYLENE (MIRALAX) 17 GM PACK PO PRN (06:24)
[2023-04-13] MEDS ORDERED: RAPID SEQUENCE INDUCTION BAG ONE (06:24)
[2023-04-13] MEDS ORDERED: NOREPINEPHRINE/D5W 4 MG/250 ML IV ONE ×2 (06:43→06:54)
[2023-04-13] MEDS ORDERED: HYDROCORTISONE SOD SUCCINATE 100 MG/2 ML VIAL IV STA (06:56)
[2023-04-13 06:58] LABS: INR 1.2 (0.9-1.1); Partial Thromboplastin Ratio 1.2; Partial Thromboplastin Time 33.4 Seconds (21.0-31.0); Prothrombin Time 12.8 Seconds (9.0-12.0)
[2023-04-13] MEDS ORDERED: Nursing to Pharmacy Communication SCH (07:00)
[2023-04-13] MEDS ORDERED: Double Conc; 16mg in 500mL IV SCH (07:00)
[2023-04-13] MEDS ORDERED: PROPOFOL IV EMULSION 10 MG/ML 100 ML VIAL IV ONE ×2 (07:01→09:12)
--- NOTE | 2023-04-13 07:06 | Critical Care Consultation ---
Date of Consultation April 13, 2023 Assessment & Plan (1) Aspiration into airway: (2) Acute respiratory failure with hypoxia: (3) Sacral decubitus ulcer: (4) Afib: (5) Hemoptysis: (6) CREST (calcinosis, Raynaud's phenomenon, esophageal dysfunction, sclerodactyly, telangiectasia): (7) Morbid obesity with BMI of 40.0-44.9, adult: (8) Shock circulatory: (9) Tracheal mass: (10) Esophageal mass: Plan Reason Critically Ill: 82-year-old female present to the hospital with comp laints of shortness of breath and choking episode. She got severely hypoxic while she was up to come to the ICU and was intubated. 2D echo 04/03/2023: EF 55-60%, concentric LVH, RV mildly dilated with normal function CT chest 04/13/2023 personally reviewed: Dilated esophagus with mass/bolus in the upper one third of the esophagus which is almost completely obstructing mid trachea Small right-sided pleural effusion with dependent atelectasis No significant mediastinal lymphadenopathy Neuro - [facility] ICU: Sedated on propofol Cardiac - -- Shock Random cortisol 16.3, continue with hydrocortisone Continue with vasopressor support to keep MAP greater than 65 EKG 04/13/2023: Sinus tachycardia, left axis deviation, LVH, right bundle branch block with first-degree AV block, no ST-T wave changes --A-fib On metoprolol and apixaban at home Respiratory - -- VDRF Likely secondary to ventilatory failure from endotracheal obstruction Continue with ventilatory support --Hemoptysis Kcentra to be given 04/13/2023 -- Elevated peak pressures with normal plateau Represents upper airway obstruction likely from endotracheal mass GI - -- Esophageal mass GI has been consulted RENAL/LYTES - Monitor BUNs/creatinine Avoid nephrotoxic medications - Continue with Avila catheter ENDO - -- Hypothyroidism TSH 43, free T4 1.3 Give levothyroxine IV while intubated --History of crest syndrome HEME - Monitor H&H ID - -- Possible aspiration pneumonia Continue with antibiotics cefepime and Flagyl given allergy to penicillin Procalcitonin negative --Prophylaxis VTE: IPC, apixaban on hold GI: Pantoprazole twice daily Lines: Right IJ, left radial, positive Avila Diet: N.p.o. Plan: Given the elevated peak pressure with normal plateau, there is most likely upper airway obstruction which could be from the esophageal aspiration bolus versus esophageal mass. Aspiration cannot be ruled out, we will plan bronchoscopy GI has also been consulted Kcentra will be given 15 minutes prior to bronchoscopy. Hypomagnesemia being replaced We will start the patient on hydrocortisone given the patient was hypotensive and low random cortisol Continue with antibiotics. I have personally spent 62 minutes of critical care time in the direct management of this patient. This is a life/limb threatening event. This includes time spent evaluating patient, direct bedside care, chart review, placing orders, interpretation of diagnostic studies, discussion with consultants, patient, and family members, as well as other required patient management activities. This time is exclusive of all separately billable procedures, and teaching time and separate from and in addition to any other critical care service time. History of Present Illness Attending Physician: Casey Ramsey MD History of Present Illness 82-year-old female present to the hospital with complaints of shortness of lefty th and choking episode Past medical history: A-fib status post ablation and pacemaker on apixaban, h ypothyroidism, hypertension, dyslipidemia, crest syndrome In the ER patient got severely hypoxic and was intubated At the time of examination patient was on ventilator, breathing with the vent respirate of 24, peak pressures were in the low 40s with plateau in the high 20s Patient was on 100% FiO2, PEEP of 10, saturating in the low 90s. Systolic blood pressure was in the 70s. Patient was started on Levophed As per the note yesterday morning patient felt that she was choking while she was eating her breakfast. No subjective fever or chills Allergies Allergy/AdvReac Type Severity Reaction Status Date / Time Penicillins Allergy Intermediate RASH AND Verified 04/03/23 00:34 ITCHING ON TORSO. FRAGRANCE AdvReac Unknown Sneezing Uncoded 04/03/23 00:34 Home Medications Medication Instructions Recorded Confirmed Type levothyroxine 100 mcg tablet 100 mcg PO DAILY #90 tabs 04/21/22 04/03/23 Rx lisinopril 2.5 mg tablet 2.5 mg PO DAILY #90 tabs 05/26/22 04/03/23 Rx meloxicam 7.5 mg tablet 7.5 mg PO DAILY #90 tabs 05/26/22 04/03/23 Rx clobetasol 0.05 % topical ointment 1 g topical BID #60 grams 11/08/22 04/03/23 Rx apixaban 5 mg tablet (Eliquis) 5 mg PO BID #180 tabs 02/04/23 04/03/23 Rx collagenase clostridium histo. 250 1 applic topical 3XWK #30 grams 03/29/23 04/03/23 Rx unit/gram topical ointment (Santyl) atorvastatin 10 mg tablet 10 mg PO DAILY 04/03/23 04/03/23 History budesonide 180 mcg/actuation 2 inh inhalation DAILY 04/03/23 04/03/23 History breath activated powder inhaler (Pulmicort Flexhaler) metoprolol succinate 100 mg 100 mg PO DAILY 04/03/23 04/03/23 History tablet,extended release 24 hr Patient History Medical History Arthritis CREST variant of scleroderma Endometrial cancer HLD (hyperlipidemia) HTN (hypertension) Hx of pilonidal cyst resection Hypothyroidism USP (current) use of anticoagulants Morbid obesity with BMI of 40.0-44.9, adult Osteopenia Paroxysmal A-fib Partial small bowel obstruction Restrictive lung disease SBO (small bowel obstruction) Syncope Tachycardia Third degree heart block Surgical History H/O colonoscopy History of hysterectomy S/P partial hysterectomy S/P tonsillectomy Family History Father No problems noted. 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 Feels Safe at Home: Yes Safety Concerns: Feels Safe At This Time Diet: regular Gender Identity: Female Assistive Devices: Walker Review of Systems Review of Systems: Unobtainable due to endotracheal tube Physical Exam Physical Exam: Constitutional: No acute distress HEENT: PERRLA, positive ETT Respiratory system: Decreased air entry bilaterally, no wheeze, rhonchi, positive crackles bilateral lower lobes CVS: S1-S2 positive, no murmurs or gallops Abdomen: Soft, nontender, nondistended, positive bowel sounds x4, obese Extremities: +1 pulses bilaterally radialis/ dorsalis pedis, no cyanosis, + pitting edema bilateral lower extremity, dry scales appreciated bilateral lower extremity Neuro: Intubated, breathing over the vent Psych: Unable to assess G/U: Positive Avila Musculoskeletal: Patient has sacral decubital ulcer Skin: no rashes, warm and dry Lymphatic: no cervical or axillary lymphadenopathy Results & Data Results & Data Vital Signs (Past 12 Hours) Vital Signs Temp Pulse Pulse Resp BP BP Pulse Ox 04/13/23 05:31 115 H 26 H 129/105 H 96 04/13/23 04:44 114 H 04/13/23 04:46 92 04/13/23 04:46 04/13/23 04:46 37.2 C 98 H 27 H 133/88 91 O2 Del Method O2 Flow Rate 04/13/23 05:31 Oxymask 10 04/13/23 04:44 04/13/23 04:46 Nasal Cannula 3 04/13/23 04:46 Nasal Cannula 3 04/13/23 04:46 Nasal Cannula 3 Laboratory Results 04/13/23 04:51 04/13/23 04:51 Coding Level of Care Code 68549 CRITICAL CARE 1ST 30-74M Diagnoses Aspiration into airway T17.908A Acute respiratory failure with hypoxia J96.01 Sacral decubitus ulcer L89.159 Pressure injury stage: unspecified pressure injury stage Afib I48.0 Atrial fibrillation type: paroxysmal Hemoptysis R04.2 CREST (calcinosis, Raynaud's phenomenon, esophageal dysfunction, sclerodactyly, telangiectasia) M34.1 Morbid obesity with BMI of 40.0-44.9, adult E66.01; Z68.41 Shock circulatory R57.9 Tracheal mass J39.8 Esophageal mass K22.89 Time Spent (min) 62 (3) Sacral decubitus ulcer Pressure injury stage: unspecified pressure injury stage Qualified Code(s): L89.159 - Pressure ulcer of sacral region, unspecified stage (4) Afib Atrial fibrillation type: paroxysmal Qualified Code(s): I48.0 - Paroxysmal atrial fibrillation
--- NOTE | 2023-04-13 07:28 | XRay Report ---
XR chest 1V portable HISTORY: Shortness of breath. Intubation. COMPARISON: Chest 04/13/2023. FINDINGS: Endotracheal tube terminates 2.3 cm from the leandro. The study is rotated. There is a small right pleural effusion again noted. No pneumothorax. Left-sided dual-chamber pacemaker. The heart re ignacia mildly enlarged. There is mild central pulmonary basilar congestion without overt edema. Bibasi lar linear densities persist. This favors subsegmental atelectasis. No new focal lung consolidations. IMPRESSION: 1. The endotracheal tube terminates 2.3 cm from the leandro. 2. Small right pleural effusion right basilar densities persist. 3. When comparing to the prior chest CT, there is suggestion of a large esophageal mass which extend into the lower trachea resulting in severe central canal narrowing. This was discussed with Dr. Calzada at 7:24 AM on 04/13/2023. ACT 112: Negative or not required by law. Electronically signed by: Eladio Silvestre M.D. 04/13/2023 7:25 AM
--- NOTE | 2023-04-13 07:29 | XRay Report ---
XR chest 1V portable HISTORY: Intubation. Shortness of breath. COMPARISON: Chest 04/13/2023. FINDINGS: Endotracheal tube terminates 2.2 cm from the leandro. No pneumothorax. No evidence for pulmo nary edema. The heart remains mildly enlarged. Small right pleural effusion and right basilar densiti es persist. The left lung is essentially clear. A right jugular central venous catheter terminates in the proximal SVC. IMPRESSION: 1. Satisfactory support line placement. 2. In comparison to the prior chest CT, there is again suggestion of an esophageal mass which extends into the lower trachea resulting in severe tracheal narrowing. ACT 112: Negative or not required by law. Electronically signed by: Eladio Silvestre M.D. 04/13/2023 7:28 AM
--- NOTE | 2023-04-13 07:32 | Gastrointestinal Consultation ---
Date of Consultation April 13, 2023 Assessment & Plan (1) Esophagus, foreign body: I am not certain whether she had food impaction or food in esophagus related to mass in esophagus. There is mention on CT of "food debris" in esophagus. There is mention on CXR of mass in esophagus with impingement on trachea. She does need EGD but timing will be made with discussion with ICU/Pulmonology. 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 She was found to have aspiration and ended up getting intubated for hypoxia. CT chest showed debris in trachea and there is report of "mass in distal esophagus which extends into trachea with resultant tracheal narrowing". Allergies Allergy/AdvReac Type Severity Reaction Status Date / Time Penicillins Allergy Intermediate RASH AND Verified 04/03/23 00:34 ITCHING ON TORSO. FRAGRANCE AdvReac Unknown Sneezing Uncoded 04/03/23 00:34 Home Medications Medication Instructions Recorded Confirmed Type levothyroxine 100 mcg tablet 100 mcg PO DAILY #90 tabs 04/21/22 04/03/23 Rx lisinopril 2.5 mg tablet 2.5 mg PO DAILY #90 tabs 05/26/22 04/03/23 Rx meloxicam 7.5 mg tablet 7.5 mg PO DAILY #90 tabs 05/26/22 04/03/23 Rx clobetasol 0.05 % topical ointment 1 g topical BID #60 grams 11/08/22 04/03/23 Rx apixaban 5 mg tablet (Eliquis) 5 mg PO BID #180 tabs 02/04/23 04/03/23 Rx collagenase clostridium histo. 250 1 applic topical 3XWK #30 grams 03/29/23 04/03/23 Rx unit/gram topical ointment (Santyl) atorvastatin 10 mg tablet 10 mg PO DAILY 04/03/23 04/03/23 History budesonide 180 mcg/actuation 2 inh inhalation DAILY 04/03/23 04/03/23 History breath activated powder inhaler (Pulmicort Flexhaler) metoprolol succinate 100 mg 100 mg PO DAILY 04/03/23 04/03/23 History tablet,extended release 24 hr Patient History Medical History Arthritis CREST variant of scleroderma Endometrial cancer HLD (hyperlipidemia) HTN (hypertension) Hx of pilonidal cyst resection Hypothyroidism longterm (current) use of anticoagulants Morbid obesity with BMI of 40.0-44.9, adult Osteopenia Paroxysmal A-fib Partial small bowel obstruction Restrictive lung disease SBO (small bowel obstruction) Syncope Tachycardia Third degree heart block Surgical History H/O colonoscopy History of hysterectomy S/P partial hysterectomy S/P tonsillectomy Family History Father No problems noted. 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 Feels Safe at Home: Yes Diet: regular Gender Identity: Female Assistive Devices: Walker Review of Systems Review of Systems: Unobtainable due to cognitive status Physical Exam Physical Exam: Intubated Respiratory: Auscultation: + crackles Cardiovascular: RRR, no murmur, no edema Gastrointestinal (Abdomen): normal bowel sounds, soft, nontender, no hepatosplenomegaly Results & Data Vital Signs (Past 12 Hours) Vital Signs Temp Pulse Pulse Resp BP BP Pulse Ox 04/13/23 05:31 115 H 26 H 129/105 H 96 04/13/23 04:44 114 H 04/13/23 04:46 92 04/13/23 04:46 04/13/23 04:46 37.2 C 98 H 27 H 133/88 91 O2 Del Method O2 Flow Rate 04/13/23 05:31 Oxymask 10 04/13/23 04:44 04/13/23 04:46 Nasal Cannula 3 04/13/23 04:46 Nasal Cannula 3 04/13/23 04:46 Nasal Cannula 3 Laboratory Results 04/13/23 04/13/23 04/13/23 Range/Units 04:56 04:51 04:51 WBC (4.8-10.8) K/ul RBC (4.20-5.40) M/uL Hgb (12.0-16.0) g/dl POC Hgb 17.7 H (12.0-16.0) g/dl Hct (37.0-47.0) % POC Hct 52 H (37-47) % MCV (80.0-100.0) fL MCH (25.0-34.0) pg MCHC (32.0-36.0) g/dL RDW Std Deviation (36.4-46.3) fL RDW Coeff of Elli (11.5-14.5) % Plt Count (130-400) K/uL MPV (9.4-12.4) fL Immature Gran % (Auto) % Neut % (Auto) % Lymph % (Auto) % [place] % (Auto) % Eos % (Auto) % Baso % (Auto) % Neut # (Auto) (1.40-6.50) K/uL Lymph # (Auto) (1.2-3.4) K/uL [place] # (Auto) (0.11-0.59) K/uL Eos # (Auto) (0-0.50) K/uL Baso # (Auto) (0-0.2) K/uL Immature Gran # (Auto) (0.01-0.20) K/uL PT 12.8 H (9.0-12.0) Seconds INR 1.2 H (0.9-1.1) APTT 33.4 H (21.0-31.0) Seconds PTT Ratio 1.2 POC Sodium 130 L (135-144) mmol/L Sodium 130 L (136-145) mmol/L POC Potassium 4.1 (3.3-5.0) mmol/L Potassium 4.2 (3.5-5.1) mmol/L POC Chloride 89 L (101-112) mmol/L Chloride 91 L (98-107) mmol/L Carbon Dioxide 35 H (21-32) mmol/L POC Total CO2 32 H (24-31) mmol/L Anion Gap 4 (3-11) POC Anion Gap 14.0 L (16-25) mmol/L POC BUN 7 (7-18) mg/dl BUN 8 (6-23) mg/dl Creatinine 0.37 L (0.6-1.2) mg/dl POC Creatinine 0.4 L (0.6-1.3) mg/dl Est Cr Clr Drug Dosing 137.8 ml/min Est GFR ( Amer) 113.7 ml/min Est GFR (Non-Af Amer) 98.1 ml/min BUN/Creatinine Ratio 21.6 H (10-20) Glucose 95 (70-99(Fasting)) mg/dl POC Glucose (other) 98 (70-99) mg/dl Calcium 8.9 (8.6-10.3) mg/dl POC Ioniz Calcium Polina 1.09 L (1.12-1.32) mmol/l Total Bilirubin 1.0 (0.2-1.0) mg/dl AST 57 H (13-39) U/L ALT 26 (7-52) U/L Alkaline Phosphatase 119 H (34-104) U/L Troponin I High Sens 7.0 (0-14) pg/ml Total Protein 6.2 (6.0-8.3) gm/dl Albumin 3.0 L (3.4-5.0) gm/dl Globulin 3.2 (2.5-4.0) gm/dl Albumin/Globulin Ratio 0.9 (0.9-2) Lipase 10 L (11-82) U/L SARS-CoV-2 (PCR) (Negative) Influenza Type A (PCR) (Neg) Influenza Type B (PCR) (Neg) RSV (RT-PCR) (Neg) 04/13/23 04/13/23 Range/Units 04:51 04:50 WBC 9.47 (4.8-10.8) K/ul RBC 4.97 (4.20-5.40) M/uL Hgb 16.2 H (12.0-16.0) g/dl POC Hgb (12.0-16.0) g/dl Hct 47.8 H (37.0-47.0) % POC Hct (37-47) % MCV 96.2 (80.0-100.0) fL MCH 32.6 (25.0-34.0) pg MCHC 33.9 (32.0-36.0) g/dL RDW Std Deviation 48.9 H (36.4-46.3) fL RDW Coeff of Elli 13.8 (11.5-14.5) % Plt Count 304 (130-400) K/uL MPV 9.3 L (9.4-12.4) fL Immature Gran % (Auto) 0.4 % Neut % (Auto) 71.0 % Lymph % (Auto) 14.9 % [place] % (Auto) 9.9 % Eos % (Auto) 3.3 % Baso % (Auto) 0.5 % Neut # (Auto) 6.72 H (1.40-6.50) K/uL Lymph # (Auto) 1.41 (1.2-3.4) K/uL [place] # (Auto) 0.94 H (0.11-0.59) K/uL Eos # (Auto) 0.31 (0-0.50) K/uL Baso # (Auto) 0.05 (0-0.2) K/uL Immature Gran # (Auto) 0.04 (0.01-0.20) K/uL PT (9.0-12.0) Seconds INR (0.9-1.1) APTT (21.0-31.0) Seconds PTT Ratio POC Sodium (135-144) mmol/L Sodium (136-145) mmol/L POC Potassium (3.3-5.0) mmol/L Potassium (3.5-5.1) mmol/L POC Chloride (101-112) mmol/L Chloride (98-107) mmol/L Carbon Dioxide (21-32) mmol/L POC Total CO2 (24-31) mmol/L Anion Gap (3-11) POC Anion Gap (16-25) mmol/L POC BUN (7-18) mg/dl BUN (6-23) mg/dl Creatinine (0.6-1.2) mg/dl POC Creatinine (0.6-1.3) mg/dl Est Cr Clr Drug Dosing ml/min Est GFR ( Amer) ml/min Est GFR (Non-Af Amer) ml/min BUN/Creatinine Ratio (10-20) Glucose (70-99(Fasting)) mg/dl POC Glucose (other) (70-99) mg/dl Calcium (8.6-10.3) mg/dl POC Ioniz Calcium Polina (1.12-1.32) mmol/l Total Bilirubin (0.2-1.0) mg/dl AST (13-39) U/L ALT (7-52) U/L Alkaline Phosphatase (34-104) U/L Troponin I High Sens (0-14) pg/ml Total Protein (6.0-8.3) gm/dl Albumin (3.4-5.0) gm/dl Globulin (2.5-4.0) gm/dl Albumin/Globulin Ratio (0.9-2) Lipase (11-82) U/L SARS-CoV-2 (PCR) NEGATIVE (Negative) Influenza Type A (PCR) Negative (Neg) Influenza Type B (PCR) Negative (Neg) RSV (RT-PCR) Negative (Neg) Diagnostic Findings Chest CTA 04/13/23 04:44 Exam(s): CTA CHEST IV Amt: 117 ML OPTIRAY 320 EXAM: CT Angiography Chest With Intravenous Contrast CLINICAL HISTORY: Reason for exam: PE. TECHNIQUE: Axial computed tomographic angiography images of the chest with intravenous contrast. CTDI is 28.14 mGy and DLP is 922.88 mGy-cm. Automated exposure control was utilized for the study. A dose lowering technique was utilized adhering to the principles of ALARA. MIP reconstructed images were created and reviewed. COMPARISON: No relevant prior studies available. FINDINGS: Artifacts: Motion artifact alignments evaluation. Trachea: Debris within the trachea with expiratory phase. Pulmonary arteries: No evidence of pulmonary embolism within the pulmonary outflow tract or proximal branches. Aorta: Atherosclerotic disease. No thoracic aortic aneurysm. Lungs: Dependent airspace disease within the lungs, right greater than left, which may relate to compressive atelectasis. Sequela of infection/aspiration also possible. No mass. Pleural space: Small right pleural effusion. Given cardiomegaly, findings may relate to sequelae of heart failure. This may be also be reactive in nature from the right lower lobe airspace disease. Heart: Cardiomegaly. Bones/joints: Degenerative changes in the spine. Flowing osteophyte formations in the spine compatible with diffuse idiopathic skeletal hyperostosis (DISH). No acute fracture. No dislocation. Soft tissues: Unremarkable. Lymph nodes: Unremarkable. No enlarged lymph nodes. Tubes, lines and devices: Left subclavian central venous catheter tip in the approach pacemaker with leads superior vena cava. IMPRESSION: 1. Motion artifact alignments evaluation. 2. No evidence of pulmonary embolism within the pulmonary outflow tract or proximal branches. 3. Dependent airspace disease within the lungs, right greater than left, which may relate to compressive atelectasis. Sequela of infection/aspiration also possible. 4. Small right pleural effusion. Given cardiomegaly, findings may relate to sequelae of heart failure. This may be also be reactive in nature from the right lower lobe airspace disease. 5. Debris within the trachea. Findings may be aspiration related. Electronically signed by: Ronn Villaseñor MD 04/13/23 05:26 AM Chest X-Ray 04/13/23 07:17 XR chest 1V portable HISTORY: Intubation. Shortness of breath. COMPARISON: Chest 04/13/2023. FINDINGS: Endotracheal tube terminates 2.2 cm from the leandro. No pneumothorax. No evidence for pulmonary edema. The heart remains mildly enlarged. Small right pleural effusion and right basilar densities persist. The left lung is essentially clear. A right jugular central venous catheter terminates in the proximal SVC. IMPRESSION: 1. Satisfactory support line placement. 2. In comparison to the prior chest CT, there is again suggestion of an esophageal mass which extends into the lower trachea resulting in severe tracheal narrowing. ACT 112: Negative or not required by law. Electronically signed by: Eladio Silvestre M.D. 04/13/2023 7:28 AM
--- NOTE | 2023-04-13 07:35 | Procedure Note ---
Procedure Note Date of Service April 13, 2023 Note INTERNAL JUGULAR CENTRAL LINE PROCEDURE NOTE: Procedure: Internal Jugular Central Line Placement Attending: Dr. Calzada Provider: ANYI Wilkins Indication: Central Drug Administration, Poor Venous Access, Multiple Lab Draws Necessary, etc. Anesthesia:Lidocaine 1% Line placed emergently in the setting of shock/hypotension requiring emergent use of vasopressor support and need for central venous access. A time-out was completed verifying correct patient, procedure, site, positioning, and implants(s) or special equipment if applicable. Patients right neck was cleansed and draped in the typical sterile fashion using Chloraprep. The right internal Jugular Vein and Carotid Artery were identified using ultrasound. The superficial tissue was anesthetized using 3 mL of 1% lidocaine without epinephrine under direct visualization with the ultrasound. After adequate anesthetization was achieved, the Internal Jugular vein was cannulated under direct ultrasound guidance using an introducer needle on a syringe. Good venous blood return was maintained prior to removal of syringe from introducer needle. Using Seldinger Technique, a guide wire was advanced through the introducer needle without resistance. The introducer needle was removed and ultrasound images were obtained of the guide wire within the Internal Jugular Vein and saved to the patients medical record. A small incision was made in penetrating fashion at the guide wire insertion site utilizing an 11 blade scalpel. The dilator was advanced to the vessel without resistance. The dilator was exchanged for the triple lumen catheter which was advanced into the vessel without resistance. The guide wire was removed intact from the catheter without issue. Claves were placed on each catheter tip with confirmation of good blood flow from each lumen. Each port was easily flushed with sterile saline. The catheter was placed at [] cm and sutured in place. BioPatch was applied to the catheter and a sterile Tegaderm dressing was applied over the catheter with careful attention to sterility. Patient tolerated procedure well. No immediate complications were met. Post procedure x-ray was completed, placement was appropriate and no pneumothorax was noted. Procedural Ultrasound Guidance: Procedure Date: 04/13/2023 Indication: Central venous catheter insertion Attending: Dr. Calzada Provider: ANYI Wilkins Artery AND Vein visualized: Yes Compressible Vein: Yes Guidewire or Short Catheter seen in vein prior to dilation: Yes Line confirmed in Vein with ultrasound: Yes Coding CPT Codes Tubes, Drains, and Vasc Access - Tubes, Drains, and Vasc Access: [id number] Insertion Of Non-tunneled Catheter Age 3 Yrs> ([id number]) Tubes, Drains, and Vasc Access - Tubes, Drains, and Vasc Access: [id number] Ultraso und Guidance For Vascular ([id number]) [facility] [place] Procedure Codes (Charges) Tubes, Drains, and Vasc Access Procedure 1: Tubes, Drains, and Vasc Access: [id number] Insertion Of Non-tunneled Catheter Age 3 Yrs> Procedure 2: Tubes, Drains, and Vasc Access: [id number] Ultrasound Guidance For Vascular
[2023-04-13] MEDS ORDERED: KCENTRA (500unit vial) 2000 units IVP IV SCH (07:37)
[2023-04-13] MEDS ORDERED: ACETAMINOPHEN 1,000 MG/100 ML VIAL IV PRN (07:42)
[2023-04-13] MEDS ORDERED: fentaNYL BOLUS from BAG IV PRN (07:42)
[2023-04-13] MEDS ORDERED: STAT IV Infusion **Titration per Protocol STA ×3 (07:42→09:20)
[2023-04-13] MEDS ORDERED: fentaNYL citrate 2,500 MCG/250 ML BAG IV SCH (07:45)
[2023-04-13 08:04] LABS: iSTAT Allen Test Pass; iSTAT Art Bld Gas pCO2 Correct 66 mmHg (35-46); iSTAT Art Bld Gas pH Corrected 7.293 (7.35-7.45); iSTAT Arterial Blood Gas HCO3 32 meg/L (19-24); iSTAT Arterial Blood Gas pCO2 66 mmHg (35-46); iSTAT Arterial Blood Gas pH 7.29 (7.35-7.45); iSTAT Arterial Blood Gas pO2 77 mmHg (80-95); iSTAT Arterial Blood Gas pO2 C 77; iSTAT Carbon Dioxide 34 mmol/L (24-31); iSTAT Hematocrit 53 % (37-47); iSTAT Potassium 4.1 mmol/L (3.3-5.0); iSTAT Site L Radial; iSTAT Sodium 128 mmol/L (135-144)
--- NOTE | 2023-04-13 08:04 | XRay Report ---
XR chest 1V portable CLINICAL HISTORY: Chest pain, nonspecific TECHNIQUE: Single frontal radiograph of the chest was obtained. Comparison: Comparison is made to chest radiograph 04/05/2023 FINDINGS: Dual lead pacemaker is seen. Cardiomegaly is noted. The aortic arch is calcified. Prominence and ceph alization of the vasculature is seen. Small bilateral pleural effusions are seen. IMPRESSION: 1. Cardiomegaly and mild pulmonary edema. 2. Minimal bilateral pleural effusions. ACT 112: Negative or not required by law. Electronically signed by: Andrew Donovan M.D. 04/13/2023 8:03 AM
[2023-04-13 08:25] LABS: Magnesium 1.5 mg/dl (1.7-2.4); Phosphorus 3.6 mg/dl (2.5-4.9)
[2023-04-13] MEDS ORDERED: PANTOprazole 40 MG in SYRINGE 0 ML IV SCH ×2 (09:00→11:00)
[2023-04-13] MEDS: MAGNESIUM SULFATE / D5W 1 GM/100 ML BAG IV SCH ×2 (09:05→10:22)
[2023-04-13] MEDS: VASOPRESSIN 20 UNITS in 0.9 % SODIUM CHLORIDE 100 ML IV SCH ×2 (09:08→15:42)
[2023-04-13] MEDS ORDERED: PROPOFOL BOLUS FROM BAG IV PRN (09:20)
--- NOTE | 2023-04-13 09:20 | Procedure Note ---
Procedure Note: Bronchoscopy Procedure PREOPERATIVE DIAGNOSIS: Hypoxia with aspiration POSTOPERATIVE DIAGNOSIS: Endotracheal mass PROCEDURE PERFORMED: Flexible fiberoptic bronchoscopy with bronchial lavage, endobronchial biopsy and brushing COMPLICATIONS: None. INDICATION: Rule out endobronchial aspiration/malignancy PROCEDURE: Emergent consent was applied, patient was already intubated. Vitals were monitored throughout the procedure. Subsequent to this, the patient was premedicated with 60 mg of propofol Bronchoscope was advanced through the ETT. While passing through the ETT, large endotracheal mass originating from the posterior wall of the trachea was appreciated. It was partially occluded behind the trachea .The bronchoscope was then advanced through the leandro, which was sharp. The scope was then advanced into the right main stem and each segment, subsegement in the right upper lobe, right middle lobe and right lower lobe were visualized. There was moderate amount of bloody secretions in the right lower as well as the right upper lobe which were suctioned out. There were no other findings including anatomic distortion. The bronchoscope was subsequently withdrawn and advanced into the left mainstem. Again, each segment and subsegment was well visualized. No specific masses or other lesions were identified throughout the tracheobronchial tree on the left. There were minimal amount of clear secretion which were suctioned out Endotracheal tube was retracted little bit to expose endotracheal mass. Multiple forceps biopsies were taken Multiple brushings were taken of the mass as well.. Minimal hemorrhage was identified and suctioned clear without difficulty. The bronchoscope was then wedged in the right lower lobe anterior segment and bronchoalveolar lavage samples were obtained. 160 ml of saline was instilled and 45 ml of fluid was aspirated back.The bronchoscope was withdrawn and the area was suctioned clear. The bronchoscope was then withdrawn to the mainstem. The area was suctioned clear. The bronchoscope was then withdrawn. The patient tolerated the procedure well without evidence of desaturation or complications. Bronchoalveolar lavage samples were sent for cell count and cytology. Endobronchial biopsies were sent for pathology. Recommendations: Follow-up cytology and pathology Follow-up chest x-ray Please note the above document was generated using voice recognition software. It may contain grammatical, syntax or spelling errors.Any formal questions or concerns about the content, text or information contained within the body of this dictation should be directly addressed to the provider for clarification. [facility] [place] Procedure Codes (Charges) Pulmonary/Thoracic Procedure 1: Pulmonary and Thoracic: 17509 Dx bronchoscopy/BAL Procedure 2: Pulmonary and Thoracic: 80632 Dx bronchoscopy/brush Procedure 3: Pulmonary and Thoracic: 72824 Bronchoscopy w bronchial or endobronchial bx
[2023-04-13] MEDS: propofoL 1,000 MG/100 ML VIAL IV SCH ×2 (09:31→14:37)
[2023-04-13] MEDS: ICU Protocol for HYPERglycemia SCH ×2 (09:55→11:46)
--- NOTE | 2023-04-13 09:58 | XRay Report ---
XR chest 1V portable HISTORY: Post Bronchoscopy COMPARISON: Chest 04/13/2023. FINDINGS: Endotracheal tube terminates 2.2 cm from the leandro. Right jugular central venous catheter terminates at the proximal SVC. These remain unchanged in position. No pneumothorax. No pleural effus ions. There is a right lower lobe airspace opacity which is new from the prior study. This could be d ue to post bronchoscopy changes or aspiration. The heart remains mildly enlarged. Is left-sided dual- chamber pacemaker. No evidence for pulmonary edema. IMPRESSION: 1. Satisfactory support line placement. 2. No pneumothorax. 3. A new right bibasilar airspace opacity. This could be due to post bronchoscopy changes or an aspir ation pneumonitis. ACT 112: Negative or not required by law. Electronically signed by: Eladio Silvestre M.D. 04/13/2023 9:56 AM
[2023-04-13 10:02] LABS: Thyroid Stimulating Hormone 43.155 uIu/ml (0.300-4.500)
[2023-04-13] MEDS: CEFEPIME 2,000 MG in SYRINGE 0 ML IV SCH ×2 (10:22→17:25)
[2023-04-13 10:36] LABS: Eosinophil Body Fluid Man 5 %; Fluid Mono/Macrophage 16 %; Lymphocyte Body Fluid Man 3 %; Neutrophil Body Fluid Man 76 %
[2023-04-13 10:42] LABS: T4 Free Thyroxine 1.3 ng/dl (0.61-1.60)
--- NOTE | 2023-04-13 10:45 | Procedure Note ---
Procedure Note Date of Service April 13, 2023 Note Procedure: Arterial Line Placement Attending: Dr. Calzada APC: Andrew Morrow PA-C Indication: Hemodynamic monitoring Anesthesia: Lidocaine 1% Emergent Consent implied in the setting of clinical deterioration and need for close hemodynamic monitoring, ABG monitoring, frequent lab draws, etc. A time-out was completed verifying correct patient, procedure, site, positioning, and implant(s) or special equipment if applicable. Allens test was performed to ensure adequate perfusion. Patients LEFT wrist was prepped and draped in the usual sterile fashion. Ultrasound guidance was used to aid needle placement. A 20g Arrow arterial line was introduced into the LEFT Radial artery. Catheter was threaded, and the needle was removed with appropriate blood return. Good waveform was observed. The patient tolerated the procedure well. Confirmati on of placement with ultrasound. Blood Loss: Minimal Complications: None Procedural Ultrasound Guidance: Procedure Date: 04/13/2023 Indication: Hemodynamic Monitoring, Frequent ABGs/Lab draws. Attending: Dr. Calzada APC: Andrew Morrow PA-C Artery Identified: YES Line confirmed in Artery with ultrasound: YES Complications: NONE Patient tolerated procedure: WELL Coding CPT Codes Tubes, Drains, and Vasc Access - Tubes, Drains, and Vasc Access: [id number] Arterial Cath/Cannulation Sampling/Monitoring/Transfusion ([id number]) [facility] [place] Procedure Codes (Charges) Tubes, Drains, and Vasc Access Procedure 1: Tubes, Drains, and Vasc Access: [id number] Arterial Cath/Cannulation Sampling/Monitoring/Transfusion
--- NOTE | 2023-04-13 11:53 | Communication Note ---
Date of Service: April 13, 2023 Findings on bronchoscopy noted. Discussed with Dr. Calzada. Will assess tomorrow for appropriate time to do EGD
[2023-04-13] MEDS ORDERED: metroNIDAZOLE 500 MG/100 ML BAG IV SCH (14:00)
[2023-04-13] MEDS ORDERED: HYDROCORTISONE SOD 50 MG in SYRINGE 0 ML IV SCH ×2 (14:00→16:00)
[2023-04-13] MEDS ORDERED: GLUCAGON FOR INJ 1 MG VIAL SQ PRN ×2 (15:56→16:16)
[2023-04-13] MEDS ORDERED: DEXTROSE 50% 50 ML SYRINGE IV PRN ×2 (15:56→16:16)
[2023-04-13] MEDS ORDERED: GLUCOSE 40% GEL 15 GM TUBE PO PRN ×2 (15:56→16:16)
[2023-04-13] MEDS ORDERED: CARBOHYDRATES FOR HYPOGLYCEMIA PO PRN ×2 (15:56→16:16)
[2023-04-13] MEDS ORDERED: GLUCOSE 10 TAB/TUBE PO PRN ×2 (15:56→16:16)
[2023-04-13 17:13] LABS: Appearance Urine Clear (Clear); Bacteria Urine Automated Negative (Negative); Bilirubin Urine Negative (Negative); Blood Urine Negative (Negative); Color Urine Dark Yellow; Glucose Urine UA Negative (Negative); Ketones Urine Trace (Negative); Leukocyte Esterase Urine Negative (Negative); Nitrite Urine Negative (Negative); Protein Urine 1+ (Negative); Specific Gravity Urine > 1.045 (1.000-1.030); Urobilinogen Urine Negative (Negative)
--- NOTE | 2023-04-13 17:13 | Communication Note ---
Date of Service: April 13, 2023 Critical CARE addendum: Given the end of bronchial mass which is almost completely obstructing the upper airway of the patient I got in touch with [facility]. I was able to speak with Dr. Kraus and gave him the perspective and the likelihood of patient needing an endobronchial stent possibly as there is very high possibility that there will be total airway collapse once the ET tube is out. Patient is supposed to have an EGD done as well tomorrow by GI here. After discussion plan was made to transfer the patient to [facility] to have her evaluated by the IP there. Whether the patient will get a stent will be decided by the interventional survey manager over there Patient's family who are at bedside were made aware, all question and inquiries were answered in depth I have personally spent additional 23 minutes of critical care time in the direct management of this patient. This is a life/limb threatening event. This includes time spent evaluating patient, direct bedside care, chart review, placing orders, interpretation of diagnostic studies, discussion with consultants, patient, and family members, as well as other required patient management activities. This time is exclusive of all separately billable procedures, and teaching time and separate from and in addition to any other critical care service time. Please note the above document was generated using voice recognition software. It may contain grammatical, syntax or spelling errors. Coding Level of Care Code 79049 CRITICAL CARE EA ADD 30M
[2023-04-13 17:26] LABS: Cast Urine Automated 0 /lpf (0-5)
[2023-04-13] MEDS ORDERED: INSULIN ASPART PER UNIT CHARGE SC SCH (18:00)
[2023-04-13] MEDS ORDERED: SUCCINYLCHOLINE CHLORIDE 20 MG/ML 10 ML VIAL IV ONE (18:59)
[2023-04-13] MEDS ORDERED: KETAMINE HCL INJ 50 MG/ML 10 ML VIAL IV ONE (18:59)
--- NOTE | 2023-04-13 22:21 | Discharge Summary ---
Date of Service April 13, 2023 Admission HPI Per Admitting Provider 82yo Female with PMH CREST, atrial fibrillation s/p pacer, hypothyroidism, HTN, HLD, restrictive lung disease here for aspiration. Patient was recently hospitalized from 04/03-04/07 for concern UTI fall, was treated with ci profloxacin, sent to [facility] for Rehab. Per family patient may have been choking on food for the past week. Patient recalls yesterday morning she choked while eating fernandez and eggs. Notes some hemoptysis. She denies any fever nausea vomitting chest pain abd pain diarrhea constipation. She states she has not been able to pee on her own since leaving the hospital, still using a catheter. Patient denies history of swallowing difficulties, but acknowledges that her CREST may make it difficult to swallow food. Patient states her POA is all 4 of her children. Principal Diagnosis bronchial mass causing obstruction airway Discharge Exam intubated sedated Discharge Data Allergies Allergy/AdvReac Type Severity Reaction Status Date / Time Penicillins Allergy Intermediate RASH AND Verified 04/03/23 00:34 ITCHING ON TORSO. FRAGRANCE AdvReac Unknown Sneezing Uncoded 04/03/23 00:34 Consultations 04/13/23 05:31 ED Decision to Admit Stat 04/13/23 05:48 Consult Soil Fertility Specialist Stat 04/13/23 06:59 Consult Gastroenterology Routine Consult Soil Fertility Specialist Routine Ordered Studies 04/13/23 04:44 CT angio chest PE protocol Stat Hospital Course (1) Aspiration into airway: 82yo Female with PMH CREST, atrial fibrillation s/p pacer, hypothyroidism, HTN, HLD, restrictive lung disease here for aspiration. Aspiration Pneumonia -currently 96% O2 sat on 10L oxymask -CT chest: Motion artifact alignments evaluation. No evidence of pulmonary embolism within the pulmonary outflow tract or proximal branches. Dependent airspace disease within the lungs, right greater than left, which may relate to compressive atelectasis. Sequela of infection/aspiration also possible. Small right pleural effusion. Given cardiomegaly, findings may relate to sequelae of heart failure. This may be also be reactive in nature from the right lower lobe airspace disease. Debris within the trachea. Findings may be aspiration related. -in ED ordered ceftriaxone flagyl -admit to ICU -consult placed to ICU for possible bronch -consult placed to gastroenterology -consulted speech therapy -held eliquis -NPO -Discussed with Dr. Meyer regarding her eliquis, please call her before bronchoscopy to administer Factor X 2000mg right before procedure -ordered MRSA swab due to bronchial mass, patient bronched intubated and will be transferred to tertiary center HTN, afib -lisinopril, metoprolol PO on hold -monitor heart rate, administer metoprolol 5mg IV for rate>120 Difficulty with urination -catheter in place Sacral Ulcer -consult wound care Hypothyroidism -levothyroxine on hold HLD -atorvastatin on hold FENa: NPO Code Status: Full DVT PPX: SCDs PT/OT: ordered, speech therapy ordered (2) Hypoxic: (3) UTI (urinary tract infection): (4) Elevated troponin: (5) Afib: (6) HTN (hypertension): (7) HLD (hyperlipidemia): (8) Hypothyroidism: (9) CREST variant of scleroderma: Total Time Total Time Spent Total Time Spent (In Minutes): 35 Discharge Plan Discharge Items Patient Disposition: Transfer Acute Care Hospital Reason For Visit: ASPIRATION PNEUMONIA Discharge Diagnosis: airway obstruction Activity: Resume your previous activity Non-emergency contact: Primary Care Provider Call non-emergency contact if: you have any medication questions Follow-up/Referrals: Rayray Villalta MD [Primary Care Provider] - Diet: Nothing by Mouth Addtl Attending Provider Instructions: transfer to [facility] Propofol and fentanyl drip Pending Studies at Discharge: No Stand-Alone Forms: My [facility] Skilled Items Patient informed of condition?: Yes DNR: No Discharge Level of Care: Other Communicable Disease: No Discharge Prognosis: Deteriorating Lines: Peripheral IV Urinary Catheter: Yes Medications and DC Order Prescriptions: Continued Santyl 250 unit/gram ointment 1 applic topical 3XWK Qty: 30 0RF levothyroxine 100 mcg tablet 100 mcg PO DAILY Qty: 90 3RF lisinopril 2.5 mg tablet 2.5 mg PO DAILY Qty: 90 3RF meloxicam 7.5 mg tablet 7.5 mg PO DAILY Qty: 90 3RF clobetasol 0.05 % ointment 1 g TOP BID Qty: 60 1RF Eliquis 5 mg tablet 5 mg PO BID Qty: 180 3RF atorvastatin 10 mg tablet 10 mg PO DAILY Pulmicort Flexhaler 180 mcg/actuation aerosol powdr breath activated 2 inh inhalation DAILY metoprolol succinate 100 mg tablet extended release 24 hr 100 mg PO DAILY Discharge Orders: Discharge Order (Routine); Ordered 04/13/23 Ordered By: Kory Montano Admission Data Admit Date/Time: 04/13/23 05:58 Attending Provider: Kory Montano Admit Provider: Marie Kohli Primary Care Provider: Rayray Villalta Other Providers: Marjan Calzada Wilmot C. Jr Other Interventions: Discharge Summary Assessment (RN) Last Done: 04/13/23 17:52 Coding Level of Care Code 39546 INP/OBS DISCH >30 MIN Diagnoses Aspiration into airway T17.908A Hypoxic R09.02 UTI (urinary tract infection) N39.0 Elevated troponin R77.8 Afib I48.0 Atrial fibrillation type: paroxysmal HTN (hypertension) I10 Hypertension type: essential hypertension HLD (hyperlipidemia) E78.5 Hypothyroidism E03.9 CREST variant of scleroderma M34.1
--- NOTE | 2023-04-14 03:32 | Billing Data ---
Date of Service April 14, 2023 Coding Level of Care Code 80597 CRITICAL CARE
[2023-04-14] MEDS ORDERED: LEVOTHYROXINE SODIUM 75 MCG in SYRINGE 0 ML IV SCH (09:00)
--- NOTE | 2023-04-14 12:11 | Coding Query ---
PRESSURE ULCER DOCUMENTATION To promote full compliance with coding requirements relating to patient care, physician participation is requested in all cases of harpooner uncertainty. Please assist us with the question(s) below: Please specify the known or suspected type by placing an "X" within the parenthesis (x). A pressure ulcer of the Sacral Decubitus Ulcer If possible, please check the box that provides the specific stage of the pressure ulcer ( ) Stage I ( ) Stage II ( ) Stage III (X) Stage IV ( ) Unstageable Was the pressure ulcer present on admission? Please check the appropriate box for the pressure ulcer: (X) Present on admission ( ) Not present on admission ( ) Unable to be clinically determined Thank you Edith CID
--- NOTE | 2023-04-15 06:04 | Electrocardiogram Report ---
Test Reason : Blood Pressure : / mmHG Vent. 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
== END 2023-04-13 19:00 | disposition short-term general hospital (02) | DRG 208 ==
LOC: ED 04:38 → SUATTDRO 05:58 → 1E 05:58